=== PATIENT | female | born 1970 | race Caucasian/White ===

== ENCOUNTER 2016-04-10 | Emergency (ER) | payer MEDICARE, MEDICAID | END 2016-04-10 16:14 | disposition left against medical advice (07) | DX: Z53.21 Procedure and treatment not carried out due to patient leaving prior to being seen by health care provider (principal) ==

== ENCOUNTER 2016-04-19 | Outpatient (CLI) | payer MEDICARE, MEDICAID | END 2016-04-19 16:59 | disposition critical access hospital (66) | DX: M25.512 Pain in left shoulder (principal) | CPT/HCPCS: A0425; A0427 ==

== ENCOUNTER 2016-04-19 17:40 | Emergency (ER) | payer MEDICARE, MEDICAID | END 2016-04-19 18:24 | disposition home or self-care (01) | DX: S43.102D Unspecified dislocation of left acromioclavicular joint, subsequent encounter (principal); F10.120 Alcohol abuse with intoxication, uncomplicated; W19.XXXD Unspecified fall, subsequent encounter; I10 Essential (primary) hypertension; E11.9 Type 2 diabetes mellitus without complications; F17.200 Nicotine dependence, unspecified, uncomplicated ==

== ENCOUNTER 2016-05-22 16:43 | Emergency (ER) | payer MEDICARE, MEDICAID | END 2016-05-22 20:34 | disposition home or self-care (01) | DX: F10.10 Alcohol abuse, uncomplicated (principal); M25.512 Pain in left shoulder; G89.29 Other chronic pain; S43.102D Unspecified dislocation of left acromioclavicular joint, subsequent encounter; X58.XXXD Exposure to other specified factors, subsequent encounter; I10 Essential (primary) hypertension; E11.9 Type 2 diabetes mellitus without complications; E03.9 Hypothyroidism, unspecified; F17.200 Nicotine dependence, unspecified, uncomplicated ==

== ENCOUNTER 2016-09-06 09:54 | Emergency (ER) | payer MEDICARE, MEDICAID ==
[2016-09-06] MEDS ORDERED: ONDANSETRON 4 MG/2 ML VIAL IVP STA (10:12)
[2016-09-06] MEDS ORDERED: NITROGLYCERIN SL 0.4 MG TABLET SL STA (10:12)
[2016-09-06] MEDS ORDERED: MORPHINE 2 MG/ML SYRINGE IVP STA ×2 (10:12→11:52)
[2016-09-06] MEDS ORDERED: ASPIRIN CHEW 81 MG TABLET PO STA (10:12)
--- NOTE | 2016-09-06 10:20 | ED Physician Documentation ---
History of Present Illness - Stated complaint Stated Complaint: CHEST PX - Chief complaint Chief Complaint: Cardiac - Additonal information Additional information: hx from pt 45 female yesterday felt weak exhausted a little SOA at 2 Am developed severe pain between her shoulder blades and now the pain is in her chest she is unable to describe the nature/quality of the pain 10/10 severity worse laying down and breathing + SOA + nausea no vomit no abd pain no leg swelling Review of Systems Constitutional: denies: Fever, Chills Cardiac: reports: Chest pain / pressure Respiratory: reports: Dyspnea. denies: Cough GI: reports: Nausea. denies: Abdominal Pain, Vomiting : reports: Hysterectomy. denies: Now EGA Musculoskeletal: reports: Back pain. 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 : None HEENT: None Psych: Depression, Anxiety Musculoskeletal: None Derm: None - Past Surgical History Past Surgical History: Yes Ortho: Knee replacement /CLOTH SHRINKING SUPERVISOR: Hysterectomy - Present Medications Home Medications: Ambulatory Orders Medication Instructions Recorded Confirmed Propranolol [Inderal] 180 mg PO DAILY 04/04/16 09/06/16 Baclofen 1 tab PO TID 09/06/16 09/06/16 Indomethacin [Indocin] 25 mg PO TIDWM #21 capsule 09/06/16 - Allergies Allergies/Adverse Reactions: Allergies Allergy/AdvReac Type Severity Reaction Status Date / Time Penicillins Allergy Mild Itching Verified 04/10/16 14:29 adhesive Allergy Itching Verified 09/06/16 09:59 - Social History Does the pt smoke?: Yes Smoking Status: Current every day smoker Does the pt drink ETOH?: Yes Does the pt have substance abuse?: No - Immunizations Immunizations are current?: Yes - POLST Patient has POLST: No PD ED PE NORMAL - Vitals Vital signs reviewed: Yes - General General: Alert and oriented X 3 - HEENT HEENT: Atraumatic - Neck Neck: Supple, no meningeal sign - Cardiac Cardiac: RRR, No murmur - Respiratory Respiratory: No respiratory distress, Clear bilaterally - Abdomen Abdomen: Soft, Non tender - Derm Derm: Normal color - Extremities Extremities: No deformity, No tenderness to palpate, Normal ROM s pain, No edema , No calf tenderness / cord - Neuro Neuro: Alert and oriented X 3, sole blacker 2-12 intact, No motor deficit Results - Vitals Vitals: Vital Signs - 24 hr 09/06/16 09/06/16 09/06/16 09:57 11:05 11:53 Temperature 36.7 C Heart Rate 107 H 81 82 Respiratory 19 16 16 Rate Blood Pressure 142/92 H 126/81 H 113/73 O2 Saturation 100 98 98 Oxygen O2 Source Room air - EKG (time done) 1005 Rate: Rate (enter#) (87) Rhythm: NSR Intervals: Normal [place] Ischemia: Normal ST segments - Labs Labs: Laboratory Tests 09/06/16 09/06/16 09/06/16 10:05 10:05 10:05 WBC 8.0 RBC 4.08 L Hgb 14.5 Hct 41.8 MCV 102.3 H MCH 35.4 H MCHC 34.6 RDW 13.7 Plt Count 287 MPV 10.1 Neut # 5.3 Lymph # 1.9 [place] # 0.5 Eos # 0.1 Baso # 0.2 H Absolute Nucleated RBC 0.00 Nucleated RBCs 0.0 Sodium 136 Potassium 3.8 Chloride 98 L Carbon Dioxide 26 Anion Gap 12.0 BUN 15 Creatinine 0.6 Estimated GFR (MDRD) 107 Glucose 150 H Calcium 9.8 Total Bilirubin 0.8 AST 38 ALT 54 Alkaline Phosphatase 72 Troponin I < 0.04 Total Protein 8.6 H Albumin 4.6 Globulin 4.0 Albumin/Globulin Ratio 1.1 Lipase 21 L 09/06/16 13:00 WBC RBC Hgb Hct MCV MCH MCHC RDW Plt Count MPV Neut # Lymph # [place] # Eos # Baso # Absolute Nucleated RBC Nucleated RBCs Sodium Potassium Chloride Carbon Dioxide Anion Gap BUN Creatinine Estimated GFR (MDRD) Glucose Calcium Total Bilirubin AST ALT Alkaline Phosphatase Troponin I < 0.04 Total Protein Albumin Globulin Albumin/Globulin Ratio Lipase - Rads (name of study) CTPA Radiology: See rad report (no PE no dissection no aneurysm old rib fx) PD MEDICAL DECISION MAKING - ED course ED course: neg trop X 2 10 hr s/p onset of pain neg EKG CTA no PE or dissection etiology unclear but have ruled out the most life threatening issues pain is worse laying down and better sitting up so consider pericarditiis will reassure and dc with NSAIDS and PMD fup Departure - Departure Disposition: 01 Home, Self Care Clinical Impression: Chest pain Qualifiers: Chest pain type: unspecified Qualified Code(s): R07.9 - Chest pain, unspecified Condition: Good Instructions: ED Chest Pain Pericarditis Prescriptions: Indomethacin [Indocin] 25 mg PO TIDWM #21 capsule Comments: The tests for a heart attack were negative. The CT scan did not show a blood clot in your lungs nor an aneurysm or tear of your aorta. I suspect the pain may be due to inflammation around your heart called percarditis. The CT scan does not show fluid accumulating around your heart so it is OK for you to be treated at home. Take the anti-inflammatory medication I prescribed. Please follow up with your PMD for a recheck within the week - I recommend your PMD order an echocardiogram of your heart as an outpatient Forms: Activity restrictions
[2016-09-06] MEDS ORDERED: NITROGLYCERIN SL 0.4 MG TABLET SL ONE (10:23)
[2016-09-06] MEDS ORDERED: MORPHINE 2 MG/ML SYRINGE ONE ×2 (10:23→11:54)
[2016-09-06] MEDS ORDERED: ASPIRIN CHEW 81 MG TABLET ONE (10:23)
[2016-09-06] MEDS ORDERED: ONDANSETRON 4 MG/2 ML VIAL ONE (10:23)
[2016-09-06 10:35] LABS: BASOPHILS # (AUTO) 0.2 10^3/uL (0.0-0.1); BASOPHILS % (AUTO) 1.9 %; EOSINOPHILS # (AUTO) 0.1 10^3/uL (0.0-0.7); EOSINOPHILS % (AUTO) 0.8 %; HCT - HEMATOCRIT 41.8 % (37.0-47.0); HGB - HEMOGLOBIN 14.5 g/dL (12.0-16.0); LYMPHOCYTES # (AUTO) 1.9 10^3/uL (1.5-3.5); LYMPHOCYTES % (AUTO) 24.3 %; MEAN CORPUSCULAR HEMOGLOBIN 35.4 pg (27.0-31.0); MEAN CORPUSCULAR HGB CONC 34.6 g/dL (32.0-36.0); MEAN CORPUSCULAR VOLUME 102.3 fL (81.0-99.0); MEAN PLATELET VOLUME 10.1 fL (7.9-10.8); MONOCYTES # (AUTO) 0.5 10^3/uL (0.0-1.0); MONOCYTES % (AUTO) 6.7 %; NEUTROPHILS # (AUTO) 5.3 10^3/uL (1.5-6.6); NEUTROPHILS % (AUTO) 66.3 %; RED BLOOD COUNT 4.08 10^6/uL (4.20-5.40); RED CELL DISTRIBUTION WIDTH 13.7 % (12.0-15.0)
--- NOTE | 2016-09-06 10:44 | XRAY Preliminary Report ---
Exam: XR Chest 2 View PA/LAT IMPRESSION: Normal 2-view chest radiography. [facility] SITE ID: [id number]
--- NOTE | 2016-09-06 10:46 | XRAY Report ---
EXAM: CHEST RADIOGRAPHY EXAM DATE: 09/06/2016 10:08 AM. CLINICAL HISTORY: Chest pain. COMPARISON: 09/14/2015. TECHNIQUE: 2 views. FINDINGS: Lungs/Pleura: No focal opacities evident. No pleural effusion. No pneumothorax. Normal volumes. Mediastinum: Heart and mediastinal contours are unremarkable. Other: None. IMPRESSION: Normal 2-view chest radiography. [facility] Referring Provider Line: [phone] SITE ID: [id number]
[2016-09-06 10:49] LABS: ALBUMIN/GLOBULIN RATIO 1.1 (1.0-2.2); BILIRUBIN,TOTAL 0.8 mg/dL (0.2-1.0); CALCIUM 9.8 mg/dL (8.5-10.3); CREATININE 0.6 mg/dL (0.4-1.0); POTASSIUM 3.8 mmol/L (3.5-5.0); TOTAL PROTEIN 8.6 g/dL (6.7-8.2)
[2016-09-06] MEDS ORDERED: IOPAMIDOL-300 100 ML VIAL IVP ONE (12:43)
--- NOTE | 2016-09-06 13:26 | CT Preliminary Report ---
Exam: CT Chest Angio (AORTA) IMPRESSION: No evidence of an aortic aneurysm or dissection. No evidence of a pulmonary embolus. Old bilateral rib fractures. [facility] SITE ID: [id number]
--- NOTE | 2016-09-06 13:29 | CT Report ---
EXAM: CTA CHEST EXAM DATE: 09/06/2016 12:42 PM CLINICAL HISTORY: Cp back pain. TECHNIQUE: Prior to and following intravenous administration of , multiplanar 3D imaging of the chest was performed. In accordance with CT protocol optimization, one or more of the following dose reduction techniques w ere utilized for this exam: automated exposure control, adjustment of mA and/or KV based on patient s ize, or use of iterative reconstructive technique. COMPARISON: None. FINDINGS: THORACIC AORTA: The sinuses of Valsalva measures 2.9 cm. The sinotubular junction measures 2.5 cm. The proximal ascending thoracic aorta measures 2.8 cm. The distal ascending thoracic aorta measures 2.8 cm. The aortic arch measures 2.6 cm. The proximal descending thoracic aorta measures 2.2 cm. The middle descending thoracic aorta measures 2.3 cm. The distal descending thoracic aorta measures 2.1 cm. The thoracic aorta is without evidence of aneurysmal dilatation or dissection. THORACIC AORTA CALCIFICATIONS: There are no significant calcifications involving the thoracic aorta. GREAT VESSELS: The origins of the innominate, right subclavian, right common carotid, left common car otid and left subclavian arteries demonstrate a normal appearance. Both vertebral arteries are patent . LEFT ATRIAL APPENDAGE: The left atrial appendage is without evidence of a filling defect. PULMONARY ARTERIES: There is adequate opacification of the pulmonary arteries. There is no filling de fect to suggest the presence of a pulmonary embolus. UPPER ABDOMINAL AORTA: The upper abdominal aorta is without evidence of aneurysmal dilatation or diss ection. MESENTERIC ARTERIES: The origin of the celiac trunk is normal in appearance. The common hepatic, left gastric and splenic arteries demonstrates a normal course and caliber. The proximal SMA is normal in appearance. RENAL ARTERIES: There are 3 right renal arteries identified and a single left renal artery without ev idence of significant stenosis. CHEST CT: There is no evidence of a mediastinal mass or lymphadenopathy. There is no pulmonary mass, infiltrate, pleural effusion or pneumothorax seen. Old left third through fifth rib fractures are not ed. Old right seventh and eighth rib fractures are noted. The visualized upper abdominal organs are without evidence of an enhancing mass. There are degenerati ve changes of the thoracic and lumbar spine. IMPRESSION: No evidence of an aortic aneurysm or dissection. No evidence of a pulmonary embolus. Old bilateral rib fractures. [facility] Referring Provider Line: [phone] SITE ID: [id number]
[2016-09-06] MEDS ORDERED: INDOMETHACIN 25 MG CAPSULE PO STA (13:48)
[2016-09-06] MEDS ORDERED: INDOMETHACIN 25 MG CAPSULE PO ONE (13:50)
[2016-09-06 13:56] VITALS: BP 114/74
== END 2016-09-06 14:04 | disposition home or self-care (01) ==
LOC: ED 09:54
DX: R07.9 Chest pain, unspecified (principal); I10 Essential (primary) hypertension; E11.9 Type 2 diabetes mellitus without complications; E03.9 Hypothyroidism, unspecified; F17.200 Nicotine dependence, unspecified, uncomplicated
CPT/HCPCS: 36415; 71020; 71275; 80053; 83690; 84484; 85025; 93005; 93010; 96374; 96375; 96376; 99284; A9270; Q9967

== ENCOUNTER 2016-09-09 08:29 | Emergency (ER) | payer MEDICARE, MEDICAID ==
--- NOTE | 2016-09-09 08:38 | ED Physician Documentation ---
PD HPI CHEST PAIN - Stated complaint Stated Complaint: CHEST PAIN - Chief complaint Chief Complaint: Cardiac - History obtained from History obtained from: Patient - History of Present Illness Timing - onset: How many days ago (4-5) Timing - onset during: Rest (she has had sharp pain left anterior chest for at least 4-5 days, gradually worse. Seen 3 days ago for it and had CXR, ECG, troponin, labs, CT-A chest - which did not reveal obvious cause. Dx with possible pericarditis. She says the pain has stayed the same and today she is having nausea with vomiting and some loose stool. Started the Indomethacin 3 days ago. Had been on betablocker and Baclofen for 11 days to help with alcohol cessation.) Timing - details: Gradual onset, Still present Quality: Aching, Sharp, Pain Location: Left chest Radiation: Back Improved by: Rest Worsened by: Inspiration, Position (lying flat feel worse) Associated symptoms: Shortness of air, Nausea, Vomiting (today couple of times) . No: Diaphoresis, Feeling faint / dizzy Similar symptoms before: Has not had sx before Recently seen: Emergency Dept Review of Systems Constitutional: denies: Fever, Chills Nose: denies: Rhinorrhea / runny nose, Congestion Throat: denies: Sore throat Cardiac: reports: Chest pain / pressure. denies: Palpitations Respiratory: denies: Dyspnea, Cough, Wheezing GI: reports: Nausea, Vomiting (today), Diarrhea (twice today). denies: Abdominal Pain : denies: Dysuria, Frequency Neurologic: denies: Focal weakness, Numbness, Near syncope PD PAST MEDICAL HISTORY - Past Medical History Cardiovascular: Hypertension Respiratory: Shortness of breath Neuro: None Endocrine/Autoimmune: Type 2 diabetes, HyPOthyroidism GI: None SPECIFICATION WRITER: None : None HEENT: None Psych: Depression, Anxiety Musculoskeletal: None Derm: None - Past Surgical History Past Surgical History: Yes Ortho: Knee replacement /SPECIFICATION WRITER: Hysterectomy - Present Medications Home Medications: Ambulatory Orders Medication Instructions Recorded Confirmed Propranolol [Inderal] 180 mg PO DAILY 04/04/16 09/09/16 Baclofen 1 tab PO TID 09/06/16 09/09/16 Indomethacin [Indocin] 25 mg PO TIDWM #21 capsule 09/06/16 09/09/16 Hydrocodone/Acetaminophen [[place] 1 each PO Q6H PRN #20 tablet 09/09/16 5-325 Tablet] Ondansetron HCl [Zofran] 4 mg PO Q6H PRN #20 tablet 09/09/16 - Allergies Allergies/Adverse Reactions: Allergies Allergy/AdvReac Type Severity Reaction Status Date / Time Penicillins Allergy Mild Itching Verified 04/10/16 14:29 adhesive Allergy Itching Verified 09/06/16 09:59 - Social History Does the pt smoke?: Yes Smoking Status: Current every day smoker Does the pt drink ETOH?: Yes Does the pt have substance abuse?: No - Immunizations Immunizations are current?: Yes - POLST Patient has POLST: No PD ED PE NORMAL - Vitals Vital signs reviewed: Yes - General General: Alert and oriented X 3, No acute distress, Well developed/nourished, Other (very anxious) - Neck Neck: Supple, no meningeal sign, No adenopathy - Cardiac Cardiac: RRR, No murmur - Respiratory Respiratory: Clear bilaterally, Other (left chestwall tenderness about rib 5-6 mid axillary line without redness, sores. Bedside U/S showed no pericardial fluid.) - Abdomen Abdomen: Normal bowel sounds, Soft, Non tender - Derm Derm: Normal color, Warm and dry - Extremities Extremities: Normal ROM s pain, No edema, No calf tenderness / cord - Neuro Neuro: Alert and oriented X 3, No motor deficit, Normal speech - Psych Psych: No: Normal affect (anxious) Results - Vitals Vitals: Vital Signs - 24 hr 09/09/16 09/09/16 08:35 10:23 Temperature 36.5 C Heart Rate 62 62 Respiratory 24 16 Rate Blood Pressure 156/113 H 135/113 H O2 Saturation 100 100 Oxygen O2 Source Room air PD MEDICAL DECISION MAKING - ED course Complexity details: reviewed old records, re-evaluated patient, considered differential, d/w patient Departure - Departure Disposition: 01 Home, Self Care Clinical Impression: Pleuritic chest pain Condition: Stable Record reviewed to determine appropriate education?: Yes Instructions: ED Chest Pain Atypical Unkn Cause, ED Chest Pain Pleurisy Prescriptions: Hydrocodone/Acetaminophen [[place] 5-325 Tablet] 1 each PO Q6H PRN #20 tablet PRN Reason: Pain Ondansetron HCl [Zofran] 4 mg PO Q6H PRN #20 tablet PRN Reason: Nausea / Vomiting Comments: Continue current medications. Add Zofran for nausea and hydrocodone for pains as needed. Recheck if not improved over the next few more days. Discharge Date/Time: 09/09/16 10:36
[2016-09-09] MEDS ORDERED: HYDROmorphone 1 MG/ML SYRINGE IVP STA (08:57)
[2016-09-09] MEDS ORDERED: ONDANSETRON ODT 4 MG TABLET TL STA (08:57)
[2016-09-09] MEDS ORDERED: DEXAMETHASONE 10 MG/ML VIAL PO STA (08:58)
[2016-09-09] MEDS ORDERED: PROMETHAZINE 25 MG/1 ML VIAL IM STA (08:58)
[2016-09-09] MEDS ORDERED: DEXAMETHASONE 10 MG/ML VIAL ONE (09:04)
[2016-09-09] MEDS ORDERED: CHERRY SYRUP 10 ML UDC PO ONE (09:04)
[2016-09-09] MEDS ORDERED: HYDROmorphone 1 MG/ML SYRINGE ONE (09:04)
[2016-09-09] MEDS ORDERED: PROMETHAZINE 25 MG/1 ML VIAL ONE (09:04)
[2016-09-09] MEDS ORDERED: ONDANSETRON ODT 4 MG TABLET ONE (09:04)
[2016-09-09 10:24] VITALS: BP 135/113
--- NOTE | 2016-09-09 20:04 | ED Physician Documentation ---
ED Addendum - Addendum Addendum: 09/09/16 20:03 unscheduled return visit - chart accessed for follow up and educational purposes
== END 2016-09-09 10:36 | disposition home or self-care (01) ==
LOC: ED 08:29
DX: R07.81 Pleurodynia (principal); E11.9 Type 2 diabetes mellitus without complications; E03.9 Hypothyroidism, unspecified; F17.200 Nicotine dependence, unspecified, uncomplicated
CPT/HCPCS: 93005; 93010; 96372; 96374; 99283; 99284; A9270; J1170; Q0162

== ENCOUNTER 2016-10-06 03:22 | Outpatient (CLI) | payer MEDICARE, MEDICAID | END 2016-10-06 03:23 | disposition EMS.NT | LOC: EMS 03:22 | PROVIDERS: ATTEND Surgery | DX: R51 Headache (principal); R07.9 Chest pain, unspecified ==

== ENCOUNTER 2016-11-08 20:33 | Outpatient (CLI) | payer MEDICARE, MEDICAID | END 2016-11-08 20:34 | disposition critical access hospital (66) | LOC: EMS 20:33 | PROVIDERS: ATTEND Surgery | DX: T50.902A Poisoning by unspecified drugs, medicaments and biological substances, intentional self-harm, initial encounter (principal) | CPT/HCPCS: A0425; A0429 ==

== ENCOUNTER 2016-11-08 21:17 | Inpatient (IN) | payer MEDICARE, MEDICAID ==
[2016-11-08] MEDS ORDERED: WATER FOR INJECTION,STERILE 10 ML ONE (21:21)
[2016-11-08] MEDS ORDERED: OLANZapine 10 MG VIAL IM ONE (21:21)
[2016-11-08] MEDS ORDERED: OLANZapine 10 MG VIAL IM STA (21:24)
[2016-11-08 22:05] LABS: BASOPHILS % (AUTO) 0.3 %; EOSINOPHILS % (AUTO) 0.7 %; HCT - HEMATOCRIT 42.2 % (37.0-47.0); HGB - HEMOGLOBIN 14.5 g/dL (12.0-16.0); LYMPHOCYTES # (AUTO) 2.5 10^3/uL (1.5-3.5); LYMPHOCYTES % (AUTO) 42.5 %; MEAN CORPUSCULAR HEMOGLOBIN 34.8 pg (27.0-31.0); MEAN CORPUSCULAR HGB CONC 34.4 g/dL (32.0-36.0); MEAN CORPUSCULAR VOLUME 101.2 fL (81.0-99.0); MEAN PLATELET VOLUME 8.4 fL (7.9-10.8); MONOCYTES # (AUTO) 0.5 10^3/uL (0.0-1.0); MONOCYTES % (AUTO) 8.7 %; NEUTROPHILS # (AUTO) 2.8 10^3/uL (1.5-6.6); NEUTROPHILS % (AUTO) 47.8 %; RED BLOOD COUNT 4.17 10^6/uL (4.20-5.40); RED CELL DISTRIBUTION WIDTH 14.9 % (12.0-15.0); UNCORRECTED WHITE BLOOD COUNT 5.9 x10^3/uL; WHITE BLOOD COUNT 5.9 x10^3/uL (4.8-10.8)
[2016-11-08 22:20] LABS: ALBUMIN/GLOBULIN RATIO 1.1 (1.0-2.2); BILIRUBIN,TOTAL 0.4 mg/dL (0.2-1.0); BUN - BLOOD UREA NITROGEN 9 mg/dL (6-20); CALCIUM 8.9 mg/dL (8.5-10.3); CARBON DIOXIDE - CO2 18 mmol/L (21-32); CHLORIDE 105 mmol/L (101-111); CREATININE 0.8 mg/dL (0.4-1.0); GFR - MDRD 77 (>89); GLUCOSE 129 mg/dL (70-100); LIPASE 24 U/L (22-51); POTASSIUM 3.1 mmol/L (3.5-5.0); SALICYLATE < 6.0 mg/dL; SODIUM 139 mmol/L (135-145); TOTAL PROTEIN 8.8 g/dL (6.7-8.2)
[2016-11-08 22:29] LABS: ACETAMINOPHEN < 10 ug/mL (10-30)
[2016-11-09] MEDS ORDERED: OLANZapine 10 MG VIAL IM ONE ×3 (02:36→07:18)
[2016-11-09] MEDS ORDERED: WATER FOR INJECTION,STERILE 10 ML ONE ×3 (02:39→13:34)
[2016-11-09 02:54] LABS: BILIRUBIN,URINE NEGATIVE (NEGATIVE)
[2016-11-09 02:55] LABS: UA CHARGE (STRIP ONLY) YES; UR CULTURE IF IND NOT INDICATED
[2016-11-09] MEDS ORDERED: LORazepam 2 MG/ML SYRINGE ONE ×8 (05:08→16:28)
--- NOTE | 2016-11-09 05:30 | ED Physician Documentation ---
PD HPI MHE - Stated complaint Stated Complaint: SI - Chief complaint Chief Complaint: MHE - History obtained from History obtained from: EMS - History of Present Illness Primary symptom: Suicidal ideation, Psychosis Timing - onset: Today Similar symptoms before: Work up / diagnostics, Treatment, Follow up Recently seen: Not recently seen - Additional information Additional information: Patient is a 45 year old female with a history of psychiatric disorder and etoh abuse who is presenting to the emergency department for suicidal ideation and psychosis. according to ems and police they were called since patient was found down in the house, patient was aroused by found to be intoxicated and stating that she wanted to . when patient arrived in the emergency department she was yelling and uncontrollable. 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: Hysterectomy - Present Medications Home Medications: Ambulatory Orders Medication Instructions Recorded Confirmed Propranolol [Inderal] 120 mg PO DAILY 04/04/16 11/08/16 Ondansetron HCl [Zofran] 4 mg PO Q6H PRN #20 tablet 09/09/16 11/08/16 Baclofen 20 mg ORAL TID 11/08/16 11/08/16 Ibuprofen 600 mg ORAL PRN PRN 11/08/16 11/08/16 Levothyroxine [Synthroid] 50 mcg ORAL DAILY 11/08/16 11/08/16 Omeprazole 20 mg ORAL DAILY 11/08/16 11/08/16 - Allergies Allergies/Adverse Reactions: Allergies Allergy/AdvReac Type Severity Reaction Status Date / Time Penicillins Allergy Mild Itching Verified 04/10/16 14:29 adhesive Allergy Itching Verified 09/06/16 09:59 - Social History Does the pt smoke?: Yes Smoking Status: Current every day smoker Does the pt drink ETOH?: Yes Does the pt have substance abuse?: No - Immunizations Immunizations are current?: Yes - POLST Patient has POLST: No PD ED PE NORMAL - Vitals Vital signs reviewed: Yes - HEENT HEENT: Atraumatic - Derm Derm: No rash - Extremities Extremities: No deformity PD ED PE EXPANDED - General General: Alert, Disheveled, poorly kept - HEENT HEENT: PERRL. No: Head injury - Eyes Eyes: PERRL - Cardiac Cardiac: Tachy - Respiratory Respiratory: No: Labored, Stridor, Retractions, Wheezing - Extremities Extremities: No: Deformity, Tenderness - Psych Psych: Intoxicated / AOB, Combative Results - Vitals Vitals: Vital Signs - 24 hr 11/08/16 11/08/16 11/09/16 21:42 23:28 00:50 Temperature 36.5 C 36.5 C 36.0 C L Heart Rate 94 88 84 Respiratory 16 14 16 Rate Blood Pressure 137/65 H 141/85 H 100/68 O2 Saturation 94 95 98 11/09/16 11/09/16 11/09/16 01:44 03:02 03:54 Temperature 36.1 C L Heart Rate 73 94 99 Respiratory 15 17 16 Rate Blood Pressure 111/78 119/78 120/76 O2 Saturation 100 93 94 11/09/16 05:19 Temperature Heart Rate 110 H Respiratory Rate Blood Pressure 140/89 H O2 Saturation 95 Oxygen O2 Source Room air - Labs Labs: Laboratory Tests 11/08/16 11/08/16 11/08/16 21:59 21:59 21:59 WBC 5.9 RBC 4.17 L Hgb 14.5 Hct 42.2 MCV 101.2 H MCH 34.8 H MCHC 34.4 RDW 14.9 Plt Count 237 MPV 8.4 Neut # 2.8 Lymph # 2.5 [place] # 0.5 Eos # 0.0 Baso # 0.0 Absolute Nucleated RBC 0.00 Nucleated RBCs 0.0 Sodium 139 Potassium 3.1 L Chloride 105 Carbon Dioxide 18 L Anion Gap 16.0 H BUN 9 Creatinine 0.8 Estimated GFR (MDRD) 77 L Glucose 129 H Calcium 8.9 Total Bilirubin 0.4 AST 147 H ALT 116 H Alkaline Phosphatase 96 Total Protein 8.8 H Albumin 4.7 Globulin 4.1 Albumin/Globulin Ratio 1.1 Lipase 24 TSH 2.38 Urine Color Urine Clarity Urine pH Ur Specific [place] Urine Protein Urine Glucose (UA) Urine Ketones Urine Occult Blood Urine Nitrite Urine Bilirubin Urine Urobilinogen Ur Leukocyte Esterase Ur Microscopic Review Urine Culture Comments Salicylates < 6.0 Urine Opiates Screen Ur Oxycodone Screen Urine Methadone Screen Ur Propoxyphene Screen Acetaminophen < 10 L Ur Barbiturates Screen Ur Tricyclics Screen Ur Phencyclidine Scrn Ur Amphetamine Screen U Methamphetamines Scrn U Benzodiazepines Scrn Urine Cocaine Screen U Cannabinoids Screen Ethyl Alcohol 318.4 11/09/16 11/09/16 02:49 02:49 WBC RBC Hgb Hct MCV MCH MCHC RDW Plt Count MPV Neut # Lymph # [place] # Eos # Baso # Absolute Nucleated RBC Nucleated RBCs Sodium Potassium Chloride Carbon Dioxide Anion Gap BUN Creatinine Estimated GFR (MDRD) Glucose Calcium Total Bilirubin AST ALT Alkaline Phosphatase Total Protein Albumin Globulin Albumin/Globulin Ratio Lipase TSH Urine Color YELLOW Urine Clarity CLEAR Urine pH 6.0 Ur Specific [place] <=1.005 Urine Protein NEGATIVE Urine Glucose (UA) NEGATIVE Urine Ketones NEGATIVE Urine Occult Blood TRACE-LYSE Urine Nitrite NEGATIVE Urine Bilirubin NEGATIVE Urine Urobilinogen 0.2 (NORMAL) Ur Leukocyte Esterase NEGATIVE Ur Microscopic Review NOT INDICATED Urine Culture Comments NOT INDICATED Salicylates Urine Opiates Screen NEGATIVE Ur Oxycodone Screen NEGATIVE Urine Methadone Screen NEGATIVE Ur Propoxyphene Screen NEGATIVE Acetaminophen Ur Barbiturates Screen NEGATIVE Ur Tricyclics Screen NEGATIVE Ur Phencyclidine Scrn NEGATIVE Ur Amphetamine Screen NEGATIVE U Methamphetamines Scrn NEGATIVE U Benzodiazepines Scrn NEGATIVE Urine Cocaine Screen NEGATIVE U Cannabinoids Screen POSITIVE H Ethyl Alcohol PD MEDICAL DECISION MAKING - ED course Complexity details: reviewed old records, reviewed results, re-evaluated patient , considered differential ED course: Patient was seen and examined at bedside. patient was combative and a risk to herself and others. Patient was physically restrained and then chemically restrained with zyprexa 10mg IM. Patient's labs were then drawn and urine was collected. Patient was calm for about 4 hours and then had to be redosed with zyprexa 10mg. Patient was observed for another 2 hours and again became agitated and got 2mg of ativan. Patient was signed over Dr. Anne pending sobriety and psychiatric evaluation. Departure - Departure Clinical Impression: Polysubstance abuse
[2016-11-09] MEDS ORDERED: LORazepam 2 MG/ML SYRINGE IVP STA ×7 (05:37→16:46)
[2016-11-09] MEDS ORDERED: OLANZapine 10 MG VIAL IM STA ×2 (07:14→09:09)
[2016-11-09] MEDS ORDERED: SODIUM CHLORIDE FLUSH 0.9% 10 ML SYRINGE IVP ONE ×3 (07:18→14:40)
[2016-11-09] MEDS: SODIUM CHLORIDE 0.9% 1,000 ML IV ONE ×2 (08:48→13:54)
[2016-11-09] MEDS ORDERED: HALOPERIDOL 5 MG/ML VIAL IM STA ×2 (09:13→09:42)
[2016-11-09] MEDS ORDERED: HALOPERIDOL 5 MG/ML VIAL ONE ×2 (09:17→09:46)
[2016-11-09] MEDS ORDERED: diphenhydrAMINE INJ 50 MG/ML VIAL IM STA (10:14)
[2016-11-09] MEDS ORDERED: diphenhydrAMINE INJ 50 MG/ML VIAL ONE (10:28)
[2016-11-09] MEDS ORDERED: LORazepam 2 MG/ML SYRINGE IM STA (11:00)
[2016-11-09] MEDS ORDERED: KETAMINE 500 MG/10 ML VIAL IM STA (11:37)
[2016-11-09] MEDS ORDERED: KETAMINE 500 MG/10 ML VIAL ONE (11:47)
[2016-11-09] MEDS ORDERED: SUCCINYLCHOLINE 200 MG/10 ML VIAL ONE (12:26)
[2016-11-09] MEDS ORDERED: SUCCINYLCHOLINE 200 MG/10 ML VIAL IVP STA (12:30)
[2016-11-09] MEDS ORDERED: IPRATROPIUM/ALBUTEROL 3 ML NEB INH STA (12:45)
--- NOTE | 2016-11-09 13:15 | XRAY Preliminary Report ---
Exam: XR Chest 1 View IMPRESSION: Endotracheal tube tip 3 cm above quang. No pneumothorax [facility] SITE ID: [id number]
--- NOTE | 2016-11-09 13:18 | XRAY Report ---
EXAM: CHEST RADIOGRAPHY EXAM DATE: 11/09/2016 12:52 PM. CLINICAL HISTORY: Post intubation. COMPARISON: 09/06/2016. TECHNIQUE: 1 view. FINDINGS: Lungs/Pleura: No focal opacities evident. No pleural effusion. No pneumothorax. Mediastinum: Within exam limitations, cardiomediastinal contour is normal. Other: Endotracheal tube tip is located 3 cm above quang. IMPRESSION: Endotracheal tube tip 3 cm above quang. No pneumothorax [facility] Referring Provider Line: [phone] SITE ID: [id number]
--- NOTE | 2016-11-09 13:24 | ED Physician Documentation ---
History of Present Illness - Stated complaint Stated Complaint: SI - Chief complaint Chief Complaint: [facility] PAST MEDICAL HISTORY - Past Medical History Cardiovascular: Hypertension Respiratory: Shortness of breath Neuro: None Endocrine/Autoimmune: Type 2 diabetes, HyPOthyroidism GI: None [employer] SPECIALIST: None : None HEENT: None Psych: Depression, Anxiety Musculoskeletal: None Derm: None - Past Surgical History Past Surgical History: Yes Ortho: Knee replacement /[employer] SPECIALIST: Hysterectomy - Present Medications Home Medications: Ambulatory Orders Medication Instructions Recorded Confirmed Propranolol [Inderal] 120 mg PO DAILY 04/04/16 11/08/16 Ondansetron HCl [Zofran] 4 mg PO Q6H PRN #20 tablet 09/09/16 11/08/16 Baclofen 20 mg ORAL TID 11/08/16 11/08/16 Ibuprofen 600 mg ORAL PRN PRN 11/08/16 11/08/16 Levothyroxine [Synthroid] 50 mcg ORAL DAILY 11/08/16 11/08/16 Omeprazole 20 mg ORAL DAILY 11/08/16 11/08/16 - Allergies Allergies/Adverse Reactions: Allergies Allergy/AdvReac Type Severity Reaction Status Date / Time Penicillins Allergy Mild Itching Verified 04/10/16 14:29 adhesive Allergy Itching Verified 09/06/16 09:59 - Social History Does the pt smoke?: Yes Smoking Status: Current every day smoker Does the pt drink ETOH?: Yes Does the pt have substance abuse?: No - Immunizations Immunizations are current?: Yes - POLST Patient has POLST: No Results - Vitals Vitals: Vital Signs - 24 hr 11/08/16 11/08/16 11/09/16 21:42 23:28 00:50 Temperature 36.5 C 36.5 C 36.0 C L Heart Rate 94 88 84 Respiratory 16 14 16 Rate Blood Pressure 137/65 H 141/85 H 100/68 O2 Saturation 94 95 98 11/09/16 11/09/16 11/09/16 01:44 03:02 03:54 Temperature 36.1 C L Heart Rate 73 94 99 Respiratory 15 17 16 Rate Blood Pressure 111/78 119/78 120/76 O2 Saturation 100 93 94 11/09/16 11/09/16 11/09/16 05:19 09:02 09:34 Temperature Heart Rate 110 H 132 H 140 H Respiratory 30 H 38 H Rate Blood Pressure 140/89 H 168/88 H O2 Saturation 95 92 94 11/09/16 11/09/16 11/09/16 11:00 12:30 13:00 Temperature Heart Rate 188 H 160 H 152 H Respiratory Rate Blood Pressure 144/95 H 192/121 H O2 Saturation 85 L 94 11/09/16 11/09/16 11/09/16 13:30 14:00 14:28 Temperature Heart Rate 135 H 135 H 118 H Respiratory 16 Rate Blood Pressure 156/91 H 151/93 H O2 Saturation 97 99 11/09/16 14:58 Temperature Heart Rate 125 H Respiratory Rate Blood Pressure 148/94 H O2 Saturation 96 Oxygen O2 Source Mechanical ventilator Oxygen Flow Rate 10 - Labs Labs: Laboratory Tests 11/08/16 11/08/16 11/08/16 21:59 21:59 21:59 WBC 5.9 RBC 4.17 L Hgb 14.5 Hct 42.2 MCV 101.2 H MCH 34.8 H MCHC 34.4 RDW 14.9 Plt Count 237 MPV 8.4 Neut # 2.8 Lymph # 2.5 [place] # 0.5 Eos # 0.0 Baso # 0.0 Absolute Nucleated RBC 0.00 Nucleated RBCs 0.0 Bld Gas Analysis Time Sample Site ABG pH ABG pCO2 ABG pO2 ABG HCO3 ABG Total CO2 ABG O2 Saturation ABG Base Excess Dustin Test Respiration Rate O2 Delivery Device Vent Mode FiO2 Tidal Volume PEEP Pressure Support Vent Sodium 139 Potassium 3.1 L Chloride 105 Carbon Dioxide 18 L Anion Gap 16.0 H BUN 9 Creatinine 0.8 Estimated GFR (MDRD) 77 L Glucose 129 H Calcium 8.9 Total Bilirubin 0.4 AST 147 H ALT 116 H Alkaline Phosphatase 96 Total Protein 8.8 H Albumin 4.7 Globulin 4.1 Albumin/Globulin Ratio 1.1 Lipase 24 TSH 2.38 Urine Color Urine Clarity Urine pH Ur Specific [place] Urine Protein Urine Glucose (UA) Urine Ketones Urine Occult Blood Urine Nitrite Urine Bilirubin Urine Urobilinogen Ur Leukocyte Esterase Ur Microscopic Review Urine Culture Comments Salicylates < 6.0 Urine Opiates Screen Ur Oxycodone Screen Urine Methadone Screen Ur Propoxyphene Screen Acetaminophen < 10 L Ur Barbiturates Screen Ur Tricyclics Screen Ur Phencyclidine Scrn Ur Amphetamine Screen U Methamphetamines Scrn U Benzodiazepines Scrn Urine Cocaine Screen U Cannabinoids Screen Ethyl Alcohol 318.4 0811/09/16 11/09/16 02:49 02:49 06:49 WBC RBC Hgb Hct MCV MCH MCHC RDW Plt Count MPV Neut # Lymph # [place] # Eos # Baso # Absolute Nucleated RBC Nucleated RBCs Bld Gas Analysis Time Sample Site ABG pH ABG pCO2 ABG pO2 ABG HCO3 ABG Total CO2 ABG O2 Saturation ABG Base Excess Dustin Test Respiration Rate O2 Delivery Device Vent Mode FiO2 Tidal Volume PEEP Pressure Support Vent Sodium Potassium Chloride Carbon Dioxide Anion Gap BUN Creatinine Estimated GFR (MDRD) Glucose Calcium Total Bilirubin AST ALT Alkaline Phosphatase Total Protein Albumin Globulin Albumin/Globulin Ratio Lipase TSH Urine Color YELLOW Urine Clarity CLEAR Urine pH 6.0 Ur Specific [place] <=1.005 Urine Protein NEGATIVE Urine Glucose (UA) NEGATIVE Urine Ketones NEGATIVE Urine Occult Blood TRACE-LYSE Urine Nitrite NEGATIVE Urine Bilirubin NEGATIVE Urine Urobilinogen 0.2 (NORMAL) Ur Leukocyte Esterase NEGATIVE Ur Microscopic Review NOT INDICATED Urine Culture Comments NOT INDICATED Salicylates Urine Opiates Screen NEGATIVE Ur Oxycodone Screen NEGATIVE Urine Methadone Screen NEGATIVE Ur Propoxyphene Screen NEGATIVE Acetaminophen Ur Barbiturates Screen NEGATIVE Ur Tricyclics Screen NEGATIVE Ur Phencyclidine Scrn NEGATIVE Ur Amphetamine Screen NEGATIVE U Methamphetamines Scrn NEGATIVE U Benzodiazepines Scrn NEGATIVE Urine Cocaine Screen NEGATIVE U Cannabinoids Screen POSITIVE H Ethyl Alcohol 49.0 11/09/16 12:30 WBC RBC Hgb Hct MCV MCH MCHC RDW Plt Count MPV Neut # Lymph # [place] # Eos # Baso # Absolute Nucleated RBC Nucleated RBCs Bld Gas Analysis Time 1326 Sample Site LEFT RADIAL ABG pH 7.30 L ABG pCO2 36 ABG pO2 82 ABG HCO3 17.5 L ABG Total CO2 18.6 L ABG O2 Saturation 94 ABG Base Excess -8.1 L Dustin Test POSITIVE Respiration Rate 16 O2 Delivery Device VENTILATOR Vent Mode SIMV FiO2 60.00 Tidal Volume 450 PEEP 5 Pressure Support Vent 10 Sodium Potassium Chloride Carbon Dioxide Anion Gap BUN Creatinine Estimated GFR (MDRD) Glucose Calcium Total Bilirubin AST ALT Alkaline Phosphatase Total Protein Albumin Globulin Albumin/Globulin Ratio Lipase TSH Urine Color Urine Clarity Urine pH Ur Specific [place] Urine Protein Urine Glucose (UA) Urine Ketones Urine Occult Blood Urine Nitrite Urine Bilirubin Urine Urobilinogen Ur Leukocyte Esterase Ur Microscopic Review Urine Culture Comments Salicylates Urine Opiates Screen Ur Oxycodone Screen Urine Methadone Screen Ur Propoxyphene Screen Acetaminophen Ur Barbiturates Screen Ur Tricyclics Screen Ur Phencyclidine Scrn Ur Amphetamine Screen U Methamphetamines Scrn U Benzodiazepines Scrn Urine Cocaine Screen U Cannabinoids Screen Ethyl Alcohol - Rads (name of study) Portable CXR Radiology: Prelim report reviewed, EMP read contemporaneously, See rad report ( ET tube 3 cm above the quang. No pneumothorax.) Head CT w/o Radiology: Prelim report reviewed, EMP read contemporaneously, See rad report ( Mild cerebral atrophy, greater than expected for age. Stable, otherwise unremarkable exam.) Procedures - Intubation Provider: Emergency physician Medications: Ketamine (200 mg), Succinylcholine (80 mg) Blade: Guillermina Tube: Size-enter number (7.5 Fr), Cuffed, Marked at lips-enter cm (27) Route: Oral Confirmation: Direct visualization, Bilateral breath sounds, No abdominal breath sound, End tidal CO2, Pulse ox, Chest xray Complications: No compications PD MEDICAL DECISION MAKING - ED course Complexity details: reviewed old records, reviewed results, re-evaluated patient , considered differential, d/w ux consultant ED course: The patient's care was turned over to me at change of shift. Please see Dr. White's note for her initial presentation. The plan at the time was for her to sober up and undergo evaluation by the medical records library professor. She had been agitated from the time of her arrival, and the agitation continued despite treatment with Zyprexa and lorazepam. She was in four-point restraints at the time when I initially encountered her. She was incoherent, and not responding to requests to stop screaming inconsolably. She was given multiple injections of Zyprexa, up to a total of 30 mg over a period of 2 hours, as well as repeated injections of lorazepam, with no appreciable effect on her agitation. Haldol 5 mg administered IM to no avail. Because of her agitation an IV was not able to be established, and the patient was becoming tachycardic in the 130- 150 range, and remained delirious. Ketamine 200 mg was administered IM, and she subsequently exhibited less agitation and stopped screaming. However she remained tachycardic and her oxygen saturation dipped into the mid 70s. An IV was established, and the patient was intubated after administration of succinylcholine 80 mg IV. With the endotracheal tube at 27 cm at the lip she had equal breath sounds bilaterally and good colorometric change on CO2 detector. Her breath sounds are rhonchorous. A post intubation chest x-ray reveals the endotracheal tube tip 3 cm above the quang. There is no pneumothorax, and no acute pulmonary infiltrate. Subsequently a head CT was performed and it reveals no acute intracranial abnormality. With vent settings of SIMV rate 16, total volume 450 L/min, PEEP of 5, pressure support of 10, and 100% oxygen, the patient's initial arterial blood gas reveals a pH of 7.30, PCO2 36, and PO2 of 82, with oxygen saturation of 94%. She was given vecuronium 10 mg IV 2, along with additional 2 mg doses of lorazepam. A banana bag was administered IV due to her history of alcoholism. I discussed her condition with the hospitalist who will admit her to the intensive care unit. - Critical Care Time(min): 60 Time Includes: Direct patient care, Review records, Reassess patient, Document care, Coordinate care Data interpretation: Labs, Pulse ox, ABG, CXR Procedures excluded from critical care time: Intubation Departure - Departure Disposition: 66 [facility] DC/Xfer Clinical Impression: Polysubstance abuse, Delirium, Alcohol abuse Alcoholic intoxication Qualifiers: Complication of substance-induced condition: with delirium Qualified Code(s): F10.121 - Alcohol abuse with intoxication delirium Condition: Critical
[2016-11-09] MEDS ORDERED: VECURONIUM 10 MG VIAL IVP STA ×3 (13:27→16:48)
[2016-11-09] MEDS ORDERED: VECURONIUM 10 MG VIAL ONE ×3 (13:33→16:31)
[2016-11-09 13:34] LABS: ABG ANALYSIS TIME 1326; ABG BASE EXCESS -8.1 mmol/L (-2.0-3.0); ABG HCO3 17.5 mmol/L (22.0-26.0); ABG OXYGEN SATURATION 94 % (94-98); ABG PCO2 36 mmHg (34-45); ABG PO2 82 mmHg (80-100); ABG SITE OF DRAW LEFT RADIAL; ABG TCO2 18.6 MMOL/L (21.0-29.0); ALLEN TEST POSITIVE
[2016-11-09 13:35] LABS: ABG MODE OF VENTILATION SIMV; ABG O2 DEVICE VENTILATOR; ABG PEAK END EXPIRATORY PRESSU 5 cmH2O; ABG PRESSURE SUPPORT VENT 10 cmH2O; ABG RESPIRATORY RATE 16 b/min
[2016-11-09] MEDS ORDERED: IPRATROPIUM/ALBUTEROL 3 ML NEB INH ONE (14:01)
--- NOTE | 2016-11-09 14:03 | CT Preliminary Report ---
Exam: CT Head W/O IMPRESSION: 1. Mild cerebral atrophy, greater than expected for age. 2. Stable, otherwise unremarkable exam. [facility] SITE ID: [id number]
--- NOTE | 2016-11-09 14:11 | CT Report ---
EXAM: CT HEAD EXAM DATE: 11/09/2016 01:51 PM. CLINICAL HISTORY: Acutely altered mental status. Intubated. COMPARISON: 01/24/2016. TECHNIQUE: Multiaxial CT images were obtained from the foramen magnum to the vertex. IV contrast: Non e. Reformats: Coronal. In accordance with CT protocol optimization, one or more of the following dose reduction techniques w ere utilized for this exam: automated exposure control, adjustment of mA and/or KV based on patient s ize, or use of iterative reconstructive technique. FINDINGS: Parenchyma: No intraparenchymal hemorrhage. No evidence of mass, midline shift, or CT findings of inf arction. Str[place]-white differentiation is distinct. Extraaxial Spaces: Stable mild cerebral atrophy. No subdural or epidural collections identified. Ventricles: Normal in size and position. Sinuses: Imaged paranasal sinuses, orbits, and mastoids show no significant abnormality. Bones: No evidence of fracture or calvarial defect. Other: Intubated. IMPRESSION: 1. Mild cerebral atrophy, greater than expected for age. 2. Stable, otherwise unremarkable exam. [facility] Referring Provider Line: [phone] SITE ID: [id number]
[2016-11-09] MEDS ORDERED: FOLIC ACID INJ 1 MG, THIAMINE INJ 100 MG, MAGNESIUM SULFATE 2 GM, MULTIVITAMIN 10 ML in... IV STA ×5 (14:46)
[2016-11-09] MEDS ORDERED: PROCHLORPERAZINE 10 MG/2 ML VIAL IVP PRN (15:52)
[2016-11-09] MEDS: PROPOFOL 1000 MG/100 ML 100 ML IV SCH ×2 (17:14→23:00)
[2016-11-09] MEDS: MIDAZOLAM DRIP 100 ML IV SCH (18:16)
[2016-11-09 18:42] LABS: INR 1.1 (0.8-1.2)
[2016-11-09 18:44] LABS: CALCIUM 8.5 mg/dL (8.5-10.3); CREATININE 0.9 mg/dL (0.4-1.0); MAGNESIUM 1.9 mg/dL (1.7-2.8)
[2016-11-09] MEDS: SODIUM CHLORIDE 0.9% 1,000 ML IV SCH (18:51)
[2016-11-09] MEDS ORDERED: DEXTROSE 5%-0.9% NACL 1,000 ML IV SCH (19:00)
[2016-11-09] MEDS: CHLORHEXIDINE GLUCONATE 15 ML UDC PO SCH (22:03)
[2016-11-09] MEDS: PANTOPRAZOLE 40 MG VIAL IVP SCH (22:03)
[2016-11-09] MEDS: SODIUM CHLORIDE FLUSH 0.9% 10 ML SYRINGE IVP SCH (22:03)
--- NOTE | 2016-11-09 22:38 | XRAY Preliminary Report ---
Exam: XR Chest 1 View IMPRESSION: 1. ETT tip 1.8 cm above quang. 2. NG tube tip in body of stomach. 3. Possible atelectasis versus infiltrate in medial left base. [facility] SITE ID: [id number]
--- NOTE | 2016-11-09 22:41 | XRAY Report ---
EXAM: CHEST RADIOGRAPHY EXAM DATE: 11/09/2016 10:07 PM. CLINICAL HISTORY: OG tube placement. COMPARISON: An earlier study of this same date. TECHNIQUE: 1 view. FINDINGS: Lungs/Pleura: Hyperexpanded, with possible atelectasis versus infiltrate in left retrocardiac region. No consolidation, effusion, or pneumothorax. Mediastinum: Normal heart size, unchanged. Upper lobe vessels not distended. Other: Endotracheal tube tip at level of lower edge of the aortic arch, about 1.8 cm above quang. Na sogastric tube tip in body of stomach. IMPRESSION: 1. ETT tip 1.8 cm above quang. 2. NG tube tip in body of stomach. 3. Possible atelectasis versus infiltrate in medial left base. [facility] Referring Provider Line: [phone] SITE ID: [id number]
[2016-11-10] MEDS: SODIUM CHLORIDE FLUSH 0.9% 10 ML SYRINGE IVP SCH ×3 (00:41→20:56)
[2016-11-10] MEDS: MIDAZOLAM DRIP 100 ML IV SCH ×3 (02:05→19:10)
[2016-11-10] MEDS: SODIUM CHLORIDE 0.9% 1,000 ML IV SCH ×3 (02:08→19:09)
[2016-11-10] MEDS: PROPOFOL 1000 MG/100 ML 100 ML IV SCH ×6 (02:27→21:47)
[2016-11-10 04:40] LABS: ABG BASE EXCESS -1.4 mmol/L (-2.0-3.0); ABG HCO3 22.2 mmol/L (22.0-26.0); ABG MODE OF VENTILATION SIMV; ABG O2 DEVICE VENT; ABG OXYGEN SATURATION 98 % (94-98); ABG PCO2 34 mmHg (34-45); ABG PEAK END EXPIRATORY PRESSU 5 cmH2O; ABG PH 7.43 (7.35-7.45); ABG PO2 104 mmHg (80-100); ABG PRESSURE SUPPORT VENT 12 cmH2O; ABG RESPIRATORY RATE 16 b/min; ABG SITE OF DRAW RIGHT RADIAL; ABG TCO2 23.2 MMOL/L (21.0-29.0); ALLEN TEST POSITIVE
[2016-11-10] MEDS ORDERED: PANTOPRAZOLE 40 MG VIAL IVP SCH (07:00)
[2016-11-10] MEDS: PANTOPRAZOLE 40 MG VIAL IVP SCH ×2 (08:32→20:56)
[2016-11-10] MEDS: MULTIVITAMIN 10 ML, THIAMINE INJ 100 MG, FOLIC ACID INJ 1 MG in D5.45NS W/20 MEQ KCL 1,... IV SCH (08:33)
[2016-11-10] MEDS: CHLORHEXIDINE GLUCONATE 15 ML UDC PO SCH ×2 (08:33→20:56)
[2016-11-10] MEDS ORDERED: A & D OINTMENT 5 GM PACKET TOP ONE (08:39)
[2016-11-10] MEDS: NICOTINE 14 MG PATCH TOP SCH (12:34)
--- NOTE | 2016-11-10 13:58 | PROVIDER PROGRESS NOTE ---
Assessment/Plan - Problem List (1) Delirium Assessment/Plan: Continue ventilator support and sedation and follow blood alcohol level. Possible weaning of sedatives and vent tomorrow. (2) Alcohol abuse Assessment/Plan: As above (3) DVT prophylaxis Assessment/Plan: No Heparin or Lovenox due to risk of GI bleed with alcohol abuse history. Pt has stockings ordered. - Current Meds Current Meds: Current Medications Generic Name Dose Route Start Last Admin Trade Name Freq PRN Reason Stop Dose Admin Chlorhexidine Gluconate 15 ml 11/09/16 21:00 11/10/16 08:33 Peridex PO 15 ml BID VAIBHAV Administration Midazolam HCl 100 mls @ 4.173 mls/hr 11/09/16 16:00 11/10/16 10:38 Versed Drip IV 11 mls/hr .[id number] VAIBHAV Administration Protocol 0.04 MG/KG/HR Propofol 100 mls @ 1.565 mls/hr 11/09/16 16:00 11/10/16 10:15 Diprivan IV 24.75 mls/hr TITR VAIBHAV Administration Protocol 5 MCG/KG/MIN Multivitamins 10 ml/ Thiamine 1,011.2 mls @ 100 mls/hr 11/10/16 09:00 11/10/16 08:33 HCl 100 mg/ Folic Acid 1 mg/ IV 100 mls/hr Potassium Chloride/Dextrose/ DAILY VAIBHAV Administration Sod Cl Sodium Chloride 1,000 mls @ 125 mls/hr 11/09/16 19:00 11/10/16 10:53 Normal Saline 0.9% IV 125 mls/hr .Q8H VAIBHAV Administration Nicotine 1 patch 11/10/16 13:00 11/10/16 12:34 Nicoderm TOP 1 patch DAILY VAIBHAV Administration Pantoprazole Sodium 40 mg 11/09/16 21:00 11/10/16 08:32 Protonix IVP 40 mg BID VAIBHAV Administration Sodium Chloride 10 ml 11/09/16 22:00 11/10/16 00:41 Normal Saline Flush 0.9% IVP Not Given Q8HR VAIBHAV - Lab Result Fish Bone Diagrams: 11/08/16 21:59 11/09/16 18:29 - Additional Planning My Orders: My Active Orders 11/09/16 17:45 CUL, MRSA SCREEN [RM] Stat 11/09/16 18:01 Ventilator Bundle [RC] Q8H 11/09/16 19:00 Sodium Chloride 0.9% [Normal Saline 0.9%] 1,000 ml IV 125 mls/hr 11/09/16 21:00 Pantoprazole [Protonix] 40 mg IVP BID 11/10/16 09:00 Multivitamin [Infuvite] 10 ml Thiamine Inj [Vitamin B-1 Inj] 100 mg Folic Acid Inj 1 mg D5.45ns W/20 Meq KCl 1,000 ml IV DAILY 11/10/16 13:00 Nicotine 14 mg Patch [Nicoderm] 1 patch TOP DAILY Subjective - Subjective Nursing Reports: Other (Pt intubated and sedated) Objective Vital Signs: Vital Signs - 24 hr 11/09/16 11/09/16 11/09/16 16:30 16:45 17:52 Temperature Heart Rate 132 H 120 H Heart Rate [ 144 H Monitoring electrodes] Respiratory 16 Rate Blood Pressure 172/89 H Blood Pressure 173/119 H [Left Brachial artery] O2 Saturation 99 95 11/09/16 11/09/16 11/09/16 18:26 19:03 19:28 Temperature 37 C 37.2 C Heart Rate 139 H Heart Rate [ 155 H 145 H Monitoring electrodes] Respiratory 37 H 22 Rate Blood Pressure Blood Pressure 187/162 H 165/107 H [Left Brachial artery] O2 Saturation 95 97 11/09/16 11/09/16 11/09/16 20:00 20:52 21:11 Temperature 37.2 C Heart Rate 116 H Heart Rate [ 123 H 119 H Monitoring electrodes] Respiratory 24 24 Rate Blood Pressure Blood Pressure 120/79 119/80 [Left Brachial artery] O2 Saturation 99 99 11/09/16 11/09/16 11/09/16 22:29 22:58 23:00 Temperature 37.1 C Heart Rate 107 H Heart Rate [ 111 H 105 H Monitoring electrodes] Respiratory 16 18 Rate Blood Pressure Blood Pressure 115/76 116/79 [Left Brachial artery] O2 Saturation 99 100 11/10/16 11/10/16 11/10/16 00:00 00:55 01:00 Temperature 36.8 C Heart Rate 101 H Heart Rate [ 101 H 96 Monitoring electrodes] Respiratory 16 16 Rate Blood Pressure Blood Pressure 113/77 97/71 [Left Brachial artery] O2 Saturation 100 99 11/10/16 11/10/16 11/10/16 02:00 02:47 03:03 Temperature 36.6 C Heart Rate 92 Heart Rate [ 96 92 Monitoring electrodes] Respiratory 16 16 Rate Blood Pressure Blood Pressure 99/73 106/70 [Left Brachial artery] O2 Saturation 100 100 11/10/16 11/10/16 11/10/16 04:00 04:58 05:00 Temperature Heart Rate 87 Heart Rate [ 88 85 Monitoring electrodes] Respiratory 16 16 Rate Blood Pressure Blood Pressure 102/74 104/74 [Left Brachial artery] O2 Saturation 100 100 11/10/16 11/10/16 11/10/16 06:00 06:30 07:00 Temperature Heart Rate 77 Heart Rate [ 81 65 Monitoring electrodes] Respiratory 16 17 Rate Blood Pressure Blood Pressure 107/79 119/84 H [Left Brachial artery] O2 Saturation 100 100 11/10/16 11/10/16 11/10/16 08:00 08:24 09:00 Temperature 36.2 C L 36.3 C L Heart Rate 97 Heart Rate [ 99 99 Monitoring electrodes] Respiratory 21 21 Rate Blood Pressure Blood Pressure 104/76 102/74 [Left Brachial artery] O2 Saturation 100 100 11/10/16 11/10/16 11/10/16 10:00 11:00 11:02 Temperature Heart Rate 80 Heart Rate [ 87 82 Monitoring electrodes] Respiratory 19 22 Rate Blood Pressure Blood Pressure 104/74 126/88 H [Left Brachial artery] O2 Saturation 100 99 11/10/16 11/10/16 11/10/16 12:00 13:00 13:15 Temperature 36.6 C 37.0 C Heart Rate 87 Heart Rate [ 81 86 Monitoring electrodes] Respiratory 20 20 Rate Blood Pressure Blood Pressure 100/73 110/72 [Left Brachial artery] O2 Saturation 99 100 Oxygen O2 Source Mechanical ventilator I&O (Last 24 Hrs): Intake and Output Totals x24h 11/08/16 11/09/16 11/10/16 23:59 23:59 23:59 Intake Total 500 2634 Output Total 375 637 Balance 125 1996 General: Other (Sedated) HEENT: Atraumatic Neck: No JVD Cardiovascular: No murmurs Respiratory: No respiratory distress Abdomen: Soft Extremities: No edema - Results Results: Laboratory Results WBC 5.9 x10^3/uL (4.8-10.8) 11/08/16 21:59 RBC 4.17 10^6/uL (4.20-5.40) L 11/08/16 21:59 Hgb 14.5 g/dL (12.0-16.0) 11/08/16 21:59 Hct 42.2 % (37.0-47.0) 11/08/16 21:59 MCV 101.2 fL (81.0-99.0) H 11/08/16 21:59 MCH 34.8 pg (27.0-31.0) H 11/08/16 21:59 MCHC 34.4 g/dL (32.0-36.0) 11/08/16 21:59 RDW 14.9 % (12.0-15.0) 11/08/16 21:59 Plt Count 237 10^3/uL (130-450) 11/08/16 21:59 MPV 8.4 fL (7.9-10.8) 11/08/16 21:59 Neut # 2.8 10^3/uL (1.5-6.6) 11/08/16 21:59 Lymph # 2.5 10^3/uL (1.5-3.5) 11/08/16 21:59 [place] # 0.5 10^3/uL (0.0-1.0) 11/08/16 21:59 Eos # 0.0 10^3/uL (0.0-0.7) 11/08/16 21:59 Baso # 0.0 10^3/uL (0.0-0.1) 11/08/16 21:59 Absolute Nucleated RBC 0.00 x10^3/uL 11/08/16 21:59 Nucleated RBCs 0.0 /100WBC 11/08/16 21:59 PT 12.0 secs (9.9-12.6) 11/09/16 18:29 INR 1.1 (0.8-1.2) 11/09/16 18:29 Bld Gas Analysis Time 0438 11/10/16 04:30 Sample Site RIGHT RADIAL 11/10/16 04:30 ABG pH 7.43 (7.35-7.45) 11/10/16 04:30 ABG pCO2 34 mmHg (34-45) 11/10/16 04:30 ABG pO2 104 mmHg (80-100) H 11/10/16 04:30 ABG HCO3 22.2 mmol/L (22.0-26.0) 11/10/16 04:30 ABG Total CO2 23.2 MMOL/L (21.0-29.0) 11/10/16 04:30 ABG O2 Saturation 98 % (94-98) 11/10/16 04:30 ABG Base Excess -1.4 mmol/L (-2.0-3.0) 11/10/16 04:30 Dustin Test POSITIVE 11/10/16 04:30 Respiration Rate 16 b/min 11/10/16 04:30 O2 Delivery Device VENT 11/10/16 04:30 Vent Mode SIMV 11/10/16 04:30 FiO2 40.00 11/10/16 04:30 Tidal Volume 450 mL 11/10/16 04:30 PEEP 5 cmH2O 11/10/16 04:30 Pressure Support Vent 12 cmH2O 11/10/16 04:30 Sodium 149 mmol/L (135-145) H 11/09/16 18:29 Potassium 4.0 mmol/L (3.5-5.0) 11/09/16 18:29 Chloride 116 mmol/L (101-111) H 11/09/16 18:29 Carbon Dioxide 17 mmol/L (21-32) L 11/09/16 18:29 Anion Gap 16.0 (6-13) H 11/09/16 18:29 BUN 12 mg/dL (6-20) 11/09/16 18:29 Creatinine 0.9 mg/dL (0.4-1.0) 11/09/16 18:29 Estimated GFR (MDRD) 67 (>89) L 11/09/16 18:29 Glucose 186 mg/dL (70-100) H 11/09/16 18:29 Calcium 8.5 mg/dL (8.5-10.3) 11/09/16 18:29 Magnesium 1.9 mg/dL (1.7-2.8) 11/09/16 18:29 Total Bilirubin 0.4 mg/dL (0.2-1.0) 11/08/16 21:59 AST 147 IU/L (10-42) H 11/08/16 21:59 ALT 116 IU/L (10-60) H 11/08/16 21:59 Alkaline Phosphatase 96 IU/L (42-121) 11/08/16 21:59 Total Protein 8.8 g/dL (6.7-8.2) H 11/08/16 21:59 Albumin 4.7 g/dL (3.2-5.5) 11/08/16 21:59 Globulin 4.1 g/dL (2.1-4.2) 11/08/16 21:59 Albumin/Globulin Ratio 1.1 (1.0-2.2) 11/08/16 21:59 Lipase 24 U/L (22-51) 11/08/16 21:59 TSH 2.38 uIU/mL (0.34-5.60) 11/08/16 21:59 Urine Color YELLOW 11/09/16 02:49 Urine Clarity CLEAR (CLEAR) 11/09/16 02:49 Urine pH 6.0 PH (5.0-7.5) 11/09/16 02:49 Ur Specific [place] <=1.005 (1.002-1.030) 11/09/16 02:49 Urine Protein NEGATIVE mg/dL (NEGATIVE) 11/09/16 02:49 Urine Glucose (UA) NEGATIVE mg/dL (NEGATIVE) 11/09/16 02:49 Urine Ketones NEGATIVE mg/dL (NEGATIVE) 11/09/16 02:49 Urine Occult Blood TRACE-LYSE (NEGATIVE) 11/09/16 02:49 Urine Nitrite NEGATIVE (NEGATIVE) 11/09/16 02:49 Urine Bilirubin NEGATIVE (NEGATIVE) 11/09/16 02:49 Urine Urobilinogen 0.2 (NORMAL) E.U./dL (NORMAL) 11/09/16 02:49 Ur Leukocyte Esterase NEGATIVE (NEGATIVE) 11/09/16 02:49 Ur Microscopic Review NOT INDICATED 11/09/16 02:49 Urine Culture Comments NOT INDICATED 11/09/16 02:49 Salicylates < 6.0 mg/dL 11/08/16 21:59 Urine Opiates Screen NEGATIVE (NEGATIVE) 11/09/16 02:49 Ur Oxycodone Screen NEGATIVE (NEGATIVE) 11/09/16 02:49 Urine Methadone Screen NEGATIVE (NEGATIVE) 11/09/16 02:49 Ur Propoxyphene Screen NEGATIVE (NEGATIVE) 11/09/16 02:49 Acetaminophen < 10 ug/mL (10-30) L 11/08/16 21:59 Ur Barbiturates Screen NEGATIVE (NEGATIVE) 11/09/16 02:49 Ur Tricyclics Screen NEGATIVE (NEGATIVE) 11/09/16 02:49 Ur Phencyclidine Scrn NEGATIVE (NEGATIVE) 11/09/16 02:49 Ur Amphetamine Screen NEGATIVE (NEGATIVE) 11/09/16 02:49 U Methamphetamines Scrn NEGATIVE (NEGATIVE) 11/09/16 02:49 U Benzodiazepines Scrn NEGATIVE (NEGATIVE) 11/09/16 02:49 Urine Cocaine Screen NEGATIVE (NEGATIVE) 11/09/16 02:49 U Cannabinoids Screen POSITIVE (NEGATIVE) H 11/09/16 02:49 Ethyl Alcohol 49.0 mg/dL 11/09/16 06:49
--- NOTE | 2016-11-10 15:54 | HISTORY & PHYSICAL EXAMINATION ---
DATE OF ADMISSION: 11/09/2016 REASON FOR ADMISSION: Need for ventilator, apnea secondary to high doses of sedatives which were given for delirium in the ER. This is a 45-year-old white female with a history of DVT, alcohol abuse, anxiety and depression. The patient had an admission many years ago when she was homeless and required treatment for exposure. The patient has been from her and now lives with her significant other for the past 12 to 18 months. The entire history is obtained from her significant other. He states that the patient was very upset over an argument with the ex- and the patient told him to call 911 because she "took all of her medications to try to kill herself." She was brought to the emergency room where she was also agitated from requiring restraints and was yelling nearly continuously for 10 to 11 hours. Emergency room management included various sedatives for treatment and she was eventually sedated but then became apneic and required intubation. She is currently intubated and sedated with Versed and propofol. The significant other describes that she is a very heavy alcohol drinker and that she requires medications for a DVT and possibly other diagnoses , but that the patient is not compliant and consistent with taking these medications. In the emergency room her toxicology screen showed an elevated alcohol level and positive for cannabis but no other toxicity was seen. ALLERGIES: 1. PENICILLIN. 2. ADHESIVES. MEDICATIONS AT HOME: That the ER was aware of were: 1. Propranolol. 2. Zofran. 3. Baclofen. 4. Ibuprofen. 5. Synthroid. 6. Omeprazole. REVIEW OF SYSTEMS: As above and she smokes over a pack a day, there has been possibly a prior suicide attempt with overdose, no recent travel, fever, cough, cardiac, abdominal or neurologic symptoms. PHYSICAL EXAMINATION: GENERAL: Reveals a sedated white female. She is entirely with ventilator support. VITAL SIGNS: Heart rate 135 in sinus tachycardia, blood pressure 120/70, temperature afebrile. HEENT: Unremarkable. ET tube in place and NG tube in place. NECK: Showed no JVD at 30 degree upright angle. CHEST: Had clear breath sounds diffusely. HEART: Sounds tachycardic without audible murmur. There is no heave. ABDOMEN: Soft. EXTREMITIES: Show mild swelling of the left knee anteriorly as well as a bruise and no edema, normal lower extremity pulses. LABS: Sodium 139, potassium 3.1, BUN 9, creatinine 0.8, calcium 8.9, AST 147, ALT 116, TSH 2.38. White blood cell count 5.9, hemoglobin 14.5, MCV 101, platelet count normal. INR normal. Her first blood gas showed a pH of 7.3, with PO2 82 on 40% FIO2 and a bicarb of 17.5. Urine had a pH of 6.0 with negative ketones and trace occult blood. Toxicology screen was positive for alcohol and cannabis and low levels of Tylenol and aspirin. EKG: Sinus tachycardic, nonspecific ST-T changes diffusely. IMAGING: Chest x-ray: No active pulmonary disease and ET tube in correct position. Head CT: Mild cerebral atrophy, greater than expected for age and otherwise unremarkable. IMPRESSION: 1. Ventilator necessity secondary to apnea secondary to sedatives. 2. Possible suicide attempt. 3. Agitation and delirium requiring sedation. 4. Alcohol abuse. 5. Tobacco abuse. 6. Psychiatric history and possible old suicidal attempt. 7. Sinus tachycardia. 8. History of deep vein thrombosis per significant other. PLAN: Continue with ventilator support and manage her settings based on blood gas. Continue with sedatives for the next 24 to 48 hours in order to prevent alcohol withdrawal and follow her blood alcohol level. Eventually slow decrease in sedatives to allow weaning from the ventilator and for extubation. Watch for fever and culture if she spikes. Begin hydration for the tachycardia and follow her electrolytes and CBC. Obtain a magnesium level. Banana bag will be ordered for supplementation given her history of alcohol abuse. Topical Nicoderm patch will be started given her history of tobacco abuse. Bowel care and oral care during her ventilation will be ordered. Begin H2 blockers to prevent stress ulceration. JOB #: [id number] EXT JOB #:[id number] LINDSAY
[2016-11-10] MEDS: POLYETHYLENE GLYCOL 3350 17 GM PACKET PO SCH (17:19)
[2016-11-10] MEDS: SODIUM CHLORIDE FLUSH 0.9% 10 ML SYRINGE IVP PRN (17:57)
[2016-11-11] MEDS: PROPOFOL 1000 MG/100 ML 100 ML IV SCH ×3 (01:30→20:44)
[2016-11-11] MEDS: SODIUM CHLORIDE 0.9% 1,000 ML IV SCH (03:39)
[2016-11-11] MEDS: MIDAZOLAM DRIP 100 ML IV SCH ×2 (03:50→19:37)
[2016-11-11 04:26] LABS: BASOPHILS # (AUTO) 0.1 10^3/uL (0.0-0.1); BASOPHILS % (AUTO) 0.6 %; EOSINOPHILS % (AUTO) 0.4 %; HCT - HEMATOCRIT 32.5 % (37.0-47.0); LYMPHOCYTES # (AUTO) 1.8 10^3/uL (1.5-3.5); LYMPHOCYTES % (AUTO) 22.8 %; MEAN CORPUSCULAR HEMOGLOBIN 34.8 pg (27.0-31.0); MEAN CORPUSCULAR HGB CONC 33.8 g/dL (32.0-36.0); MEAN PLATELET VOLUME 9.6 fL (7.9-10.8); MONOCYTES # (AUTO) 0.2 10^3/uL (0.0-1.0); MONOCYTES % (AUTO) 2.9 %; NEUTROPHILS # (AUTO) 5.7 10^3/uL (1.5-6.6); NEUTROPHILS % (AUTO) 73.3 %; RED BLOOD COUNT 3.16 10^6/uL (4.20-5.40); RED CELL DISTRIBUTION WIDTH 15.4 % (12.0-15.0); UNCORRECTED WHITE BLOOD COUNT 7.8 x10^3/uL; WHITE BLOOD COUNT 7.8 x10^3/uL (4.8-10.8)
[2016-11-11 04:49] LABS: BUN - BLOOD UREA NITROGEN 6 mg/dL (6-20); CARBON DIOXIDE - CO2 20 mmol/L (21-32); CHLORIDE 119 mmol/L (101-111); CREATININE 0.4 mg/dL (0.4-1.0); GFR - MDRD 171 (>89); GLUCOSE 83 mg/dL (70-100); POTASSIUM 2.8 mmol/L (3.5-5.0); SODIUM 147 mmol/L (135-145)
[2016-11-11 04:54] LABS: VBG PH 7.498 (7.31-7.41)
[2016-11-11 04:55] LABS: CALCIUM, IONIZED 1.05 mmol/L (1.15-1.33)
[2016-11-11] MEDS: SODIUM CHLORIDE FLUSH 0.9% 10 ML SYRINGE IVP SCH ×3 (05:05→20:42)
[2016-11-11 05:16] LABS: ABG PH 7.46 (7.35-7.45)
[2016-11-11 05:17] LABS: ABG HCO3 22.2 mmol/L (22.0-26.0); ABG OXYGEN SATURATION 96 % (94-98); ABG PCO2 32 mmHg (34-45); ABG PO2 87 mmHg (80-100); ABG TCO2 23.2 MMOL/L (21.0-29.0); ALLEN TEST POSITIVE
[2016-11-11 05:18] LABS: ABG MODE OF VENTILATION SIMV; ABG O2 DEVICE VENTILATOR; ABG PEAK END EXPIRATORY PRESSU 5 cmH2O
[2016-11-11 05:19] LABS: ABG RESPIRATORY RATE 12 b/min
[2016-11-11] MEDS: POTASSIUM CHLORIDE 20 MEQ/15 ML UDC PO SCH ×2 (05:57→10:54)
[2016-11-11] MEDS ORDERED: POTASSIUM CHLOR 10 MEQ/100 ML 100 ML IV SCH (06:00)
[2016-11-11] MEDS: MULTIVITAMIN 10 ML, THIAMINE INJ 100 MG, FOLIC ACID INJ 1 MG in D5.45NS W/20 MEQ KCL 1,... IV SCH (08:45)
[2016-11-11] MEDS: NICOTINE 14 MG PATCH TOP SCH (09:24)
[2016-11-11] MEDS ORDERED: D5.45NS W/20 MEQ KCL 1,000 ML IV ONE (10:40)
[2016-11-11 10:49] LABS: MAGNESIUM 1.6 mg/dL (1.7-2.8); PHOSPHORUS 1.7 mg/dL (2.5-4.6)
[2016-11-11] MEDS: CHLORHEXIDINE GLUCONATE 15 ML UDC PO SCH ×2 (10:53→20:43)
[2016-11-11] MEDS: PANTOPRAZOLE 40 MG VIAL IVP SCH ×2 (10:54→20:42)
[2016-11-11] MEDS: POLYETHYLENE GLYCOL 3350 17 GM PACKET PO SCH (10:56)
[2016-11-11] MEDS: D5.45NS W/20 MEQ KCL 1,000 ML IV SCH (12:49)
[2016-11-11] MEDS: CALCIUM CITRATE 250 MG TABLET PO SCH ×3 (12:56→20:43)
[2016-11-11] MEDS: MAGNESIUM OXIDE 400 MG TABLET PO SCH ×2 (13:00→17:23)
[2016-11-11] MEDS: NEUTRA-PHOS 250 MG TABLET PO SCH ×2 (14:38→16:32)
[2016-11-11] MEDS: CARBOXYMETHYLCELLULOSE OPHTH DROPS EACHEYE PRN (15:09)
[2016-11-11] MEDS ORDERED: METOPROLOL 5 MG/5 ML VIAL IVP SCH (18:00)
--- NOTE | 2016-11-11 18:14 | XRAY Report ---
EXAM: CHEST RADIOGRAPHY EXAM DATE: 11/11/2016 05:52 PM. CLINICAL HISTORY: Fever. COMPARISON: 11/09/2016. TECHNIQUE: 1 view. FINDINGS: Lungs/Pleura: Mild patchy left basilar airspace opacity. No pleural effusion or pneumothorax. Mediastinum: Normal cardiomediastinal contour. Other: The patient remains intubated. The endotracheal tube terminates approximately 1.5 cm above the quang. An enteric tube courses below the diaphragm; tip is not seen on this view. IMPRESSION: Mild patchy left basilar airspace opacity, which could represent atelectasis, aspiration, or infection. [facility] Referring Provider Line: [phone] SITE ID: [id number]
--- NOTE | 2016-11-11 18:46 | PROVIDER PROGRESS NOTE ---
Assessment/Plan - Problem List (1) Delirium Assessment/Plan: Due to fever and tachycardia, will not aggressively wean sedation today. (2) Alcohol abuse Assessment/Plan: Watching for DTs, despite sedation. (3) DVT prophylaxis Assessment/Plan: Pt on prophylaxis. - Current Meds Current Meds: Current Medications Generic Name Dose Route Start Last Admin Trade Name Freq PRN Reason Stop Dose Admin Calcium Citrate 500 mg 11/11/16 13:00 11/11/16 17:22 PO 11/12/16 09:01 500 mg QID VAIBHAV Administration Protocol Carboxymethylcellulose 1 drops 11/11/16 11:34 11/11/16 15:09 Refresh 1% Ophth Drops EACHEYE 1 applic PRN PRN Administration Dry Eye Chlorhexidine Gluconate 15 ml 11/09/16 21:00 11/11/16 10:53 Peridex PO 15 ml BID VAIBHAV Administration Midazolam HCl 100 mls @ 4.173 mls/hr 11/09/16 16:00 11/11/16 03:50 Versed Drip IV 11 mls/hr .[id number] VAIBHAV Administration Protocol 0.04 MG/KG/HR Propofol 100 mls @ 1.565 mls/hr 11/09/16 16:00 11/11/16 17:35 Diprivan IV 75 mcg/kg/min TITR VAIBHAV Titration Protocol 5 MCG/KG/MIN Multivitamins 10 ml/ Thiamine 1,011.2 mls @ 100 mls/hr 11/10/16 09:00 11/11/16 08:45 HCl 100 mg/ Folic Acid 1 mg/ IV 100 mls/hr Potassium Chloride/Dextrose/ DAILY VAIBHAV Administration Sod Cl Potassium Chloride/Dextrose/Sod Cl 1,000 mls @ 80 mls/hr 11/11/16 10:00 12:49 D5.45ns W/20 Meq Kcl IV 80 mls/hr .[id number] VAIBHAV Administration Metoprolol Tartrate 3 mg 11/11/16 18:00 11/11/16 17:34 Lopressor Inj IVP 11/11/16 23:59 3 mg ONCE VAIBHAV Administration Nicotine 1 patch 11/10/16 13:00 11/11/16 09:24 Nicoderm TOP 1 patch DAILY VAIBHAV Administration Pantoprazole Sodium 40 mg 11/09/16 21:00 11/11/16 10:54 Protonix IVP 40 mg BID VAIBHAV Administration Polyethylene Glycol 17 gm 11/10/16 09:00 11/11/16 10:56 Miralax PO 17 gm DAILY VAIBHAV Administration Sodium Chloride 10 ml 11/09/16 15:52 11/10/16 17:57 Normal Saline Flush 0.9% IVP 10 ml PRN PRN Administration NEEDED PER PROVIDER ORDERS Sodium Chloride 10 ml 11/09/16 22:00 11/11/16 14:39 Normal Saline Flush 0.9% IVP 10 ml Q8HR VAIBHAV Administration - Lab Result Fish Bone Diagrams: 11/11/16 03:51 11/11/16 10:25 - Additional Planning My Orders: My Active Orders 11/10/16 21:40 ED Restraint - Safety ONCE 11/11/16 Blood Culture [CULTURE, BLOOD #1] [] Stat Blood Culture [CULTURE, BLOOD #2] [] Stat Wound Consult MAC [MAC] Routine 11/11/16 10:00 D5.45ns W/20 Meq KCl 1,000 ml IV 80 mls/hr 11/11/16 11:34 Carboxymethylcellulose 1% Opht [Refresh 1% Ophth Drops] 1 drops EACHEYE PRN PRN 11/11/16 13:00 Calcium Citrate 500 mg PO QID 11/11/16 18:00 Metoprolol Inj [Lopressor Inj] 3 mg IVP ONCE 11/12/16 05:00 POTASSIUM [CHEM] Timed Subjective - Subjective Nursing Reports: Other (Sedated, on ventillator. Today Pt developed a fever with increase in HR.) Objective Vital Signs: Vital Signs - 24 hr 11/10/16 11/10/16 11/10/16 19:00 19:02 19:18 Temperature 37.2 C Heart Rate 114 H Heart Rate [ 105 H Monitoring electrodes] Respiratory 28 H Rate Blood Pressure Blood Pressure 133/89 H [Left Brachial artery] O2 Saturation 98 11/10/16 11/10/16 11/10/16 20:00 21:00 21:05 Temperature 36.4 C L Heart Rate 103 H Heart Rate [ 105 H 101 H Monitoring electrodes] Respiratory 28 H 26 H Rate Blood Pressure Blood Pressure 136/93 H 120/82 H [Left Brachial artery] O2 Saturation 100 99 11/10/16 11/10/16 11/10/16 22:00 23:00 23:04 Temperature 36.8 C 36.8 C Heart Rate 94 Heart Rate [ 91 94 Monitoring electrodes] Respiratory 23 22 Rate Blood Pressure Blood Pressure 111/81 H 109/76 [Left Brachial artery] O2 Saturation 97 97 11/11/16 11/11/16 11/11/16 00:00 01:00 01:19 Temperature 36.9 C Heart Rate 83 Heart Rate [ 87 85 Monitoring electrodes] Respiratory 20 21 Rate Blood Pressure Blood Pressure 105/73 103/74 [Left Brachial artery] O2 Saturation 97 98 11/11/16 11/11/16 11/11/16 02:00 03:00 03:10 Temperature Heart Rate 77 Heart Rate [ 81 79 Monitoring electrodes] Respiratory 18 20 Rate Blood Pressure Blood Pressure 103/74 100/73 [Left Brachial artery] O2 Saturation 98 98 11/11/16 11/11/16 11/11/16 04:00 05:00 05:25 Temperature 36.6 C Heart Rate 72 Heart Rate [ 74 71 Monitoring electrodes] Respiratory 19 15 Rate Blood Pressure Blood Pressure 97/72 98/72 [Left Brachial artery] O2 Saturation 99 100 11/11/16 11/11/16 11/11/16 06:00 07:00 07:30 Temperature Heart Rate 722 H Heart Rate [ 70 72 Monitoring electrodes] Respiratory 19 20 Rate Blood Pressure Blood Pressure 101/74 119/89 H [Left Brachial artery] O2 Saturation 100 100 11/11/16 11/11/16 11/11/16 08:00 09:00 09:15 Temperature 36.4 C L 35.8 C L Heart Rate 75 Heart Rate [ 74 84 Monitoring electrodes] Respiratory 22 24 Rate Blood Pressure Blood Pressure 120/86 H 127/95 H [Left Brachial artery] O2 Saturation 97 98 11/11/16 11/11/16 11/11/16 10:00 11:00 11:30 Temperature 36.6 C 36.0 C L Heart Rate 86 Heart Rate [ 84 82 Monitoring electrodes] Respiratory 24 24 Rate Blood Pressure Blood Pressure 121/89 H 120/87 H [Left Brachial artery] O2 Saturation 99 95 11/11/16 11/11/16 11/11/16 12:00 13:00 13:15 Temperature 36.3 C L 36.4 C L Heart Rate 103 H Heart Rate [ 87 92 Monitoring electrodes] Respiratory 27 H 34 H Rate Blood Pressure Blood Pressure 114/82 H 116/85 H [Left Brachial artery] O2 Saturation 99 98 11/11/16 11/11/16 11/11/16 14:00 15:00 15:54 Temperature 36.2 C L 37.0 C 37.8 C H Heart Rate 104 H Heart Rate [ 94 101 H 107 H Monitoring electrodes] Respiratory 28 H 27 H 26 H Rate Blood Pressure Blood Pressure 127/88 H 119/79 119/79 [Left Brachial artery] O2 Saturation 96 97 97 11/11/16 11/11/16 11/11/16 16:57 17:00 17:34 Temperature 38 C H Heart Rate 112 H Heart Rate [ 108 H Monitoring electrodes] Respiratory 32 H Rate Blood Pressure 126/81 H Blood Pressure 126/81 H [Left Brachial artery] O2 Saturation 98 11/11/16 18:00 Temperature 38.2 C H Heart Rate Heart Rate [ 98 Monitoring electrodes] Respiratory 29 H Rate Blood Pressure Blood Pressure 123/85 H [Left Brachial artery] O2 Saturation 94 Oxygen O2 Source Mechanical ventilator I&O (Last 24 Hrs): Intake and Output Totals x24h 11/09/16 11/10/16 11/11/16 23:59 23:59 23:59 Intake Total 500 4864 3497 Output Total 375 1581 1656 Balance 125 3283 1841 General: Other (Sedated) HEENT: Mucous membr. moist/pink Neck: Supple Cardiovascular: Regular rate (Tachycardic) Extremities: No edema - Results Results: Laboratory Results WBC 7.8 x10^3/uL (4.8-10.8) 11/11/16 03:51 RBC 3.16 10^6/uL (4.20-5.40) L 11/11/16 03:51 Hgb 11.0 g/dL (12.0-16.0) L 11/11/16 03:51 Hct 32.5 % (37.0-47.0) L 11/11/16 03:51 MCV 103.0 fL (81.0-99.0) H 11/11/16 03:51 MCH 34.8 pg (27.0-31.0) H 11/11/16 03:51 MCHC 33.8 g/dL (32.0-36.0) 11/11/16 03:51 RDW 15.4 % (12.0-15.0) H 11/11/16 03:51 Plt Count 101 10^3/uL (130-450) L 11/11/16 03:51 MPV 9.6 fL (7.9-10.8) 11/11/16 03:51 Neut # 5.7 10^3/uL (1.5-6.6) 11/11/16 03:51 Lymph # 1.8 10^3/uL (1.5-3.5) 11/11/16 03:51 [place] # 0.2 10^3/uL (0.0-1.0) 11/11/16 03:51 Eos # 0.0 10^3/uL (0.0-0.7) 11/11/16 03:51 Baso # 0.1 10^3/uL (0.0-0.1) 11/11/16 03:51 Absolute Nucleated RBC 0.00 x10^3/uL 11/11/16 03:51 Nucleated RBCs 0.0 /100WBC 11/11/16 03:51 PT 12.0 secs (9.9-12.6) 11/09/16 18:29 INR 1.1 (0.8-1.2) 11/09/16 18:29 Bld Gas Analysis Time 0511/11/16 05:15 Sample Site UNK 11/11/16 05:15 ABG pH 7.46 (7.35-7.45) H 11/11/16 05:15 ABG pCO2 32 mmHg (34-45) L 11/11/16 05:15 ABG pO2 87 mmHg (80-100) 11/11/16 05:15 ABG HCO3 22.2 mmol/L (22.0-26.0) 11/11/16 05:15 ABG Total CO2 23.2 MMOL/L (21.0-29.0) 11/11/16 05:15 ABG O2 Saturation 96 % (94-98) 11/11/16 05:15 ABG Base Excess -1.0 mmol/L (-2.0-3.0) 11/11/16 05:15 Dustin Test POSITIVE 11/11/16 05:15 VBG pH 7.498 (7.31-7.41) H 11/11/16 03:51 Ionized Calcium 1.05 mmol/L (1.15-1.33) L 11/11/16 03:51 Respiration Rate 12 b/min 11/11/16 05:15 O2 Delivery Device VENTILATOR 11/11/16 05:15 Vent Mode SIMV 11/11/16 05:15 FiO2 30.00 11/11/16 05:15 Tidal Volume 450 mL 11/11/16 05:15 PEEP 5 cmH2O 11/11/16 05:15 Pressure Support Vent 12 cmH2O 11/10/16 04:30 Sodium 147 mmol/L (135-145) H 11/11/16 03:51 Potassium 3.0 mmol/L (3.5-5.0) L 11/11/16 10:25 Chloride 119 mmol/L (101-111) H 11/11/16 03:51 Carbon Dioxide 20 mmol/L (21-32) L 11/11/16 03:51 Anion Gap 7.0 (6-13) 11/11/16 03:51 BUN 6 mg/dL (6-20) 11/11/16 03:51 Creatinine 0.4 mg/dL (0.4-1.0) 11/11/16 03:51 Estimated GFR (MDRD) 171 (>89) 11/11/16 03:51 Glucose 83 mg/dL (70-100) 11/11/16 03:51 Calcium 8.0 mg/dL (8.5-10.3) L 11/11/16 03:51 Ionized Calcium YES 11/11/16 03:51 Phosphorus 1.7 mg/dL (2.5-4.6) L 11/11/16 10:25 Magnesium 1.6 mg/dL (1.7-2.8) L 11/11/16 10:25 Total Bilirubin 0.4 mg/dL (0.2-1.0) 11/08/16 21:59 AST 147 IU/L (10-42) H 11/08/16 21:59 ALT 116 IU/L (10-60) H 11/08/16 21:59 Alkaline Phosphatase 96 IU/L (42-121) 11/08/16 21:59 Total Protein 8.8 g/dL (6.7-8.2) H 11/08/16 21:59 Albumin 2.6 g/dL (3.2-5.5) L 11/11/16 10:25 Globulin 4.1 g/dL (2.1-4.2) 11/08/16 21:59 Albumin/Globulin Ratio 1.1 (1.0-2.2) 11/08/16 21:59 Lipase 24 U/L (22-51) 11/08/16 21:59 TSH 2.38 uIU/mL (0.34-5.60) 11/08/16 21:59 Urine Color YELLOW 11/09/16 02:49 Urine Clarity CLEAR (CLEAR) 11/09/16 02:49 Urine pH 6.0 PH (5.0-7.5) 11/09/16 02:49 Ur Specific [place] <=1.005 (1.002-1.030) 11/09/16 02:49 Urine Protein NEGATIVE mg/dL (NEGATIVE) 11/09/16 02:49 Urine Glucose (UA) NEGATIVE mg/dL (NEGATIVE) 11/09/16 02:49 Urine Ketones NEGATIVE mg/dL (NEGATIVE) 11/09/16 02:49 Urine Occult Blood TRACE-LYSE (NEGATIVE) 11/09/16 02:49 Urine Nitrite NEGATIVE (NEGATIVE) 11/09/16 02:49 Urine Bilirubin NEGATIVE (NEGATIVE) 11/09/16 02:49 Urine Urobilinogen 0.2 (NORMAL) E.U./dL (NORMAL) 11/09/16 02:49 Ur Leukocyte Esterase NEGATIVE (NEGATIVE) 11/09/16 02:49 Ur Microscopic Review NOT INDICATED 11/09/16 02:49 Urine Culture Comments NOT INDICATED 11/09/16 02:49 Salicylates < 6.0 mg/dL 11/08/16 21:59 Urine Opiates Screen NEGATIVE (NEGATIVE) 11/09/16 02:49 Ur Oxycodone Screen NEGATIVE (NEGATIVE) 11/09/16 02:49 Urine Methadone Screen NEGATIVE (NEGATIVE) 11/09/16 02:49 Ur Propoxyphene Screen NEGATIVE (NEGATIVE) 11/09/16 02:49 Acetaminophen < 10 ug/mL (10-30) L 11/08/16 21:59 Ur Barbiturates Screen NEGATIVE (NEGATIVE) 11/09/16 02:49 Ur Tricyclics Screen NEGATIVE (NEGATIVE) 11/09/16 02:49 Ur Phencyclidine Scrn NEGATIVE (NEGATIVE) 11/09/16 02:49 Ur Amphetamine Screen NEGATIVE (NEGATIVE) 11/09/16 02:49 U Methamphetamines Scrn NEGATIVE (NEGATIVE) 11/09/16 02:49 U Benzodiazepines Scrn NEGATIVE (NEGATIVE) 11/09/16 02:49 Urine Cocaine Screen NEGATIVE (NEGATIVE) 11/09/16 02:49 U Cannabinoids Screen POSITIVE (NEGATIVE) H 11/09/16 02:49 Ethyl Alcohol 49.0 mg/dL 11/09/16 06:49
--- NOTE | 2016-11-11 19:52 | PROVIDER PROGRESS NOTE ---
Hospitalist Cross-cover Note - Cross-Cover Note Cross-Cover Note: Pt with fever, tachycardia and secretions. CXR consistent with L basilar airspace opacity. While pt has polysubstance abuse, she has no known risk factors for MDR organisms, and MRSA screen has been neg x2 PCN reaction is itching, so will use cephalosporin as less likely to have reaction. Will avoid levofloxacin due to risk of Qt prolongation with propofol. - obtain sputum sample for culture now - start cefepime 2g iv q8hr - respiratory care / pulmonary toilet as tolerated
[2016-11-11] MEDS: CEFEPIME 2 GM in SODIUM CHLORIDE 0.9% MINIBAG 100 ML IV SCH ×2 (20:41→21:30)
[2016-11-11] MEDS: SODIUM CHLORIDE FLUSH 0.9% 10 ML SYRINGE IVP PRN (20:42)
[2016-11-11] MEDS ORDERED: ACETAMINOPHEN 325 MG TABLET PO PRN (23:20)
[2016-11-11] MEDS: ACETAMINOPHEN 160 MG/5 ML SUSP UDC PO PRN (23:34)
[2016-11-12] MEDS ORDERED: IPRATROPIUM/ALBUTEROL 3 ML NEB INH PRN (00:03)
[2016-11-12] MEDS ORDERED: [UNRECOGNIZED DRUG - OTHER] IV ONE (00:04)
[2016-11-12] MEDS: D5.45NS W/20 MEQ KCL 1,000 ML IV SCH ×2 (00:04→12:44)
[2016-11-12] MEDS: MORPHINE 2 MG/ML CARPUJECT IVP PRN ×2 (00:19→23:18)
[2016-11-12] MEDS: CARBOXYMETHYLCELLULOSE OPHTH DROPS EACHEYE PRN (00:34)
[2016-11-12] MEDS ORDERED: ALBUTEROL NEB 2.5 MG/3 ML INH PRN (00:40)
[2016-11-12] MEDS: PROPOFOL 1000 MG/100 ML 100 ML IV SCH ×2 (00:58→04:21)
[2016-11-12 03:17] LABS: ABG BASE EXCESS 0.9 mmol/L (-2.0-3.0); ABG HCO3 24.5 mmol/L (22.0-26.0); ABG OXYGEN SATURATION 93 % (94-98); ABG PCO2 36 mmHg (34-45); ABG PH 7.46 (7.35-7.45); ABG PO2 66 mmHg (80-100); ABG TCO2 25.6 MMOL/L (21.0-29.0)
[2016-11-12 03:18] LABS: ABG MODE OF VENTILATION ACCESSED/CONTROL; ABG O2 DEVICE VENTILATOR; ABG RESPIRATORY RATE 16 b/min; ABG SATURATION PULSE OXIMETRY% 92 %; ABG SITE OF DRAW RIGHT RADIAL; ALLEN TEST POSITIVE
[2016-11-12 03:19] LABS: ABG PEAK END EXPIRATORY PRESSU 5 cmH2O; ABG PRESSURE SUPPORT VENT 0 cmH2O
[2016-11-12] MEDS: SODIUM CHLORIDE FLUSH 0.9% 10 ML SYRINGE IVP SCH ×3 (03:53→20:30)
[2016-11-12] MEDS: CEFEPIME 2 GM in SODIUM CHLORIDE 0.9% MINIBAG 100 ML IV SCH ×3 (03:53→20:24)
[2016-11-12] MEDS: MIDAZOLAM DRIP 100 ML IV SCH ×2 (03:58→20:37)
[2016-11-12 05:50] LABS: MAGNESIUM 1.4 mg/dL (1.7-2.8); PHOSPHORUS 2.7 mg/dL (2.5-4.6)
[2016-11-12 05:59] LABS: CALCIUM 7.9 mg/dL (8.5-10.3)
[2016-11-12 06:04] LABS: CALCIUM, IONIZED 1.1 mmol/L (1.15-1.33); VBG PH 7.394 (7.31-7.41)
[2016-11-12] MEDS: MAGNESIUM OXIDE 400 MG TABLET PO SCH ×2 (06:53→13:24)
[2016-11-12] MEDS ORDERED: POTASSIUM CHLORIDE 20 MEQ/15 ML UDC PO ONE (07:00)
[2016-11-12] MEDS: MULTIVITAMIN 10 ML, THIAMINE INJ 100 MG, FOLIC ACID INJ 1 MG in D5.45NS W/20 MEQ KCL 1,... IV SCH (08:50)
[2016-11-12] MEDS: NICOTINE 14 MG PATCH TOP SCH (09:19)
[2016-11-12] MEDS: MINERAL OIL/PETROLAT OPHTH OINT EACHEYE PRN ×2 (09:19→13:25)
[2016-11-12] MEDS: POLYETHYLENE GLYCOL 3350 17 GM PACKET PO SCH (09:19)
[2016-11-12] MEDS: PANTOPRAZOLE 40 MG VIAL IVP SCH ×2 (09:20→20:29)
[2016-11-12] MEDS ORDERED: SODIUM CHLORIDE INHALATION 3 ML NEB ONE (09:29)
[2016-11-12] MEDS: CHLORHEXIDINE GLUCONATE 15 ML UDC PO SCH ×2 (10:44→20:29)
[2016-11-12] MEDS ORDERED: D5.45NS W/20 MEQ KCL 1,000 ML IV ONE (12:42)
--- NOTE | 2016-11-12 17:24 | PROVIDER PROGRESS NOTE ---
Assessment/Plan - Problem List (1) Delirium Assessment/Plan: Weaning off sedatives was not undertaken yesterday, when a pneumonia was diagnosed. Continue ventilator support today, no weaning. (2) Alcohol abuse Assessment/Plan: No further tachycardia, since defervesced, therfore tachycardia was probably not from alcohol withdrawl (3) DVT prophylaxis Assessment/Plan: Pt on prophylaxis. (4) Pneumonia Qualifiers: Laterality: left Assessment/Plan: Pt now on antibiotics and has defervesced and tachycardia resolved. Will continue iv antibiotics and hold on any weaning from ventilator. - Current Meds Current Meds: Current Medications Generic Name Dose Route Start Last Admin Trade Name Freq PRN Reason Stop Dose Admin Acetaminophen 650 mg 11/11/16 23:27 11/11/16 23:34 Tylenol PO 650 mg Q8HR PRN Administration Pain or Fever > 38C (100.4F) Carboxymethylcellulose 1 drops 11/11/16 11:34 11/12/16 00:34 Refresh 1% Ophth Drops EACHEYE 2 applic PRN PRN Administration Dry Eye Chlorhexidine Gluconate 15 ml 11/09/16 21:00 11/12/16 10:44 Peridex PO 15 ml BID VAIBHAV Administration Midazolam HCl 100 mls @ 4.173 mls/hr 11/09/16 16:00 11/12/16 03:58 Versed Drip IV 11 mls/hr .[id number] VAIBHAV Administration Protocol 0.04 MG/KG/HR Propofol 100 mls @ 1.565 mls/hr 11/09/16 16:00 11/12/16 04:21 Diprivan IV 24.75 mls/hr TITR VAIBHAV Administration Protocol 5 MCG/KG/MIN Multivitamins 10 ml/ Thiamine 1,011.2 mls @ 100 mls/hr 11/10/16 09:00 11/12/16 08:50 HCl 100 mg/ Folic Acid 1 mg/ IV 100 mls/hr Potassium Chloride/Dextrose/ DAILY VAIBHAV Administration Sod Cl Potassium Chloride/Dextrose/Sod Cl 1,000 mls @ 80 mls/hr 11/11/16 10:00 12:44 D5.45ns W/20 Meq Kcl IV 80 mls/hr .[id number] VAIBHAV Administration Cefepime HCl 2 gm/ Sodium 100 mls @ 200 mls/hr 11/11/16 20:00 11/12/16 11:16 Chloride IV 200 mls/hr Q8H VAIBHAV Administration Morphine Sulfate 2 mg 11/12/16 00:04 11/12/16 00:19 Morphine IVP 2 mg Q2HR PRN Administration PAIN Multi-Ingred Cream/Lotion/Oil/Oint 1 applic 11/12/16 04:01 11/12/16 13:25 Lubrifresh Pm Ophth Oint EACHEYE 1 applic QPM PRN Administration Dry Eye Nicotine 1 patch 11/10/16 13:00 11/12/16 09:19 Nicoderm TOP 1 patch DAILY VAIBHAV Administration Pantoprazole Sodium 40 mg 11/09/16 21:00 11/12/16 09:20 Protonix IVP 40 mg BID VAIBHAV Administration Polyethylene Glycol 17 gm 11/10/16 09:00 11/12/16 09:19 Miralax PO 17 gm DAILY VAIBHAV Administration Sodium Chloride 10 ml 11/09/16 15:52 11/11/16 20:42 Normal Saline Flush 0.9% IVP 20 ml PRN PRN Administration NEEDED PER PROVIDER ORDERS Sodium Chloride 10 ml 11/09/16 22:00 11/12/16 13:24 Normal Saline Flush 0.9% IVP 10 ml Q8HR VAIBHAV Administration - Lab Result Fish Bone Diagrams: 11/11/16 03:51 11/12/16 05:04 - Additional Planning My Orders: My Active Orders 11/11/16 19:56 Blood Culture [CULTURE, BLOOD #1] [RM] Stat 11/11/16 21:15 Blood Culture [CULTURE, BLOOD #2] [RM] Stat 11/12/16 00:13 Airway Suctioning [Suction] [RC] PRN 11/12/16 04:01 Mineral Oil/Petrola Ophth Oint [Lubrifresh Pm Ophth Oint] 1 applic EACHEYE QPM PRN 11/13/16 05:00 MAGNESIUM [CHEM] DAILYLAB POTASSIUM [CHEM] DAILYLAB Subjective - Subjective Patient Reports: Other (Pt still intubated and sedated) Nursing Reports: Sedated Objective Vital Signs: Vital Signs - 24 hr 11/11/16 11/11/16 11/11/16 17:34 18:00 18:53 Temperature 38.2 C H 38.3 C H Heart Rate Heart Rate [ 98 105 H Monitoring electrodes] Respiratory 29 H 27 H Rate Blood Pressure 126/81 H Blood Pressure 123/85 H 115/71 [Left Brachial artery] O2 Saturation 94 95 11/11/16 11/11/16 11/11/16 19:40 19:41 20:00 Temperature 38.4 C H Heart Rate 119 H Heart Rate [ 117 H Monitoring electrodes] Respiratory 31 H Rate Blood Pressure Blood Pressure 127/75 [Left Brachial artery] O2 Saturation 91 L 11/11/16 11/11/16 11/11/16 21:00 21:45 22:00 Temperature 37.4 C 37.7 C H Heart Rate 119 H Heart Rate [ 87 123 H Monitoring electrodes] Respiratory 32 H 31 H Rate Blood Pressure Blood Pressure 119/73 118/69 [Left Brachial artery] O2 Saturation 95 92 11/11/16 11/11/16 11/12/16 22:39 23:00 00:00 Temperature 37.7 C H 37.4 C 38.3 C H Heart Rate Heart Rate [ 119 H 121 H Monitoring electrodes] Respiratory 30 H 26 H Rate Blood Pressure Blood Pressure 121/73 116/74 [Left Brachial artery] O2 Saturation 93 91 L 11/12/16 11/12/16 11/12/16 00:10 00:20 01:00 Temperature 37.7 C H Heart Rate 126 H 118 H Heart Rate [ 108 H Monitoring electrodes] Respiratory 19 Rate Blood Pressure Blood Pressure 101/65 [Left Brachial artery] O2 Saturation 92 11/12/16 11/12/16 11/12/16 02:00 03:00 03:40 Temperature 37.0 C 36.5 C Heart Rate 84 Heart Rate [ 100 85 Monitoring electrodes] Respiratory 19 17 Rate Blood Pressure Blood Pressure 99/63 94/60 [Left Brachial artery] O2 Saturation 93 98 11/12/16 11/12/16 11/12/16 04:00 05:00 06:00 Temperature 36.1 C L 36.6 C Heart Rate Heart Rate [ 90 84 94 Monitoring electrodes] Respiratory 19 17 18 Rate Blood Pressure Blood Pressure 93/61 102/63 94/60 [Left Brachial artery] O2 Saturation 95 99 94 11/12/16 11/12/16 11/12/16 06:59 07:53 08:00 Temperature 36.6 C 36.9 C Heart Rate 17 L Heart Rate [ 81 84 Monitoring electrodes] Respiratory 16 18 Rate Blood Pressure Blood Pressure 101/69 100/66 [Left Brachial artery] O2 Saturation 96 97 11/12/16 11/12/16 11/12/16 09:00 09:15 10:00 Temperature 35.9 C L 36.3 C L Heart Rate 83 Heart Rate [ 83 90 Monitoring electrodes] Respiratory 17 20 Rate Blood Pressure Blood Pressure 100/66 99/66 [Left Brachial artery] O2 Saturation 96 94 11/12/16 11/12/16 11/12/16 11:00 11:15 12:00 Temperature 36.9 C 36.4 C L Heart Rate 89 Heart Rate [ 85 87 Monitoring electrodes] Respiratory 16 17 Rate Blood Pressure Blood Pressure 95/64 93/59 L [Left Brachial artery] O2 Saturation 97 95 11/12/16 11/12/16 11/12/16 13:00 13:30 14:00 Temperature 36.1 C L 37.6 C H Heart Rate 84 Heart Rate [ 82 84 Monitoring electrodes] Respiratory 16 17 Rate Blood Pressure Blood Pressure 99/66 100/63 [Left Brachial artery] O2 Saturation 97 95 11/12/16 11/12/16 11/12/16 15:00 15:30 16:00 Temperature 37.7 C H 36.7 C Heart Rate 85 Heart Rate [ 87 86 Monitoring electrodes] Respiratory 17 19 Rate Blood Pressure Blood Pressure 102/67 110/72 [Left Brachial artery] O2 Saturation 97 98 11/12/16 16:57 Temperature 36.9 C Heart Rate Heart Rate [ 93 Monitoring electrodes] Respiratory 16 Rate Blood Pressure Blood Pressure 109/69 [Left Brachial artery] O2 Saturation 97 Oxygen O2 Source Mechanical ventilator I&O (Last 24 Hrs): Intake and Output Totals x24h 11/10/16 11/11/16 11/12/16 23:59 23:59 23:59 Intake Total 4864 4517 3377 Output Total 1581 2686 1868 Balance 3283 1831 1509 General: Other (sedated) HEENT: Mucous membr. moist/pink Neck: Supple Cardiovascular: No murmurs Respiratory: Other (on vent) Abdomen: Soft Extremities: No edema - Results Results: Laboratory Results WBC 7.8 x10^3/uL (4.8-10.8) 11/11/16 03:51 RBC 3.16 10^6/uL (4.20-5.40) L 11/11/16 03:51 Hgb 11.0 g/dL (12.0-16.0) L 11/11/16 03:51 Hct 32.5 % (37.0-47.0) L 11/11/16 03:51 MCV 103.0 fL (81.0-99.0) H 11/11/16 03:51 MCH 34.8 pg (27.0-31.0) H 11/11/16 03:51 MCHC 33.8 g/dL (32.0-36.0) 11/11/16 03:51 RDW 15.4 % (12.0-15.0) H 11/11/16 03:51 Plt Count 101 10^3/uL (130-450) L 11/11/16 03:51 MPV 9.6 fL (7.9-10.8) 11/11/16 03:51 Neut # 5.7 10^3/uL (1.5-6.6) 11/11/16 03:51 Lymph # 1.8 10^3/uL (1.5-3.5) 11/11/16 03:51 Runnels # 0.2 10^3/uL (0.0-1.0) 11/11/16 03:51 Eos # 0.0 10^3/uL (0.0-0.7) 11/11/16 03:51 Baso # 0.1 10^3/uL (0.0-0.1) 11/11/16 03:51 Absolute Nucleated RBC 0.00 x10^3/uL 11/11/16 03:51 Nucleated RBCs 0.0 /100WBC 11/11/16 03:51 PT 12.0 secs (9.9-12.6) 11/09/16 18:29 INR 1.1 (0.8-1.2) 11/09/16 18:29 Bld Gas Analysis Time 0210 11/12/16 01:55 Sample Site RIGHT RADIAL 11/12/16 01:55 Patient Temperature 101.3 CELSIUS 11/12/16 01:55 ABG pH 7.46 (7.35-7.45) H 11/12/16 01:55 ABG pCO2 36 mmHg (34-45) 11/12/16 01:55 ABG pO2 66 mmHg (80-100) L 11/12/16 01:55 ABG HCO3 24.5 mmol/L (22.0-26.0) 11/12/16 01:55 ABG Total CO2 25.6 MMOL/L (21.0-29.0) 11/12/16 01:55 ABG O2 Saturation 93 % (94-98) L 11/12/16 01:55 ABG Oximetry Spot Check 92 % 11/12/16 01:55 ABG Base Excess 0.9 mmol/L (-2.0-3.0) 11/12/16 01:55 Dustin Test POSITIVE 11/12/16 01:55 VBG pH 7.394 (7.31-7.41) 11/12/16 05:04 Ionized Calcium 1.10 mmol/L (1.15-1.33) L 11/12/16 05:04 Respiration Rate 16 b/min 11/12/16 01:55 Room Air Cancelled 11/11/16 01:55 O2 Delivery Device VENTILATOR 11/12/16 01:55 O2 Liters/Min Cancelled 11/11/16 01:55 Vent Mode ACCESSED/CONTROL 11/12/16 01:55 FiO2 40.00 11/12/16 01:55 Tidal Volume 490 mL 11/12/16 01:55 PEEP 5 cmH2O 11/12/16 01:55 Pressure Support Vent 0 cmH2O 11/12/16 01:55 EPAP Cancelled 11/11/16 01:55 IPAP Cancelled 11/11/16 01:55 Sodium 147 mmol/L (135-145) H 11/11/16 03:51 Potassium 3.2 mmol/L (3.5-5.0) L 11/12/16 05:04 Chloride 119 mmol/L (101-111) H 11/11/16 03:51 Carbon Dioxide 20 mmol/L (21-32) L 11/11/16 03:51 Anion Gap 7.0 (6-13) 11/11/16 03:51 BUN 6 mg/dL (6-20) 11/11/16 03:51 Creatinine 0.4 mg/dL (0.4-1.0) 11/11/16 03:51 Estimated GFR (MDRD) 171 (>89) 11/11/16 03:51 Glucose 83 mg/dL (70-100) 11/11/16 03:51 Calcium 7.9 mg/dL (8.5-10.3) L 11/12/16 05:04 Ionized Calcium YES 11/12/16 05:04 Phosphorus 2.7 mg/dL (2.5-4.6) 11/12/16 04:53 Magnesium 1.4 mg/dL (1.7-2.8) L 11/12/16 04:53 Total Bilirubin 0.4 mg/dL (0.2-1.0) 11/08/16 21:59 AST 147 IU/L (10-42) H 11/08/16 21:59 ALT 116 IU/L (10-60) H 11/08/16 21:59 Alkaline Phosphatase 96 IU/L (42-121) 11/08/16 21:59 Total Protein 8.8 g/dL (6.7-8.2) H 11/08/16 21:59 Albumin 2.7 g/dL (3.2-5.5) L 11/12/16 05:04 Globulin 4.1 g/dL (2.1-4.2) 11/08/16 21:59 Albumin/Globulin Ratio 1.1 (1.0-2.2) 11/08/16 21:59 Lipase 24 U/L (22-51) 11/08/16 21:59 TSH 2.38 uIU/mL (0.34-5.60) 11/08/16 21:59 Urine Color YELLOW 11/09/16 02:49 Urine Clarity CLEAR (CLEAR) 11/09/16 02:49 Urine pH 6.0 PH (5.0-7.5) 11/09/16 02:49 Ur Specific Hartman <=1.005 (1.002-1.030) 11/09/16 02:49 Urine Protein NEGATIVE mg/dL (NEGATIVE) 11/09/16 02:49 Urine Glucose (UA) NEGATIVE mg/dL (NEGATIVE) 11/09/16 02:49 Urine Ketones NEGATIVE mg/dL (NEGATIVE) 11/09/16 02:49 Urine Occult Blood TRACE-LYSE (NEGATIVE) 11/09/16 02:49 Urine Nitrite NEGATIVE (NEGATIVE) 11/09/16 02:49 Urine Bilirubin NEGATIVE (NEGATIVE) 11/09/16 02:49 Urine Urobilinogen 0.2 (NORMAL) E.U./dL (NORMAL) 11/09/16 02:49 Ur Leukocyte Esterase NEGATIVE (NEGATIVE) 11/09/16 02:49 Ur Microscopic Review NOT INDICATED 11/09/16 02:49 Urine Culture Comments NOT INDICATED 11/09/16 02:49 Salicylates < 6.0 mg/dL 11/08/16 21:59 Urine Opiates Screen NEGATIVE (NEGATIVE) 11/09/16 02:49 Ur Oxycodone Screen NEGATIVE (NEGATIVE) 11/09/16 02:49 Urine Methadone Screen NEGATIVE (NEGATIVE) 11/09/16 02:49 Ur Propoxyphene Screen NEGATIVE (NEGATIVE) 11/09/16 02:49 Acetaminophen < 10 ug/mL (10-30) L 11/08/16 21:59 Ur Barbiturates Screen NEGATIVE (NEGATIVE) 11/09/16 02:49 Ur Tricyclics Screen NEGATIVE (NEGATIVE) 11/09/16 02:49 Ur Phencyclidine Scrn NEGATIVE (NEGATIVE) 11/09/16 02:49 Ur Amphetamine Screen NEGATIVE (NEGATIVE) 11/09/16 02:49 U Methamphetamines Scrn NEGATIVE (NEGATIVE) 11/09/16 02:49 U Benzodiazepines Scrn NEGATIVE (NEGATIVE) 11/09/16 02:49 Urine Cocaine Screen NEGATIVE (NEGATIVE) 11/09/16 02:49 U Cannabinoids Screen POSITIVE (NEGATIVE) H 11/09/16 02:49 Ethyl Alcohol 49.0 mg/dL 11/09/16 06:49
[2016-11-12] MEDS: SODIUM CHLORIDE FLUSH 0.9% 10 ML SYRINGE IVP PRN (20:29)
[2016-11-12] MEDS: ACETAMINOPHEN 160 MG/5 ML SUSP UDC PO PRN (20:52)
[2016-11-13] MEDS: PROPOFOL 1000 MG/100 ML 100 ML IV SCH ×5 (00:05→23:31)
[2016-11-13] MEDS: MINERAL OIL/PETROLAT OPHTH OINT EACHEYE PRN (00:05)
[2016-11-13] MEDS: D5.45NS W/20 MEQ KCL 1,000 ML IV SCH (01:41)
[2016-11-13] MEDS: CEFEPIME 2 GM in SODIUM CHLORIDE 0.9% MINIBAG 100 ML IV SCH ×3 (04:04→21:00)
[2016-11-13 04:34] LABS: MAGNESIUM 1.4 mg/dL (1.7-2.8); POTASSIUM 3.5 mmol/L (3.5-5.0)
[2016-11-13] MEDS: SODIUM CHLORIDE FLUSH 0.9% 10 ML SYRINGE IVP SCH ×3 (05:39→21:01)
[2016-11-13] MEDS: MIDAZOLAM DRIP 100 ML IV SCH ×2 (06:18→18:36)
[2016-11-13 07:36] LABS: ABG HCO3 22.9 mmol/L (22.0-26.0); ABG PCO2 37 mmHg (34-45); ABG PH 7.41 (7.35-7.45)
[2016-11-13 07:37] LABS: ABG BASE EXCESS -1.4 mmol/L (-2.0-3.0); ABG MODE OF VENTILATION ACCESSED/CONTROL; ABG O2 DEVICE VENTILATOR; ABG OXYGEN SATURATION 92 % (94-98); ABG PEAK END EXPIRATORY PRESSU 5 cmH2O; ABG RESPIRATORY RATE 16 b/min; ABG SATURATION PULSE OXIMETRY% 93 %; ABG SITE OF DRAW RIGHT RADIAL; ALLEN TEST POSITIVE
[2016-11-13 07:38] LABS: ABG PO2 66 mmHg (80-100)
[2016-11-13] MEDS: MULTIVITAMIN 10 ML, THIAMINE INJ 100 MG, FOLIC ACID INJ 1 MG in D5.45NS W/20 MEQ KCL 1,... IV SCH (08:19)
[2016-11-13] MEDS: NICOTINE 14 MG PATCH TOP SCH (08:19)
[2016-11-13] MEDS: POLYETHYLENE GLYCOL 3350 17 GM PACKET PO SCH (08:19)
[2016-11-13] MEDS: PANTOPRAZOLE 40 MG VIAL IVP SCH ×2 (08:19→21:00)
[2016-11-13] MEDS: CHLORHEXIDINE GLUCONATE 15 ML UDC PO SCH ×2 (08:19→21:00)
[2016-11-13] MEDS ORDERED: MAGNESIUM SULFATE 2 GRAM 50 ML IV SCH (09:00)
--- NOTE | 2016-11-13 11:50 | XRAY Report ---
FRONTAL CHEST: 11/13/2016 CLINICAL INDICATION: Followup pneumonia. COMPARISON: 11/11/2016. FINDINGS: Frontal view of the chest demonstrates an endotracheal tube terminating 1 cm above the car nathan. An enteric tube terminates in the stomach. The cardiac silhouette is not enlarged. Bibasilar inf iltrates are increasing. No definite effusion or pneumothorax is seen. IMPRESSION: INCREASING BIBASILAR INFILTRATES. JOB #: [id number] EXT JOB #:[id number]
[2016-11-13 14:57] LABS: BASOPHILS % (AUTO) 0.4 %; EOSINOPHILS % (AUTO) 1.2 %; HCT - HEMATOCRIT 32.9 % (37.0-47.0); HGB - HEMOGLOBIN 11.4 g/dL (12.0-16.0); LYMPHOCYTES % (AUTO) 16.9 %; MEAN CORPUSCULAR HEMOGLOBIN 35.1 pg (27.0-31.0); MEAN CORPUSCULAR HGB CONC 34.7 g/dL (32.0-36.0); MEAN PLATELET VOLUME 10.8 fL (7.9-10.8); MONOCYTES % (AUTO) 11.1 %; NEUTROPHILS % (AUTO) 70.4 %; RED BLOOD COUNT 3.26 10^6/uL (4.20-5.40); UNCORRECTED WHITE BLOOD COUNT 11.5 x10^3/uL; WHITE BLOOD COUNT 9.6 x10^3/uL (4.8-10.8)
[2016-11-13 15:00] LABS: BAND NEUTROPHILS % (MANUAL) 18 %; EOSINOPHILS % (MANUAL) 1 %; LYMPHOCYTES % (MANUAL) 17 %; NEUTROPHILS % (MANUAL) 49 %; NP AUTO DIFFERENTIAL? YES; NP MAN DIFFERENTIAL? NO; PLATELET ESTIMATE, MANUAL NORMAL (130-450,000) (NORMAL); PLATELET MORPHOLOGY PLATELET CLUMPING (NORMAL); TOTAL CELLS COUNTED 100; WBC MORPHOLOGY (MULTIPLE) 2+ VACUOLATION (NORMAL)
--- NOTE | 2016-11-13 18:44 | PROVIDER PROGRESS NOTE ---
Assessment/Plan - Problem List (3) Pneumonia Qualifiers: Laterality: left Assessment/Plan: Continue ventilator support til no longer sedated and til respiratory status indicates she can be extubated. Continue iv antibiotics Await cultures. (4) Delirium Assessment/Plan: Pt still on Propofol and Verdsed drips. Will begin taper of Propofol to off today, continue Versed and start titrating that down tomorrow - Current Meds Current Meds: Current Medications Generic Name Dose Route Start Last Admin Trade Name Freq PRN Reason Stop Dose Admin Acetaminophen 650 mg 11/11/16 23:27 11/12/16 20:52 Tylenol PO 650 mg Q8HR PRN Administration Pain or Fever > 38C (100.4F) Carboxymethylcellulose 1 drops 11/11/16 11:34 11/12/16 00:34 Refresh 1% Ophth Drops EACHEYE 2 applic PRN PRN Administration Dry Eye Chlorhexidine Gluconate 15 ml 11/09/16 21:00 11/13/16 08:19 Peridex PO 15 ml BID VAIBHAV Administration Midazolam HCl 100 mls @ 4.173 mls/hr 11/09/16 16:00 11/13/16 18:36 Versed Drip IV 8.47 mls/hr .[id number] VAIBHAV Administration Protocol 0.04 MG/KG/HR Propofol 100 mls @ 1.565 mls/hr 11/09/16 16:00 11/13/16 18:23 Diprivan IV 35 mcg/kg/min TITR VAIBHAV Titration Protocol 5 MCG/KG/MIN Multivitamins 10 ml/ Thiamine 1,011.2 mls @ 100 mls/hr 11/10/16 09:00 11/13/16 08:19 HCl 100 mg/ Folic Acid 1 mg/ IV 100 mls/hr Potassium Chloride/Dextrose/ DAILY VAIBHAV Administration Sod Cl Potassium Chloride/Dextrose/Sod Cl 1,000 mls @ 80 mls/hr 11/11/16 10:00 01:41 D5.45ns W/20 Meq Kcl IV 80 mls/hr .[id number] VAIBHAV Administration Cefepime HCl 2 gm/ Sodium 100 mls @ 200 mls/hr 11/11/16 20:00 11/13/16 11:11 Chloride IV 200 mls/hr Q8H VAIBHAV Administration Morphine Sulfate 2 mg 11/12/16 00:04 11/12/16 23:18 Morphine IVP 2 mg Q2HR PRN Administration PAIN Multi-Ingred Cream/Lotion/Oil/Oint 1 applic 11/12/16 04:01 11/13/16 00:05 Lubrifresh Pm Ophth Oint EACHEYE 1 applic QPM PRN Administration Dry Eye Nicotine 1 patch 11/10/16 13:00 11/13/16 08:19 Nicoderm TOP 1 patch DAILY VAIBHAV Administration Pantoprazole Sodium 40 mg 11/09/16 21:00 11/13/16 08:19 Protonix IVP 40 mg BID VAIBHAV Administration Polyethylene Glycol 17 gm 11/10/16 09:00 11/13/16 08:19 Miralax PO 17 gm DAILY VAIBHAV Administration Sodium Chloride 10 ml 11/09/16 15:52 11/12/16 20:29 Normal Saline Flush 0.9% IVP 10 ml PRN PRN Administration NEEDED PER PROVIDER ORDERS Sodium Chloride 10 ml 11/09/16 22:00 11/13/16 12:59 Normal Saline Flush 0.9% IVP 10 ml Q8HR VAIBHAV Administration - Lab Result Fish Bone Diagrams: 11/13/16 13:45 11/13/16 03:55 - Additional Planning My Orders: My Active Orders 11/13/16 BMP - BASIC METABOLIC PANEL [CHEM] Urgent MAGNESIUM [CHEM] Urgent 11/13/16 11:37 Miscellaenous Nursing Order [RC] QSVAFT 11/13/16 12:26 Daily Weight [RC] DAILY IO [RC] QSHIFT Tube Feeding [RC] QSVAFT 11/14/16 05:00 BMP - BASIC METABOLIC PANEL [CHEM] DAILYLAB CBC - COMP BLD CT W/AUTO DIFF [HEME] DAILYLAB COMPREHENSIVE METABOLIC PANEL [CHEM] Timed MAGNESIUM [CHEM] DAILYLAB MAGNESIUM [CHEM] Timed PHOSPHORUS [CHEM] DAILYLAB PHOSPHORUS [CHEM] Timed PREALBUMIN [CHEM] Timed 11/15/16 05:00 MAGNESIUM [CHEM] DAILYLAB PHOSPHORUS [CHEM] DAILYLAB 11/16/16 05:00 COMPREHENSIVE METABOLIC PANEL [CHEM] Timed MAGNESIUM [CHEM] Timed PHOSPHORUS [CHEM] Timed PREALBUMIN [CHEM] Timed 11/19/16 05:00 COMPREHENSIVE METABOLIC PANEL [CHEM] Timed MAGNESIUM [CHEM] Timed PHOSPHORUS [CHEM] Timed PREALBUMIN [CHEM] Timed Subjective - Subjective Nursing Reports: Other (Pt still sedated. Pt had a fever spike again overnight and was cultured during fever.) Objective Vital Signs: Vital Signs - 24 hr 11/12/16 11/12/16 11/12/16 19:00 20:00 21:00 Temperature 38.3 C H 38.9 C H 39.4 C H Heart Rate 113 H Heart Rate [ 108 H 97 117 H Monitoring electrodes] Respiratory 20 21 22 Rate Blood Pressure 124/76 131/82 H 133/76 H [Left Brachial artery] O2 Saturation 97 100 98 11/12/16 11/12/16 11/12/16 22:00 22:10 23:00 Temperature 39.5 C H 38.9 C H Heart Rate 131 H Heart Rate [ 86 135 H Monitoring electrodes] Respiratory 24 23 Rate Blood Pressure 135/69 H 113/74 [Left Brachial artery] O2 Saturation 91 L 94 11/12/16 11/13/16 11/13/16 23:55 00:00 01:00 Temperature 38.1 C H 38.1 C H Heart Rate Heart Rate [ 128 H 128 H 123 H Monitoring electrodes] Respiratory 21 23 20 Rate Blood Pressure 97/56 L 103/58 L [Left Brachial artery] O2 Saturation 95 95 92 11/13/16 11/13/16 11/13/16 01:15 02:00 03:00 Temperature 37.6 C H Heart Rate 120 H Heart Rate [ 119 H 108 H Monitoring electrodes] Respiratory 17 19 Rate Blood Pressure 105/65 106/66 [Left Brachial artery] O2 Saturation 92 94 11/13/16 11/13/16 11/13/16 04:00 05:00 06:00 Temperature 37.1 C Heart Rate Heart Rate [ 101 H 101 H 103 H Monitoring electrodes] Respiratory 17 17 17 Rate Blood Pressure 107/62 97/55 L 92/57 L [Left Brachial artery] O2 Saturation 98 96 94 11/13/16 11/13/16 11/13/16 07:40 08:00 09:00 Temperature 36.8 C Heart Rate 95 Heart Rate [ 93 81 Monitoring electrodes] Respiratory 17 20 Rate Blood Pressure 101/53 L 100/58 L [Left Brachial artery] O2 Saturation 97 100 11/13/16 11/13/16 11/13/16 09:11 10:00 10:59 Temperature Heart Rate 93 90 Heart Rate [ 91 Monitoring electrodes] Respiratory 17 Rate Blood Pressure 99/58 L [Left Brachial artery] O2 Saturation 95 11/13/16 11/13/16 11/13/16 11:00 12:00 13:00 Temperature 36.4 C L Heart Rate Heart Rate [ 84 87 95 Monitoring electrodes] Respiratory 16 16 17 Rate Blood Pressure 93/62 103/68 109/68 [Left Brachial artery] O2 Saturation 96 100 97 11/13/16 11/13/16 11/13/16 13:10 14:00 15:00 Temperature Heart Rate 95 Heart Rate [ 95 89 Monitoring electrodes] Respiratory 18 18 Rate Blood Pressure 109/66 99/58 L [Left Brachial artery] O2 Saturation 100 99 11/13/16 11/13/16 11/13/16 15:50 16:04 17:00 Temperature 97.2 C H Heart Rate 99 Heart Rate [ 100 97 Monitoring electrodes] Respiratory 21 20 Rate Blood Pressure 120/94 H 116/71 [Left Brachial artery] O2 Saturation 99 95 11/13/16 11/13/16 17:57 18:00 Temperature Heart Rate 100 Heart Rate [ 101 H Monitoring electrodes] Respiratory 21 Rate Blood Pressure 111/65 [Left Brachial artery] O2 Saturation 95 Oxygen O2 Source Mechanical ventilator I&O (Last 24 Hrs): Intake and Output Totals x24h 11/11/16 11/12/16 11/13/16 23:59 23:59 23:59 Intake Total 4517 4992 2847 Output Total 2686 3783 1601 Balance 1831 1209 1246 General: Other (Sefated, no mvm) Respiratory: Breath sounds nml Abdomen: Soft - Results Results: Laboratory Results WBC 9.6 x10^3/uL (4.8-10.8) 11/13/16 13:45 RBC 3.26 10^6/uL (4.20-5.40) L 11/13/16 13:45 Hgb 11.4 g/dL (12.0-16.0) L 11/13/16 13:45 Hct 32.9 % (37.0-47.0) L 11/13/16 13:45 MCV 101.0 fL (81.0-99.0) H 11/13/16 13:45 MCH 35.1 pg (27.0-31.0) H 11/13/16 13:45 MCHC 34.7 g/dL (32.0-36.0) 11/13/16 13:45 RDW 15.0 % (12.0-15.0) 11/13/16 13:45 Plt Count [employer] 11/13/16 13:45 MPV 10.8 fL (7.9-10.8) 11/13/16 13:45 Neut # Not Reportable 11/13/16 13:45 Lymph # Not Reportable 11/13/16 13:45 Mccurtain # Not Reportable 11/13/16 13:45 Eos # Not Reportable 11/13/16 13:45 Baso # Not Reportable 11/13/16 13:45 Absolute Nucleated RBC Not Reportable 11/13/16 13:45 Total Counted 100 11/13/16 13:45 Band Neuts % (Manual) 18 % (0-10) H 11/13/16 13:45 Neutrophils # (Manual) 6.4 10^3/uL (1.5-6.6) 11/13/16 13:45 Lymphocytes # (Manual) 1.6 10^3/uL (1.5-3.5) 11/13/16 13:45 Monocytes # (Manual) 1.4 10^3/uL (0.0-1.0) H 11/13/16 13:45 Eosinophils # (Manual) 0.1 10^3/uL (0-0.7) 11/13/16 13:45 Nucleated RBCs Not Reportable 11/13/16 13:45 Differential Comment MANUAL DIFFERENTIAL 11/13/16 13:45 WBC Morphology 2+ VACUOLATION (NORMAL) 11/13/16 13:45 Platelet Estimate NORMAL (130-450,000) (NORMAL) 11/13/16 13:45 Platelet Morphology PLATELET CLUMPING (NORMAL) 11/13/16 13:45 RBC Morph Micro Appear 2+ MACROCYTOSIS (NORMAL) 11/13/16 13:45 PT 12.0 secs (9.9-12.6) 11/09/16 18:29 INR 1.1 (0.8-1.2) 11/09/16 18:29 Bld Gas Analysis Time 0711/13/16 07:25 Sample Site RIGHT RADIAL 11/13/16 07:25 Patient Temperature 101.3 CELSIUS 11/12/16 01:55 ABG pH 7.41 (7.35-7.45) 11/13/16 07:25 ABG pCO2 37 mmHg (34-45) 11/13/16 07:25 ABG pO2 66 mmHg (80-100) L 11/13/16 07:25 ABG HCO3 22.9 mmol/L (22.0-26.0) 11/13/16 07:25 ABG Total CO2 24.0 MMOL/L (21.0-29.0) 11/13/16 07:25 ABG O2 Saturation 92 % (94-98) L 11/13/16 07:25 ABG Oximetry Spot Check 93 % 11/13/16 07:25 ABG Base Excess -1.4 mmol/L (-2.0-3.0) 11/13/16 07:25 Dustin Test POSITIVE 11/13/16 07:25 VBG pH 7.394 (7.31-7.41) 11/12/16 05:04 Ionized Calcium 1.10 mmol/L (1.15-1.33) L 11/12/16 05:04 Respiration Rate 16 b/min 11/13/16 07:25 Room Air Cancelled 11/11/16 01:55 O2 Delivery Device VENTILATOR 11/13/16 07:25 O2 Liters/Min Cancelled 11/11/16 01:55 Vent Mode ACCESSED/CONTROL 11/13/16 07:25 FiO2 35.00 11/13/16 07:25 Tidal Volume 490 mL 11/13/16 07:25 PEEP 5 cmH2O 11/13/16 07:25 Pressure Support Vent 0 cmH2O 11/12/16 01:55 EPAP Cancelled 11/11/16 01:55 IPAP Cancelled 11/11/16 01:55 Sodium 147 mmol/L (135-145) H 11/11/16 03:51 Potassium 3.5 mmol/L (3.5-5.0) 11/13/16 03:55 Chloride 119 mmol/L (101-111) H 11/11/16 03:51 Carbon Dioxide 20 mmol/L (21-32) L 11/11/16 03:51 Anion Gap 7.0 (6-13) 11/11/16 03:51 BUN 6 mg/dL (6-20) 11/11/16 03:51 Creatinine 0.4 mg/dL (0.4-1.0) 11/11/16 03:51 Estimated GFR (MDRD) 171 (>89) 11/11/16 03:51 Glucose 83 mg/dL (70-100) 11/11/16 03:51 Calcium 7.9 mg/dL (8.5-10.3) L 11/12/16 05:04 Ionized Calcium YES 11/12/16 05:04 Phosphorus 4.1 mg/dL (2.5-4.6) 11/13/16 03:55 Magnesium 1.4 mg/dL (1.7-2.8) L 11/13/16 03:55 Total Bilirubin 0.4 mg/dL (0.2-1.0) 11/08/16 21:59 AST 147 IU/L (10-42) H 11/08/16 21:59 ALT 116 IU/L (10-60) H 11/08/16 21:59 Alkaline Phosphatase 96 IU/L (42-121) 11/08/16 21:59 Total Creatine Kinase 138 IU/L (22-269) 11/12/16 22:41 Total Protein 8.8 g/dL (6.7-8.2) H 11/08/16 21:59 Albumin 2.7 g/dL (3.2-5.5) L 11/12/16 05:04 Globulin 4.1 g/dL (2.1-4.2) 11/08/16 21:59 Albumin/Globulin Ratio 1.1 (1.0-2.2) 11/08/16 21:59 Lipase 24 U/L (22-51) 11/08/16 21:59 TSH 2.38 uIU/mL (0.34-5.60) 11/08/16 21:59 Urine Color YELLOW 11/09/16 02:49 Urine Clarity CLEAR (CLEAR) 11/09/16 02:49 Urine pH 6.0 PH (5.0-7.5) 11/09/16 02:49 Ur Specific Lamar <=1.005 (1.002-1.030) 11/09/16 02:49 Urine Protein NEGATIVE mg/dL (NEGATIVE) 11/09/16 02:49 Urine Glucose (UA) NEGATIVE mg/dL (NEGATIVE) 11/09/16 02:49 Urine Ketones NEGATIVE mg/dL (NEGATIVE) 11/09/16 02:49 Urine Occult Blood TRACE-LYSE (NEGATIVE) 11/09/16 02:49 Urine Nitrite NEGATIVE (NEGATIVE) 11/09/16 02:49 Urine Bilirubin NEGATIVE (NEGATIVE) 11/09/16 02:49 Urine Urobilinogen 0.2 (NORMAL) E.U./dL (NORMAL) 11/09/16 02:49 Ur Leukocyte Esterase NEGATIVE (NEGATIVE) 11/09/16 02:49 Ur Microscopic Review NOT INDICATED 11/09/16 02:49 Urine Culture Comments NOT INDICATED 11/09/16 02:49 Salicylates < 6.0 mg/dL 11/08/16 21:59 Urine Opiates Screen NEGATIVE (NEGATIVE) 11/09/16 02:49 Ur Oxycodone Screen NEGATIVE (NEGATIVE) 11/09/16 02:49 Urine Methadone Screen NEGATIVE (NEGATIVE) 11/09/16 02:49 Ur Propoxyphene Screen NEGATIVE (NEGATIVE) 11/09/16 02:49 Acetaminophen < 10 ug/mL (10-30) L 11/08/16 21:59 Ur Barbiturates Screen NEGATIVE (NEGATIVE) 11/09/16 02:49 Ur Tricyclics Screen NEGATIVE (NEGATIVE) 11/09/16 02:49 Ur Phencyclidine Scrn NEGATIVE (NEGATIVE) 11/09/16 02:49 Ur Amphetamine Screen NEGATIVE (NEGATIVE) 11/09/16 02:49 U Methamphetamines Scrn NEGATIVE (NEGATIVE) 11/09/16 02:49 U Benzodiazepines Scrn NEGATIVE (NEGATIVE) 11/09/16 02:49 Urine Cocaine Screen NEGATIVE (NEGATIVE) 11/09/16 02:49 U Cannabinoids Screen POSITIVE (NEGATIVE) H 11/09/16 02:49 Ethyl Alcohol 49.0 mg/dL 11/09/16 06:49
[2016-11-13] MEDS: SODIUM CHLORIDE FLUSH 0.9% 10 ML SYRINGE IVP PRN (21:01)
[2016-11-14] MEDS: D5.45NS W/20 MEQ KCL 1,000 ML IV SCH ×3 (02:23→20:49)
[2016-11-14] MEDS: MORPHINE 2 MG/ML CARPUJECT IVP PRN ×5 (02:37→22:29)
[2016-11-14] MEDS: CEFEPIME 2 GM in SODIUM CHLORIDE 0.9% MINIBAG 100 ML IV SCH ×3 (04:48→20:49)
[2016-11-14] MEDS: SODIUM CHLORIDE FLUSH 0.9% 10 ML SYRINGE IVP SCH ×3 (04:48→20:51)
[2016-11-14 06:12] LABS: BASOPHILS % (AUTO) 0.5 %; EOSINOPHILS # (AUTO) 0.1 10^3/uL (0.0-0.7); EOSINOPHILS % (AUTO) 1.3 %; HCT - HEMATOCRIT 32.4 % (37.0-47.0); HGB - HEMOGLOBIN 10.9 g/dL (12.0-16.0); LYMPHOCYTES # (AUTO) 1.2 10^3/uL (1.5-3.5); MEAN CORPUSCULAR HEMOGLOBIN 34.7 pg (27.0-31.0); MEAN CORPUSCULAR HGB CONC 33.8 g/dL (32.0-36.0); MEAN CORPUSCULAR VOLUME 102.5 fL (81.0-99.0); MEAN PLATELET VOLUME 9.6 fL (7.9-10.8); MONOCYTES % (AUTO) 14.9 %; NEUTROPHILS # (AUTO) 4.5 10^3/uL (1.5-6.6); NEUTROPHILS % (AUTO) 65.3 %; NUCLEATED RED BLOOD CELLS AUTO 0.1 /100WBC; RED BLOOD COUNT 3.16 10^6/uL (4.20-5.40); RED CELL DISTRIBUTION WIDTH 15.2 % (12.0-15.0); UNCORRECTED WHITE BLOOD COUNT 6.8 x10^3/uL; WHITE BLOOD COUNT 6.8 x10^3/uL (4.8-10.8)
[2016-11-14] MEDS: MIDAZOLAM DRIP 100 ML IV SCH ×2 (06:14→14:32)
[2016-11-14 06:26] LABS: CREATININE 0.4 mg/dL (0.4-1.0); MAGNESIUM 1.5 mg/dL (1.7-2.8); PHOSPHORUS 1.5 mg/dL (2.5-4.6); POTASSIUM 3.1 mmol/L (3.5-5.0)
[2016-11-14 06:29] LABS: ALBUMIN/GLOBULIN RATIO 0.7 (1.0-2.2); BILIRUBIN,TOTAL 0.7 mg/dL (0.2-1.0); CREATININE 0.4 mg/dL (0.4-1.0); POTASSIUM 3.1 mmol/L (3.5-5.0); TOTAL PROTEIN 6.2 g/dL (6.7-8.2)
[2016-11-14] MEDS: MAGNESIUM OXIDE 400 MG TABLET PO SCH ×2 (06:57→12:38)
[2016-11-14] MEDS ORDERED: POTASSIUM CHLORIDE 20 MEQ/15 ML UDC PO ONE (07:00)
[2016-11-14] MEDS: PROPOFOL 1000 MG/100 ML 100 ML IV SCH (07:42)
[2016-11-14] MEDS ORDERED: POTASSIUM PHOSPHATE 21 MMOL in SODIUM CHLORIDE 0.9% 250 ML IV ONE (08:00)
[2016-11-14] MEDS: MULTIVITAMIN 10 ML, THIAMINE INJ 100 MG, FOLIC ACID INJ 1 MG in D5.45NS W/20 MEQ KCL 1,... IV SCH (08:11)
[2016-11-14] MEDS: CHLORHEXIDINE GLUCONATE 15 ML UDC PO SCH ×2 (08:11→20:51)
[2016-11-14] MEDS: POLYETHYLENE GLYCOL 3350 17 GM PACKET PO SCH (08:12)
[2016-11-14] MEDS: PANTOPRAZOLE 40 MG VIAL IVP SCH ×2 (08:12→20:51)
[2016-11-14] MEDS: NICOTINE 14 MG PATCH TOP SCH (08:12)
[2016-11-14] MEDS ORDERED: LORazepam 2 MG/ML SYRINGE IVP STA (16:19)
[2016-11-14] MEDS: ACETAMINOPHEN 160 MG/5 ML SUSP UDC PO PRN (16:28)
[2016-11-14] MEDS: DEXMEDETOMIDINE 400 MCG/100 ML 100 ML IV PRN ×2 (16:33→20:50)
[2016-11-14] MEDS: SODIUM CHLORIDE FLUSH 0.9% 10 ML SYRINGE IVP PRN ×2 (17:06→18:34)
[2016-11-14] MEDS ORDERED: SODIUM CHLORIDE INHALATION 3 ML NEB ONE (18:04)
[2016-11-15] MEDS: MORPHINE 2 MG/ML CARPUJECT IVP PRN ×7 (00:07→17:41)
[2016-11-15] MEDS ORDERED: HALOPERIDOL 5 MG/ML VIAL IM SCH (00:12)
[2016-11-15] MEDS: DEXMEDETOMIDINE 400 MCG/100 ML 100 ML IV PRN ×5 (01:03→17:40)
[2016-11-15] MEDS: D5.45NS W/20 MEQ KCL 1,000 ML IV SCH ×3 (01:49→20:34)
[2016-11-15] MEDS: CEFEPIME 2 GM in SODIUM CHLORIDE 0.9% MINIBAG 100 ML IV SCH ×3 (04:53→20:34)
[2016-11-15] MEDS: SODIUM CHLORIDE FLUSH 0.9% 10 ML SYRINGE IVP SCH ×2 (05:33→09:48)
[2016-11-15 05:38] LABS: MAGNESIUM 1.5 mg/dL (1.7-2.8); PHOSPHORUS 2.8 mg/dL (2.5-4.6)
[2016-11-15 05:40] LABS: POTASSIUM 3.2 mmol/L (3.5-5.0)
[2016-11-15 05:45] LABS: CALCIUM 8.3 mg/dL (8.5-10.3)
[2016-11-15 05:52] LABS: ABG BASE EXCESS 4.2 mmol/L (-2.0-3.0); ABG HCO3 27.1 mmol/L (22.0-26.0); ABG PCO2 34 mmHg (34-45); ABG PH 7.52 (7.35-7.45); ABG PO2 78 mmHg (80-100); ABG TCO2 28.1 MMOL/L (21.0-29.0)
[2016-11-15 05:53] LABS: ABG MODE OF VENTILATION SIMV; ABG OXYGEN SATURATION 96 % (94-98); ABG PEAK END EXPIRATORY PRESSU 5 cmH2O; ABG PRESSURE SUPPORT VENT 12 cmH2O; ABG RESPIRATORY RATE 16 b/min; ABG SITE OF DRAW RIGHT RADIAL; ALLEN TEST POSITIVE
[2016-11-15 05:58] LABS: CALCIUM, IONIZED 1.06 mmol/L (1.15-1.33); VBG PH 7.522 (7.31-7.41)
[2016-11-15] MEDS: MIDAZOLAM DRIP 100 ML IV SCH (06:45)
[2016-11-15] MEDS ORDERED: MAGNESIUM SULFATE 2 GRAM 50 ML IV ONE (07:00)
[2016-11-15] MEDS: POTASSIUM CHLOR 10 MEQ/100 ML 100 ML IV SCH ×4 (08:14→12:01)
[2016-11-15] MEDS ORDERED: DOCUSATE SODIUM 100 MG/10 ML UDC FT SCH (09:00)
[2016-11-15] MEDS: MULTIVITAMIN 10 ML, THIAMINE INJ 100 MG, FOLIC ACID INJ 1 MG in D5.45NS W/20 MEQ KCL 1,... IV SCH (09:47)
[2016-11-15] MEDS: PANTOPRAZOLE 40 MG VIAL IVP SCH (09:48)
[2016-11-15] MEDS: ACETAMINOPHEN 160 MG/5 ML SUSP UDC PO PRN ×2 (09:48→19:25)
[2016-11-15] MEDS: NICOTINE 14 MG PATCH TOP SCH (09:48)
[2016-11-15] MEDS: POLYETHYLENE GLYCOL 3350 17 GM PACKET PO SCH (09:48)
[2016-11-15] MEDS: CHLORHEXIDINE GLUCONATE 15 ML UDC PO SCH (09:49)
--- NOTE | 2016-11-15 10:30 | XRAY Report ---
FRONTAL CHEST: 11/15/2016 CLINICAL INDICATION: Pneumonia, intubated. COMPARISON: 11/13/2016 FINDINGS: Frontal view of the chest demonstrates an endotracheal tube terminating 1 cm above the car nathan. Enteric tube terminates in the stomach. The cardiac silhouette is within normal limits. Bibas ilar infiltrates are improving. No effusion or pneumothorax is seen. IMPRESSION: IMPROVING BIBASILAR INFILTRATES. JOB #: [id number] EXT JOB #:[id number]
[2016-11-15 11:00] LABS: BASOPHILS # (AUTO) 0.1 10^3/uL (0.0-0.1); BASOPHILS % (AUTO) 0.6 %; EOSINOPHILS # (AUTO) 0.2 10^3/uL (0.0-0.7); EOSINOPHILS % (AUTO) 1.3 %; HCT - HEMATOCRIT 34.1 % (37.0-47.0); HGB - HEMOGLOBIN 11.4 g/dL (12.0-16.0); LYMPHOCYTES # (AUTO) 1.6 10^3/uL (1.5-3.5); LYMPHOCYTES % (AUTO) 12.1 %; MEAN CORPUSCULAR HEMOGLOBIN 34.1 pg (27.0-31.0); MEAN CORPUSCULAR HGB CONC 33.4 g/dL (32.0-36.0); MEAN PLATELET VOLUME 10.7 fL (7.9-10.8); MONOCYTES # (AUTO) 1.9 10^3/uL (0.0-1.0); MONOCYTES % (AUTO) 14.1 %; NEUTROPHILS # (AUTO) 9.5 10^3/uL (1.5-6.6); NEUTROPHILS % (AUTO) 71.9 %; NUCLEATED RED BLOOD CELLS AUTO 0.1 /100WBC; RED BLOOD COUNT 3.34 10^6/uL (4.20-5.40); RED CELL DISTRIBUTION WIDTH 14.9 % (12.0-15.0); UNCORRECTED WHITE BLOOD COUNT 14.6 x10^3/uL; WHITE BLOOD COUNT 13.2 x10^3/uL (4.8-10.8)
[2016-11-15 11:02] LABS: ALBUMIN/GLOBULIN RATIO 0.8 (1.0-2.2); BILIRUBIN,TOTAL 0.8 mg/dL (0.2-1.0); BUN - BLOOD UREA NITROGEN 5 mg/dL (6-20); CALCIUM 8.7 mg/dL (8.5-10.3); CARBON DIOXIDE - CO2 23 mmol/L (21-32); CHLORIDE 105 mmol/L (101-111); CREATININE 0.4 mg/dL (0.4-1.0); GFR - MDRD 171 (>89); GLUCOSE 171 mg/dL (70-100); MAGNESIUM 1.8 mg/dL (1.7-2.8); PHOSPHORUS 3.2 mg/dL (2.5-4.6); POTASSIUM 3.8 mmol/L (3.5-5.0); SODIUM 137 mmol/L (135-145); TOTAL PROTEIN 6.7 g/dL (6.7-8.2)
[2016-11-15] MEDS: LORazepam 2 MG/ML SYRINGE IVP PRN ×5 (11:19→19:00)
[2016-11-15 11:23] LABS: PLATELET ESTIMATE, MANUAL NORMAL (130-450,000) (NORMAL); PLATELET MORPHOLOGY PLATELET CLUMPING (NORMAL)
[2016-11-15] MEDS ORDERED: VANCOMYCIN 1.5 GM/NS 500 ML 500 ML IV ONE (14:00)
[2016-11-15] MEDS: fentaNYL 100 MCG/2 ML VIAL IVP PRN ×3 (14:11→20:05)
[2016-11-15] MEDS: metroNIDAZOLE 500 MG/100 ML 100 ML IV SCH ×2 (14:15→17:30)
[2016-11-15] MEDS ORDERED: fentaNYL 100 MCG/2 ML VIAL IVP STA (14:58)
[2016-11-15] MEDS ORDERED: IOPAMIDOL-300 100 ML VIAL IVP ONE (16:13)
[2016-11-15] MEDS ORDERED: SODIUM CHLORIDE INHALATION 3 ML NEB INH PRN (16:30)
--- NOTE | 2016-11-15 17:07 | CT Report ---
EXAM: CT ANGIOGRAM CHEST EXAM DATE: 11/15/2016 04:04 PM. CLINICAL HISTORY: Hypoxic respiratory failure with h/o of DVT. COMPARISON: 09/06/2016. TECHNIQUE: Routine helical imaging was performed through the chest in the pulmonary arterial phase. I V Contrast: 80 cc Isovue 300. Reconstructions: Sagittal, coronal, and 3-D MIP. In accordance with CT protocol optimization, one or more of the following dose reduction techniques w ere utilized for this exam: automated exposure control, adjustment of mA and/or KV based on patient s ize, or use of iterative reconstructive technique. FINDINGS: Pulmonary Arteries: Diagnostic quality: Adequate through the segmental arteries. Multiple emboli in subsegmental vessels of the lower lobes, right more than left, and in the right upper lobe including clot in the distal up per lobe artery. No large or central lesions. RV/LV is within normal limits. There is no interventricular septal bowing. There is moderate reflux o f contrast material in the IVC indicating right heart dysfunction. Lungs/Pleura: Intubated Numerous irregular peripheral pleural based parenchymal densities, most likel y atelectatic, with larger areas of consolidation in the lung bases, left larger than right, with air bronchogram formation. Small pleural effusions, right larger than left. No pneumothorax. Mediastinum: Normal heart size. No pericardial effusion. No coronary artery calcifications. No lympha denopathy. Thoracic Aorta: Unremarkable. Upper Abdomen: Nasogastric tube extending into the stomach. Otherwise unremarkable. Other: None. IMPRESSION: 1. Positive for multiple pulmonary emboli, mostly in the subsegmental vessels, but with at least one clot in the right upper lobe extending to the upper lobe artery. 2. IVC reflux compatible with right heart dysfunction. 3. Multifocal peripheral pulmonary densities, most likely atelectatic, with more prominent consolidat ion in the medial lung bases. 4. Pleural effusions, right more than left. RADIA The above critical findings were discussed with Dr. Rothman by Dr. Markie Garay at 17:03 hrs on . Referring Provider Line: [phone] SITE ID: [id number]
[2016-11-15] MEDS ORDERED: ENOXAPARIN 80 MG/0.8 ML SYRINGE SUBQ SCH (18:00)
[2016-11-15] MEDS ORDERED: FUROSEMIDE 40 MG/4 ML VIAL IVP SCH (19:26)
[2016-11-15] MEDS ORDERED: ACETAMINOPHEN 1,000 MG/100 ML 100 ML IV PRN (19:33)
--- NOTE | 2016-11-15 19:36 | PROVIDER PROGRESS NOTE ---
Assessment/Plan - Problem List (1) Acute respiratory failure with hypoxemia Assessment/Plan: Initially patient became apneic secondary to over sedation in the ER The patients initial chest xray was negative Subsequent chest x rays showed bibasilar infiltrates after intubation which continue to worsen Patient also appears to be very tachypneic and agitated likely secondary to alcohol withdrawal Patient has been stable on 40% FI2 the last few days and appears to be doing ok from a respiratory standpoint but she is not able to follow commands and gets to agitated to be able to be extubated Plan: Continue minimal vent settings Continue IV abx with cefepime day 5 No leukocytosis but patient continues to spike low grade fevers Repeat blood cultures (2) VAP (ventilator-associated pneumonia) Assessment/Plan: Patient initially intubated for airway protection Developed bibasilar infiltrates Worsening on repeat chest xray Patient appears to have developed VAP Plan: COntinue patient on vent Continue IV cefepime (3) Acute encephalopathy Assessment/Plan: Initially appeared to be delirium secondary to psychosis or alcohol intoxication Patient became increasingly agitated and was requiring increasing amounts of sedation Eventually she became over sedated and apneic and required intubation Since being on vent patient has required high doses of sedation Every time sedation is turned down she becomes very agitated, hypertensive, tachycardic and tachypnic this all appears to be alcohol withdrawal Today we will attempt to wean down propofol as we are concerned that patients fevers maybe secondary to propofol and start her on precidex Patients encephalopathy at this point appears to be from alcohol withdrawal although infection could also be playing a role Patient not following commands even when sedation is turned down. Plan: Stop propofol Start precidex and versed COntinue to monitor (4) Alcohol abuse Assessment/Plan: Patient is a daily drinker and according to boyfriend drinks from the time she wakes up in morning to time she passes out at night He cannot quantify her drinking but states it has become heavier since her splitting up with her Patient did see her and was quite upset the day she came into the ER We will continue sedation to keep patient from going into DTs as she appears to get agitated, hypertensive, tachycardic when we decrease sedation Will change propofol to precidex today as patient continues to spike fevers. (5) Protein calorie malnutrition Assessment/Plan: Patient on NG tube feedings with jevity at 40 ml/hour Continue tube feedings (6) Hypokalemia Assessment/Plan: Replace K (7) DVT prophylaxis Assessment/Plan: On SCDs - Current Meds Current Meds: Current Medications Generic Name Dose Route Start Last Admin Trade Name Freq PRN Reason Stop Dose Admin Acetaminophen 650 mg 11/11/16 23:27 11/15/16 19:25 Tylenol PO 650 mg Q8HR PRN Administration Pain or Fever > 38C (100.4F) Carboxymethylcellulose 1 drops 11/11/16 11:34 11/12/16 00:34 Refresh 1% Ophth Drops EACHEYE 2 applic PRN PRN Administration Dry Eye Chlorhexidine Gluconate 15 ml 11/09/16 21:00 11/15/16 09:49 Peridex PO 15 ml BID VAIBHAV Administration Docusate Sodium 100 mg 11/15/16 09:00 11/15/16 09:49 Colace Oral Soln FT 100 mg DAILY VAIBHAV Administration Enoxaparin Sodium 65 mg 11/15/16 18:00 11/15/16 18:08 Lovenox SUBQ 65 mg BID VAIBHAV Administration Fentanyl 25 mcg 11/15/16 13:05 11/15/16 17:41 Fentanyl IVP 25 mcg Q2HR PRN Administration PAIN Midazolam HCl 100 mls @ 4.173 mls/hr 11/09/16 16:00 11/15/16 11:42 Versed Drip IV 0 mg/kg/hr .[id number] VAIBHAV Titration Protocol 0.04 MG/KG/HR Multivitamins 10 ml/ Thiamine 1,011.2 mls @ 100 mls/hr 11/10/16 09:00 11/15/16 09:47 HCl 100 mg/ Folic Acid 1 mg/ IV 100 mls/hr Potassium Chloride/Dextrose/ DAILY VAIBHAV Administration Sod Cl Potassium Chloride/Dextrose/Sod Cl 1,000 mls @ 80 mls/hr 11/11/16 10:00 17:26 D5.45ns W/20 Meq Kcl IV Not Given .[id number] VAIBHAV Cefepime HCl 2 gm/ Sodium 100 mls @ 200 mls/hr 11/11/16 20:00 11/15/16 13:30 Chloride IV 200 mls/hr Q8H VAIBHAV Administration Dexmedetomidine/Sodium Chloride 100 mls @ 4.613 mls/hr 11/14/16 16:17 11/15/16 17:40 Precedex Premix IV 24 mls/hr .[id number] PRN Administration Agitation Protocol 0.3 MCG/KG/HR Metronidazole 100 mls @ 100 mls/hr 11/15/16 14:00 11/15/16 17:30 Flagyl 500 Mg/100 Ml IV 100 mls/hr Q6HR VAIBHAV Administration Lorazepam 2 mg 11/15/16 11:05 11/15/16 19:00 Ativan Inj IVP 2 mg Q2HR PRN Administration Anxiety Morphine Sulfate 2 mg 11/12/16 00:04 11/15/16 17:41 Morphine IVP 2 mg Q2HR PRN Administration PAIN Multi-Ingred Cream/Lotion/Oil/Oint 1 applic 11/12/16 04:01 11/13/16 00:05 Lubrifresh Pm Ophth Oint EACHEYE 1 applic QPM PRN Administration Dry Eye Nicotine 1 patch 11/10/16 13:00 11/15/16 09:48 Nicoderm TOP 1 patch DAILY VAIBHAV Administration Pantoprazole Sodium 40 mg 11/09/16 21:00 11/15/16 09:48 Protonix IVP 40 mg BID VAIBHAV Administration Polyethylene Glycol 17 gm 11/10/16 09:00 11/15/16 09:48 Miralax PO 17 gm DAILY VAIBHAV Administration Sodium Chloride 10 ml 11/09/16 15:52 11/14/16 18:34 Normal Saline Flush 0.9% IVP 10 ml PRN PRN Administration NEEDED PER PROVIDER ORDERS Sodium Chloride 10 ml 11/09/16 22:00 11/15/16 09:48 Normal Saline Flush 0.9% IVP 10 ml Q8HR VAIBHAV Administration - Lab Result Lab results reviewed: Yes Fish Bone Diagrams: 11/15/16 10:43 11/15/16 10:43 - EKG Results EKG Interpreted Independently: Yes - Diagnostic Imaging Results Diagnostic Imaging Results: Final report reviewed - Additional Planning Condition/Complexity: Critical My Orders: My Active Orders 11/15/16 Blood Culture [CULTURE, BLOOD #1] [RM] Stat Blood Culture [CULTURE, BLOOD #2] [] Stat TROPONIN I [IAI] Stat 11/15/16 05:50 Arterial Blood Gases - RT [RC] .ONCE 11/15/16 11:05 LORazepam INJ [Ativan Inj] 2 mg IVP Q2HR PRN 11/15/16 13:05 fentaNYL 25 mcg IVP Q2HR PRN 11/15/16 14:00 metroNIDAZOLE 500 MG/100 ML [Flagyl 500 mg/100 ml] 100 ml IV Q6HR 11/15/16 18:00 Enoxaparin [Lovenox] 65 mg SUBQ BID 11/15/16 19:26 FUROSEMIDE INJ 40mg VIAL [LASIX INJ 40 mg VIAL] 40 mg IVP ONCE 11/15/16 19:33 Acetaminophen 1,000 mg/100 ml [Ofirmev] 100 ml IV Q6HR 11/16/16 02:00 Vancomycin 1.25 gm/Ns 250 ml [Vanco/Sod Chloride 0.9%] 250 ml IV Q12H 11/16/16 05:00 ALBUMIN [CHEM] DAILYLAB CALCIUM, RFLX TO IONIZED CA IF [CHEM] DAILYLAB CBC - COMP BLD CT W/AUTO DIFF [HEME] DAILYLAB CMP, RFLX TO IONIZED CA IF [CHEM] DAILYLAB MAGNESIUM [CHEM] DAILYLAB PHOSPHORUS [CHEM] DAILYLAB POTASSIUM [CHEM] DAILYLAB PT WITH INR [COAG] DAILYLAB 11/16/16 14:00 Warfarin [Coumadin] 5 mg PO QDWARFARIN 11/17/16 05:00 CBC - COMP BLD CT W/AUTO DIFF [HEME] DAILYLAB CMP, RFLX TO IONIZED CA IF [CHEM] DAILYLAB MAGNESIUM [CHEM] DAILYLAB PHOSPHORUS [CHEM] DAILYLAB PT WITH INR [COAG] DAILYLAB 11/17/16 13:30 VANCOMYCIN TROUGH [CHEM] Timed 11/18/16 05:00 CBC - COMP BLD CT W/AUTO DIFF [HEME] DAILYLAB CMP, RFLX TO IONIZED CA IF [CHEM] DAILYLAB MAGNESIUM [CHEM] DAILYLAB PHOSPHORUS [CHEM] DAILYLAB PT WITH INR [COAG] DAILYLAB 11/19/16 05:00 CBC - COMP BLD CT W/AUTO DIFF [HEME] DAILYLAB CMP, RFLX TO IONIZED CA IF [CHEM] DAILYLAB MAGNESIUM [CHEM] DAILYLAB PHOSPHORUS [CHEM] DAILYLAB PT WITH INR [COAG] DAILYLAB 11/20/16 05:00 CBC - COMP BLD CT W/AUTO DIFF [HEME] DAILYLAB CMP, RFLX TO IONIZED CA IF [CHEM] DAILYLAB MAGNESIUM [CHEM] DAILYLAB PHOSPHORUS [CHEM] DAILYLAB PT WITH INR [COAG] DAILYLAB Plan Discussed with:: Patient, Family Time Spent: Greater than 60 minutes Subjective - Subjective Patient Reports: Other (Still agitated and delirious. Despite weaning off sedation patient not following commands.) Nursing Reports: Confused Objective Vital Signs: Vital Signs - 24 hr 11/14/16 11/14/16 11/14/16 20:06 21:18 21:27 Temperature 37.5 C 37.4 C Heart Rate 85 Heart Rate [ 87 87 Monitoring electrodes] Respiratory 17 20 Rate Blood Pressure 123/93 H 129/84 H [Left Brachial artery] O2 Saturation 99 98 11/14/16 11/14/16 11/14/16 22:00 23:12 23:13 Temperature Heart Rate 91 Heart Rate [ 84 115 H Monitoring electrodes] Respiratory 21 20 Rate Blood Pressure 125/77 143/83 H [Left Brachial artery] O2 Saturation 95 92 11/15/16 11/15/16 11/15/16 00:00 01:00 01:10 Temperature 37.0 C Heart Rate 88 Heart Rate [ 91 86 Monitoring electrodes] Respiratory 27 H 25 H Rate Blood Pressure 133/79 H 126/77 [Left Brachial artery] O2 Saturation 89 L 97 11/15/16 11/15/16 11/15/16 02:00 03:00 03:22 Temperature Heart Rate 86 Heart Rate [ 84 85 Monitoring electrodes] Respiratory 24 19 Rate Blood Pressure 123/76 141/81 H [Left Brachial artery] O2 Saturation 97 96 11/15/16 11/15/16 11/15/16 04:00 05:00 06:00 Temperature 36.6 C Heart Rate 82 Heart Rate [ 84 83 81 Monitoring electrodes] Respiratory 21 21 23 Rate Blood Pressure 125/78 131/81 H 120/68 [Left Brachial artery] O2 Saturation 98 97 95 11/15/16 11/15/16 11/15/16 07:00 07:43 08:00 Temperature 37.8 C H Heart Rate 107 H Heart Rate [ 80 113 H Monitoring electrodes] Respiratory 21 32 H Rate Blood Pressure 107/65 116/74 [Left Brachial artery] O2 Saturation 97 95 11/15/16 11/15/16 11/15/16 09:00 09:57 10:00 Temperature Heart Rate 91 Heart Rate [ 95 90 Monitoring electrodes] Respiratory 14 30 H Rate Blood Pressure 129/76 129/79 [Left Brachial artery] O2 Saturation 95 95 11/15/16 11/15/16 11/15/16 11:00 12:00 12:04 Temperature 37.1 C Heart Rate 98 Heart Rate [ 115 H 95 Monitoring electrodes] Respiratory 32 H 28 H Rate Blood Pressure 147/88 H 121/68 [Left Brachial artery] O2 Saturation 97 93 11/15/16 11/15/16 11/15/16 13:00 13:56 14:00 Temperature 38.0 C H Heart Rate 140 H Heart Rate [ 127 H 126 H Monitoring electrodes] Respiratory 26 H 24 Rate Blood Pressure 163/91 H 101/51 L [Left Brachial artery] O2 Saturation 92 92 11/15/16 11/15/16 11/15/16 15:00 16:00 16:34 Temperature 37.9 C H Heart Rate 143 H Heart Rate [ 95 100 Monitoring electrodes] Respiratory 26 H 25 H Rate Blood Pressure 118/69 143/102 H [Left Brachial artery] O2 Saturation 100 97 11/15/16 11/15/16 11/15/16 17:00 17:56 18:00 Temperature 37.8 C H 39.6 C H Heart Rate 106 H Heart Rate [ 116 H 131 H Monitoring electrodes] Respiratory 33 H 29 H Rate Blood Pressure 172/105 H 222/191 H [Left Brachial artery] O2 Saturation 94 11/15/16 19:00 Temperature 39.5 C H Heart Rate Heart Rate [ 152 H Monitoring electrodes] Respiratory 26 H Rate Blood Pressure 151/86 H [Left Brachial artery] O2 Saturation 96 Oxygen O2 Source Mechanical ventilator I&O (Last 24 Hrs): Intake and Output Totals x24h 11/13/16 11/14/16 11/15/16 23:59 23:59 23:59 Intake Total 3722 4180 2985 Output Total 2191 4162 3040 Balance 1531 18 -55 General: Moderate distress (tachypneic), Other (Not following commands, agitated , no purposeful movements) HEENT: Atraumatic, PERRLA, EOMI Neck: Supple, No JVD, No thyromegaly, +2 carotid pulse wo bruit, No LAD Lymphatic: no adenopathy Neuro: Disoriented, Other (Agitated) Cardiovascular: Normal S1, Normal S2, Other (Tachycardic) Respiratory: Wheezes (bilateral rhonchi, crackles, tachypnic), Rales, Rhonchi Abdomen: Normal bowel sounds, Soft, No tenderness Extremities: No clubbing, No cyanosis, No edema, Normal pulses Skin: No rashes, No breakdown - Results Results: Laboratory Results WBC 13.2 x10^3/uL (4.8-10.8) H 11/15/16 10:43 RBC 3.34 10^6/uL (4.20-5.40) L 11/15/16 10:43 Hgb 11.4 g/dL (12.0-16.0) L 11/15/16 10:43 Hct 34.1 % (37.0-47.0) L 11/15/16 10:43 MCV 102.0 fL (81.0-99.0) H 11/15/16 10:43 MCH 34.1 pg (27.0-31.0) H 11/15/16 10:43 MCHC 33.4 g/dL (32.0-36.0) 11/15/16 10:43 RDW 14.9 % (12.0-15.0) 11/15/16 10:43 Plt Count 161 10^3/uL (130-450) 11/15/16 10:43 MPV 10.7 fL (7.9-10.8) 11/15/16 10:43 Neut # 9.5 10^3/uL (1.5-6.6) H 11/15/16 10:43 Lymph # 1.6 10^3/uL (1.5-3.5) 11/15/16 10:43 Kimble # 1.9 10^3/uL (0.0-1.0) H 11/15/16 10:43 Eos # 0.2 10^3/uL (0.0-0.7) 11/15/16 10:43 Baso # 0.1 10^3/uL (0.0-0.1) 11/15/16 10:43 Absolute Nucleated RBC 0.02 x10^3/uL 11/15/16 10:43 Total Counted 100 11/13/16 13:45 Band Neuts % (Manual) 18 % (0-10) H 11/13/16 13:45 Neutrophils # (Manual) 6.4 10^3/uL (1.5-6.6) 11/13/16 13:45 Lymphocytes # (Manual) 1.6 10^3/uL (1.5-3.5) 11/13/16 13:45 Monocytes # (Manual) 1.4 10^3/uL (0.0-1.0) H 11/13/16 13:45 Eosinophils # (Manual) 0.1 10^3/uL (0-0.7) 11/13/16 13:45 Nucleated RBCs 0.1 /100WBC 11/15/16 10:43 Differential Comment MANUAL DIFFERENTIAL 11/13/16 13:45 Manual Slide Review Indicated 11/15/16 10:43 WBC Morphology 2+ VACUOLATION (NORMAL) 11/13/16 13:45 Platelet Estimate NORMAL (130-450,000) (NORMAL) 11/15/16 10:43 Platelet Morphology PLATELET CLUMPING (NORMAL) 11/15/16 10:43 RBC Morph Micro Appear NORMAL APPEARANCE (NORMAL) 11/15/16 10:43 PT 12.0 secs (9.9-12.6) 11/09/16 18:29 INR 1.1 (0.8-1.2) 11/09/16 18:29 Bld Gas Analysis Time 0548 11/15/16 05:30 Sample Site RIGHT RADIAL 11/15/16 05:30 Patient Temperature 101.3 CELSIUS 11/12/16 01:55 ABG pH 7.52 (7.35-7.45) H 11/15/16 05:30 ABG pCO2 34 mmHg (34-45) 11/15/16 05:30 ABG pO2 78 mmHg (80-100) L 11/15/16 05:30 ABG HCO3 27.1 mmol/L (22.0-26.0) H 11/15/16 05:30 ABG Total CO2 28.1 MMOL/L (21.0-29.0) 11/15/16 05:30 ABG O2 Saturation 96 % (94-98) 11/15/16 05:30 ABG Oximetry Spot Check 93 % 11/13/16 07:25 ABG Base Excess 4.2 mmol/L (-2.0-3.0) H 11/15/16 05:30 Dustin Test POSITIVE 11/15/16 05:30 VBG pH 7.522 (7.31-7.41) H 11/15/16 05:08 Ionized Calcium 1.06 mmol/L (1.15-1.33) L 11/15/16 05:08 Respiration Rate 16 b/min 11/15/16 05:30 Room Air Cancelled 11/11/16 01:55 O2 Delivery Device VENTILATOR 11/13/16 07:25 O2 Liters/Min Cancelled 11/11/16 01:55 Vent Mode SIMV 11/15/16 05:30 FiO2 0.60 11/15/16 05:30 Tidal Volume 450 mL 11/15/16 05:30 PEEP 5 cmH2O 11/15/16 05:30 Pressure Support Vent 12 cmH2O 11/15/16 05:30 EPAP Cancelled 11/11/16 01:55 IPAP Cancelled 11/11/16 01:55 Sodium 137 mmol/L (135-145) 11/15/16 10:43 Potassium 3.8 mmol/L (3.5-5.0) 11/15/16 10:43 Chloride 105 mmol/L (101-111) 11/15/16 10:43 Carbon Dioxide 23 mmol/L (21-32) 11/15/16 10:43 Anion Gap 9.0 (6-13) 11/15/16 10:43 BUN 5 mg/dL (6-20) L 11/15/16 10:43 Creatinine 0.4 mg/dL (0.4-1.0) 11/15/16 10:43 Estimated GFR (MDRD) 171 (>89) 11/15/16 10:43 Glucose 171 mg/dL (70-100) H 11/15/16 10:43 Calcium 8.7 mg/dL (8.5-10.3) 11/15/16 10:43 Ionized Calcium NO 11/15/16 10:43 Phosphorus 3.2 mg/dL (2.5-4.6) 11/15/16 10:43 Magnesium 1.8 mg/dL (1.7-2.8) 11/15/16 10:43 Total Bilirubin 0.8 mg/dL (0.2-1.0) 11/15/16 10:43 AST 83 IU/L (10-42) H 11/15/16 10:43 ALT 86 IU/L (10-60) H 11/15/16 10:43 Alkaline Phosphatase 99 IU/L (42-121) 11/15/16 10:43 Total Creatine Kinase 138 IU/L (22-269) 11/12/16 22:41 Total Protein 6.7 g/dL (6.7-8.2) 11/15/16 10:43 Albumin 2.9 g/dL (3.2-5.5) L 11/15/16 10:43 Globulin 3.8 g/dL (2.1-4.2) 11/15/16 10:43 Albumin/Globulin Ratio 0.8 (1.0-2.2) L 11/15/16 10:43 Prealbumin 12 mg/dL (18-45) L 11/14/16 06:06 Lipase 24 U/L (22-51) 11/08/16 21:59 TSH 2.38 uIU/mL (0.34-5.60) 11/08/16 21:59 Urine Color YELLOW 11/09/16 02:49 Urine Clarity CLEAR (CLEAR) 11/09/16 02:49 Urine pH 6.0 PH (5.0-7.5) 11/09/16 02:49 Ur Specific [place] <=1.005 (1.002-1.030) 11/09/16 02:49 Urine Protein NEGATIVE mg/dL (NEGATIVE) 11/09/16 02:49 Urine Glucose (UA) NEGATIVE mg/dL (NEGATIVE) 11/09/16 02:49 Urine Ketones NEGATIVE mg/dL (NEGATIVE) 11/09/16 02:49 Urine Occult Blood TRACE-LYSE (NEGATIVE) 11/09/16 02:49 Urine Nitrite NEGATIVE (NEGATIVE) 11/09/16 02:49 Urine Bilirubin NEGATIVE (NEGATIVE) 11/09/16 02:49 Urine Urobilinogen 0.2 (NORMAL) E.U./dL (NORMAL) 11/09/16 02:49 Ur Leukocyte Esterase NEGATIVE (NEGATIVE) 11/09/16 02:49 Ur Microscopic Review NOT INDICATED 11/09/16 02:49 Urine Culture Comments NOT INDICATED 11/09/16 02:49 Salicylates < 6.0 mg/dL 11/08/16 21:59 Urine Opiates Screen NEGATIVE (NEGATIVE) 11/09/16 02:49 Ur Oxycodone Screen NEGATIVE (NEGATIVE) 11/09/16 02:49 Urine Methadone Screen NEGATIVE (NEGATIVE) 11/09/16 02:49 Ur Propoxyphene Screen NEGATIVE (NEGATIVE) 11/09/16 02:49 Acetaminophen < 10 ug/mL (10-30) L 11/08/16 21:59 Ur Barbiturates Screen NEGATIVE (NEGATIVE) 11/09/16 02:49 Ur Tricyclics Screen NEGATIVE (NEGATIVE) 11/09/16 02:49 Ur Phencyclidine Scrn NEGATIVE (NEGATIVE) 11/09/16 02:49 Ur Amphetamine Screen NEGATIVE (NEGATIVE) 11/09/16 02:49 U Methamphetamines Scrn NEGATIVE (NEGATIVE) 11/09/16 02:49 U Benzodiazepines Scrn NEGATIVE (NEGATIVE) 11/09/16 02:49 Urine Cocaine Screen NEGATIVE (NEGATIVE) 11/09/16 02:49 U Cannabinoids Screen POSITIVE (NEGATIVE) H 11/09/16 02:49 Ethyl Alcohol 49.0 mg/dL 11/09/16 06:49
[2016-11-15] MEDS ORDERED: MIDAZOLAM 50 MG/10 ML VIAL ONE (20:43)
--- NOTE | 2016-11-15 20:58 | PROVIDER PROGRESS NOTE ---
Hospitalist Cross-cover Note - Cross-Cover Note Cross-Cover Note: Patient became increasingly hypoxic during the afternoon and persistently tachycardic with fevers. Ordered CTA of thorax to rule out PE and patient found to have bilateral PEs on CTA of thorax. Started on lovenox treatment dose.
[2016-11-15 21:53] VITALS: BP 117/85
[2016-11-16] MEDS ORDERED: VANCOMYCIN 1.25 GM/NS 250 ML 250 ML IV SCH (02:00)
--- NOTE | 2016-11-16 10:44 | DISCHARGE SUMMARY ---
DATE OF ADMISSION: 11/09/2016 DATE OF DISCHARGE: 11/15/2016 DISCHARGE DIAGNOSES 1. Acute respiratory failure with hypoxemia. 2. Ventilator associated pneumonia. 3. Acute encephalopathy. 4. Alcohol abuse. 5. Protein-calorie malnutrition. 6. Hypokalemia. 7. Pulmonary emboli. 8. Alcohol withdrawal. MEDICATIONS ON TRANSFER TO [facility] 1. Cefepime. 2. Vancomycin. 3. Flagyl. 4. Haldol. 5. Precedex. 6. Ativan. 7. Nicotine patch. 8. D5.45, normal saline with 20 mEq of potassium. HOSPITAL COURSE: The patient is a 45-year-old female whose history is obtained from the . She has a history of DVTs, alcohol abuse, anxiety and depression. She had an admission many years ago whe n she was homeless and required treatment for exposure. She is from her and now jen es with a significant other for the last 12-18 months. The history is obtained from the significant o ther. She was very upset over an argument with her ex- and the patient told him to call 911 be cause she took all of her medications to kill herself. She was very agitated, requiring restraints an d yelling continuously for 10-11 hours. She also has a known history of severe alcohol abuse. Emergen cy room management included various sedatives for treatment and she was eventually sedated. However, it was felt that she may become over-sedated and became apneic and required intubation. As such, she was admitted to the ICU service under hospitalist care, currently intubated and sedated with Versed a nd propofol. Significant other also stated that the patient is noncompliant with any of her medicatio ns and he does not know her medication list. Urine tox screen showed an elevated alcohol level and po sitive for cannabis. No other toxicity. HOSPITAL COURSE: The patient was felt to be apneic secondary to over-sedation. Her initial chest x-ra y when she was evaluated in the emergency room was negative. Subsequent chest x-rays after intubation showed bibasilar infiltrates that occurred after intubation and continued to worsen throughout her s padilla. She was very cachectic and agitated, likely secondary to alcohol withdrawal. She was treated emp irically with cefepime and was stable on 40% FIO2 for several days. The infiltrates were felt to be v entilator-associated pneumonia. Acute encephalopathy with acute alcohol abuse and acute alcohol withd cecelia, as well as whatever medication she may have taken, even though tox screens were all negative. Every time sedation was turned down, she became very agitated, hypertensive and tachycardic, which wa s felt to be in line with alcohol withdrawal. No true drug withdrawal. She was treated with a banana bag and protein-calorie malnutrition was treated with NG tube feedings with Jevity [address] of the head at admission was negative. Electrolyte abnormalities in the form of hypokalemia were lauri dyllan with replacement therapy. DVT prophylaxis was ongoing with SCDs. On the day of transfer to [place], the patient was felt to be slowly improving. Her FIO2 remained stable and a chest x-ray showed improving infiltrates. However, in the late morning, early afternoon, she began spiking temperatures to 39. Consistently more tachycardic in the one-teens. Blood pressure was intermittently hypertensive between 150-220 systolic. Respiratory rate was up into the 27s, 34s, and FIO2 was increased to 100% to maintain an O2 saturation of 94%. MAP pressures were not high, tid al volume was maintained at 450. Blood gas on the morning of transfer was 7.52, pCO2 34, pO2 78. This was on SIMV with an FIO2 of 60%. Antibiotics were changed suspecting that pneumonia was worse and because of hypoxia. CT pulmonary ang iogram was obtained and she has multiple pulmonary emboli with 1 large clot in the right upper lobe. This patient has now been here for 5 days. We are a critical access hospital and feel that we have ex ceeded our limits with regards to provide adequate care for this patient who has not responded to our treatment and has worsened. As such, we asked for transfer to an outside facility and we approached [facility]. Dr. Maryuri Dumont, graciously accepted the patient in transfer after discussion. She is transferred in guarded condition, still on a ventilator, still with tube feedings on a Versed dri p of Precedex. Before transfer, she was paralyzed because of continued intermittent agitation in spit e of drips. At the time of transfer, temperature was 38.2, blood pressure 117/85. Her blood cultures have been negative. MRSA cultures of nares have been negative twice. Sputum aspirate showed normal fl ora. Today's white cell count has come up from 6 to 13. Hemoglobin 11.4 and stable. Liver enzymes hav e improved in that she was 147 on admission. AST, today she is 83. ALT was 116 on admission, now 86. Protein status improved from a total protein that was initially high at 8.8 with dehydration and now 6.7. Albumin was 2.6 and now 2.9. JOB #: [id number] EXT JOB #:[id number]
[2016-11-16] MEDS ORDERED: WARFARIN 5 MG TABLET PO SCH (14:00)
== END 2016-11-15 21:45 | disposition short-term general hospital (02) | DRG 207 ==
LOC: EDBD → EDUNIT# → ED 21:17 → ICU 11-09 15:53
PROVIDERS: ADMIT Internal Medicine; ATTEND Specialist
PROC: 5A1955Z Respiratory Ventilation, Greater than 96 Consecutive Hours (ICD-10-PCS; principal; 2016-11-09)
DX: J96.01 Acute respiratory failure with hypoxia (principal); F10.121 Alcohol abuse with intoxication delirium; R45.851 Suicidal ideations; I26.99 Other pulmonary embolism without acute cor pulmonale; I10 Essential (primary) hypertension; E11.9 Type 2 diabetes mellitus without complications; E03.9 Hypothyroidism, unspecified; J95.851 Ventilator associated pneumonia; E46 Unspecified protein-calorie malnutrition; F17.200 Nicotine dependence, unspecified, uncomplicated; Z96.659 Presence of unspecified artificial knee joint; F10.231 Alcohol dependence with withdrawal delirium; Z68.1 Body mass index [BMI] 19.9 or less, adult; T42.75XA Adverse effect of unspecified antiepileptic and sedative-hypnotic drugs, initial encounter; Y92.238 Other place in hospital as the place of occurrence of the external cause; E87.6 Hypokalemia; E86.0 Dehydration; F19.10 Other psychoactive substance abuse, uncomplicated; F32.9 Major depressive disorder, single episode, unspecified; F41.9 Anxiety disorder, unspecified; Z78.1 Physical restraint status; Z91.14 Patient's other noncompliance with medication regimen; Z86.718 Personal history of other venous thrombosis and embolism; Z72.0 Tobacco use; Z88.0 Allergy status to penicillin
CPT/HCPCS: 31500; 36415; 36600; 51701; 70450; 71010; 71275; 80048; 80053; 80306; 80307; 80320; 80329; 81001; 81003; 82040; 82310; 82330; 82550; 82803; 83690; 83735; 84100; 84132; 84134; 84443; 84484; 85025; 85610; 87040; 87070; 87081; 87086; 87150; 87205; 87640; 93005; 94002; 94003; 94640; 96372; 96374; 96375; 96376; 99285; 99291

== ENCOUNTER 2017-04-11 15:23 | Outpatient (CLI) | payer MEDICARE, MEDICAID | END 2017-04-11 15:24 | disposition EMS.NT | LOC: EMS 15:23 | PROVIDERS: ATTEND Surgery | DX: R06.02 Shortness of breath (principal) ==

== ENCOUNTER 2018-10-13 14:52 | Emergency (ER) | payer MEDICARE, MEDICAID ==
[2018-10-13 14:59] VITALS: BP 103/59
[2018-10-13] MEDS ORDERED: IBUPROFEN 800 MG TABLET PO STA (15:03)
[2018-10-13] MEDS ORDERED: oxyCODONE 5 MG TABLET PO STA (15:03)
[2018-10-13] MEDS ORDERED: SULFAMETH/TRIMETH DS 800/160 MG TABLET PO STA (15:03)
[2018-10-13] MEDS ORDERED: BUFFERED LIDOCAINE 10 ML SYRINGE SUBQ STA (15:03)
--- NOTE | 2018-10-13 15:05 | ED Physician Documentation ---
PD HPI SKIN - Stated complaint Stated Complaint: R ARM SWELLING - Chief complaint Chief Complaint: Wound - History obtained from History obtained from: Patient - History of Present Illness Timing - onset: Other (47-year-old woman with history of alcoholism, has not had a drink in about 3 months presents with abscesses in both axilla, right worse than left with a low-grade fever last night. No history of MRSA per her. No longer on warfarin.) Review of Systems Constitutional: reports: Fever, Chills Cardiac: reports: Reviewed and negative GI: denies: Abdominal Pain, Nausea, Vomiting : reports: Reviewed and negative PD PAST MEDICAL HISTORY - Past Medical History Cardiovascular: Hypertension Respiratory: Shortness of breath Endocrine/Autoimmune: Type 2 diabetes, HyPOthyroidism GI: None UX DESIGN LEAD: None : None HEENT: None Psych: Depression, Anxiety Musculoskeletal: None Derm: None - Past Surgical History Past Surgical History: Yes Ortho: Knee replacement /UX DESIGN LEAD: Hysterectomy - Present Medications Home Medications: Ambulatory Orders Medication Instructions Recorded Confirmed Propranolol [Inderal] 120 mg PO DAILY 04/04/16 01/31/17 Baclofen 20 mg ORAL TID 11/08/16 01/31/17 Ibuprofen 600 mg ORAL PRN PRN 11/08/16 01/31/17 Levothyroxine [Synthroid] 75 mcg ORAL DAILY 11/08/16 01/31/17 Albuterol Sulf [Ventolin Hfa 2 puffs INH Q4H PRN 11/09/16 01/31/17 Inhaler] Buspirone HCl 20 mg PO TID 01/31/17 01/31/17 Mirtazapine 15 mg PO DAILY 01/31/17 01/31/17 Warfarin [Coumadin] 0 mg PO DAILY 01/31/17 01/31/17 Ziprasidone HCl [Geodon] 20 mg PO BID 01/31/17 01/31/17 Oxycodone HCl/Acetaminophen 1 - 2 each PO Q6H PRN #10 tablet 10/13/18 [Percocet 5-325 mg Tablet] Sulfamethoxazole/Trimethoprim 1 each PO BID #14 tablet 10/13/18 [Sulfamethoxazole-Tmp Ds Tablet] - Allergies Allergies/Adverse Reactions: Allergies Allergy/AdvReac Type Severity Reaction Status Date / Time Penicillins Allergy Mild Itching Verified 04/10/16 14:29 adhesive Allergy Itching Verified 09/06/16 09:59 - Social History Does the pt smoke?: Yes Smoking Status: Current every day smoker Does the pt drink ETOH?: Yes Does the pt have substance abuse?: No - Immunizations Immunizations are current?: Yes - POLST Patient has POLST: No PD ED PE NORMAL - Vitals Vital signs reviewed: Yes - General General: Alert and oriented X 3, No acute distress - Extremities Extremities: Other (There is a golf ball sized abscess in the right axilla with significant surrounding cellulitis. 2 small nontender abscesses the size of a pea each in the left axilla without cellulitis.) - Neuro Neuro: Alert and oriented X 3, Normal speech Results - Vitals Vitals: Vital Signs - 24 hr 10/13/18 14:56 Temperature 37.2 C Heart Rate 81 Respiratory 18 Rate Blood Pressure 103/59 L O2 Saturation 99 Oxygen O2 Source Room air Procedures - Abscess I&D (location) L axilla Preparation: Lidocaine 1% Incision: Needle aspiration (2 v small), Purulent drainage Other: Pt tolerated well, Dressing applied, Antibiotic prescribed R axilla Preparation: Betadine, Lidocaine 1% Incision: Incised with scalpel, Purulent drainage, Loculations broken, Culture obtained Other: Pt tolerated well, Dressing applied, Antibiotic prescribed Departure - Departure Disposition: 01 Home, Self Care Clinical Impression: Abscess Condition: Good Record reviewed to determine appropriate education?: Yes Health Concerns: abscesses Plan of Treatment: We are performing a wound culture, the results should be done in 48-72 hours. If antibiotic change is necessary we will call you. Return if worse in the meantime, especially if you develop increased pain, fevers, cannot keep down the medication. Otherwise follow-up with your physician in approximately 2-3 days. Care Goals: Do not drink or drive while taking narcotic pain medication. Note that many narcotic pain relievers also contain Tylenol/acetaminophen. Please ensure that your total dose of acetaminophen from all sources does not exceed 3 g (3000 mg) per day. You may get constipated while on this medication. Take a stool softener such as Colace twice a day while you are on it. Also add an [id number] laxative such as senna or MiraLAX on any day that you do not have a bowel movement. If you received a narcotic pain medication or sedative while in the emergency department, do not drive for the next 24 hours. Assessment: as above Instructions: ED Abscess IandD Prescriptions: Oxycodone HCl/Acetaminophen [Percocet 5-325 mg Tablet] 1 - 2 each PO Q6H PRN #10 tablet PRN Reason: pain Sulfamethoxazole/Trimethoprim [Sulfamethoxazole-Tmp Ds Tablet] 1 each PO BID #14 tablet
== END 2018-10-13 15:44 | disposition home or self-care (01) ==
LOC: ED 14:52
DX: L02.412 Cutaneous abscess of left axilla (principal); L02.411 Cutaneous abscess of right axilla; L03.111 Cellulitis of right axilla; I10 Essential (primary) hypertension; E03.9 Hypothyroidism, unspecified; E11.9 Type 2 diabetes mellitus without complications; F17.200 Nicotine dependence, unspecified, uncomplicated; Z79.84 Long term (current) use of oral hypoglycemic drugs; Z96.659 Presence of unspecified artificial knee joint; Z79.01 Long term (current) use of anticoagulants
CPT/HCPCS: 10060; 10160; 87070; 87181; 87205; 99283; A9270

== ENCOUNTER 2019-05-20 08:00 | Outpatient (CLI) | payer MEDICARE, MEDICAID ==
[2019-05-20 17:26] LABS: CALCIUM 9.5 mg/dL (8.5-10.3); CREATININE 0.7 mg/dL (0.4-1.0)
[2019-05-20 17:33] LABS: CREATININE,URINE 44.1 mg/dL; MICROALBUM/CREATININE RATIO,UR 4.5 ug/mg (<30.0); MICROALBUMIN,URINE 0.2 mg/dL (0-300.0)
[2019-05-20 17:36] LABS: HB2 TOTAL 13.8 g/dL; HEMOGLOBIN A1C 0.54 g/dL; HEMOGLOBIN A1C % 5.7 % (4.6-6.2)
== END 2019-05-20 23:59 | disposition home or self-care (01) ==
LOC: LAB.S 08:00
PROVIDERS: ATTEND Physician Assistant
DX: E11.9 Type 2 diabetes mellitus without complications (principal)
CPT/HCPCS: 36415; 80048; 82043; 82570; 83036

== ENCOUNTER 2022-01-31 08:00 | Outpatient (CLI) | payer MEDICARE, MEDICAID | END 2022-01-31 23:59 | disposition home or self-care (01) | LOC: LAB.S 08:00 | PROVIDERS: ATTEND Physician Assistant Medical | DX: L03.115 Cellulitis of right lower limb (principal) | CPT/HCPCS: 87070; 87181; 87205 ==

== ENCOUNTER 2022-07-04 14:30 | Outpatient (CLI) | payer MEDICARE, MEDICAID ==
--- NOTE | 2022-07-04 16:12 | XRAY Report ---
PROCEDURE: Shoulder 3 View LT INDICATIONS: PAIN IN LEFT SHOULDER TECHNIQUE: 3 views of the shoulder were acquired. COMPARISON: None. 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 Ostial lysis noted in the distal left clavicle. No suspicious bony lesions. Visualized ribs appear intact. Soft tissues: No suspicious soft tissue calcifications. 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 Reviewed by: Yancy Scanlon MD, PhD on 07/04/2022 4:10 PM PDT Approved by: Yancy Scanlon MD, PhD on 07/04/2022 4:10 PM PDT Station ID: [id number]
== END 2022-07-04 23:59 | disposition home or self-care (01) ==
LOC: DI.S 14:30
PROVIDERS: ATTEND Physician Assistant
DX: M24.412 Recurrent dislocation, left shoulder (principal)

== ENCOUNTER 2022-11-02 11:35 | Emergency (ER) | payer MEDICARE, MEDICAID ==
[2022-11-02 12:08] LABS: BASOPHILS # (AUTO) 0.1 10^3/uL (0.0-0.1); BASOPHILS % (AUTO) 0.7 %; EOSINOPHILS # (AUTO) 0.1 10^3/uL (0.0-0.7); EOSINOPHILS % (AUTO) 1.2 %; HCT - HEMATOCRIT 38.9 % (37.0-47.0); HGB - HEMOGLOBIN 12.6 g/dL (12.0-16.0); LYMPHOCYTES # (AUTO) 2.8 10^3/uL (1.5-3.5); LYMPHOCYTES % (AUTO) 37.1 %; MEAN CORPUSCULAR HGB CONC 32.4 g/dL (32.0-36.0); MEAN CORPUSCULAR VOLUME 95.8 fL (81.0-99.0); MEAN PLATELET VOLUME 10.2 fL (7.9-10.8); MONOCYTES # (AUTO) 0.6 10^3/uL (0.0-1.0); MONOCYTES % (AUTO) 7.3 %; NEUTROPHILS # (AUTO) 4.1 10^3/uL (1.5-6.6); NEUTROPHILS % (AUTO) 53.6 %; PLT - PLATELET COUNT 297 10^3/uL (130-450); RED BLOOD COUNT 4.06 10^6/uL (4.20-5.40); RED CELL DISTRIBUTION WIDTH 13.1 % (12.0-15.0); WHITE BLOOD COUNT 7.7 x10^3/uL (4.8-10.8)
[2022-11-02 12:23] LABS: ALBUMIN 4.1 g/dL (3.2-5.5); ALBUMIN/GLOBULIN RATIO 1.4 (1.0-2.2); BILIRUBIN,TOTAL 0.4 mg/dL (0.2-1.0); CALCIUM 9.4 mg/dL (8.5-10.3); CREATININE 0.6 mg/dL (0.6-1.3); POTASSIUM 4.3 mmol/L (3.5-4.5); TOTAL PROTEIN 7.1 g/dL (6.4-8.9)
--- NOTE | 2022-11-02 12:38 | ED Physician Documentation ---
PD HPI CHEST PAIN - Stated complaint Stated Complaint: CHEST PX,SOA - Chief complaint Chief Complaint: Cardiac - History obtained from History obtained from: Patient - History of Present Illness Timing - onset: How many days ago (2) Timing - onset during: Light activity (She states she tripped and fell forward onto her left chest/abdomen and also struck her chin. She has bruising of her chin. Pain in the left abdomen/ribs wrapping around to the back continues.) Timing - duration: Days (2) Timing - details: Abrupt onset, Still present Quality: Aching, Sharp, Pain Location: Left chest, Other (left upper abd) Radiation: Back (wraps around to left flank/lower ribs area.), Abdominal. No: Neck Improved by: Rest. No: Other medication (has been taking Ibuprofen without notable improvement.) Worsened by: Inspiration, Movement, Palpation Associated symptoms: Shortness of air, Nausea. No: Vomiting, Feeling faint / dizzy, Palpitations Similar symptoms before: Has not had sx before Recently seen: Not recently seen Review of Systems Constitutional: denies: Fever, Chills Respiratory: denies: Dyspnea, Cough GI: reports: Abdominal Pain, Nausea. 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 AGENT: None : None HEENT: None Psych: Depression, Anxiety Musculoskeletal: None Derm: None - Past Surgical History Past Surgical History: Yes Ortho: Knee replacement /AT HOME INDEPENDENT CALL CENTER AGENT: Hysterectomy - Present Medications Home Medications: Ambulatory Orders Medication Instructions Recorded Confirmed Propranolol [Inderal] 120 mg PO DAILY 04/04/16 01/31/17 Baclofen 20 mg ORAL TID 11/08/16 01/31/17 Ibuprofen 600 mg ORAL PRN PRN 11/08/16 01/31/17 Levothyroxine [Synthroid] 75 mcg ORAL DAILY 11/08/16 01/31/17 Albuterol Sulf [Ventolin Hfa 2 puffs INH Q4H PRN 11/09/16 01/31/17 Inhaler] Buspirone HCl 20 mg PO TID 01/31/17 01/31/17 Mirtazapine 15 mg PO DAILY 01/31/17 01/31/17 Warfarin [Coumadin] 0 mg PO DAILY 01/31/17 01/31/17 ziprasidone HCL [Geodon] 20 mg PO BID 01/31/17 01/31/17 Oxycodone HCl/Acetaminophen 1 - 2 each PO Q6H PRN #10 tablet 10/13/18 [Percocet 5-325 mg Tablet] Sulfamethoxazole/Trimethoprim 1 each PO BID #14 tablet 10/13/18 [Sulfamethoxazole-Tmp Ds Tablet] Docusate Sodium 100Mg Capsule 100 mg PO DAILY #20 cap 11/02/22 [Colace 100Mg Capsule] HYDROcod/ACETAM 5/325 [[place] 5/325] 1 ea PO Q6H PRN #18 tablet 11/02/22 Meloxicam [Mobic] 7.5 mg PO BID 10 Days #20 tablet 11/02/22 Ondansetron Odt [Zofran] 4 mg TL Q6H PRN #10 tablet 11/02/22 - Allergies Allergies/Adverse Reactions: Allergies Allergy/AdvReac Type Severity Reaction Status Date / Time Penicillins Allergy Mild Itching Verified 04/10/16 14:29 adhesive Allergy Itching Verified 09/06/16 09:59 - Social History Does the pt smoke?: Yes Smoking Status: Current every day smoker Does the pt drink ETOH?: Yes Does the pt have substance abuse?: No - Immunizations Immunizations are current?: Yes - POLST Patient has POLST: No PD ED PE NORMAL - Vitals Vital signs reviewed: Yes - General General: Alert and oriented X 3, Well developed/nourished - HEENT HEENT: Atraumatic, Other (bruising left chin without tenderness nor deformity. Normal occlusion of teeth. ) - Neck Neck: Supple, no meningeal sign, No adenopathy - Cardiac Cardiac: RRR, No murmur - Respiratory Respiratory: No respiratory distress, Clear bilaterally - Abdomen Abdomen: Normal bowel sounds, Soft, Non distended, No organomegaly, Other (tender left upper abd/lower chest, ribs without deformity. ) - Derm Derm: Normal color, Warm and dry - Extremities Extremities: Normal ROM s pain - Neuro Neuro: Alert and oriented X 3, No motor deficit, Normal speech Results - Vitals Vitals: Oxygen O2 Source Room air - Labs Labs: Laboratory Tests 11/02/22 11/02/22 11/02/22 12:04 12:04 12:04 WBC 7.7 RBC 4.06 L Hgb 12.6 Hct 38.9 MCV 95.8 MCH 31.0 MCHC 32.4 RDW 13.1 Plt Count 297 MPV 10.2 Neut # (Auto) 4.1 Lymph # (Auto) 2.8 [place] # (Auto) 0.6 Eos # (Auto) 0.1 Baso # (Auto) 0.1 Absolute Nucleated RBC 0.00 Nucleated RBC % 0.0 Sodium 137 Potassium 4.3 Chloride 104 Carbon Dioxide 30 Anion Gap 3.0 L BUN 12 Creatinine 0.6 Estimated GFR (MDRD) 105 Glucose 97 Calcium 9.4 Total Bilirubin 0.4 AST 17 ALT 17 Alkaline Phosphatase 76 Troponin I High Sens 2.8 Total Protein 7.1 Albumin 4.1 Globulin 3.0 Albumin/Globulin Ratio 1.4 Lipase 6 L PD Medical Decision Making - ED course Complexity details: re-evaluated patient (She is having considerably improved pain after some IV fluids, Toradol, Dilaudid.) Reviewed Lab Results: The patient has normal blood count and chemistry panel. In particular lipase and LFTs are normal. White count is normal. She did have a chest x-ray initially which had concern for some density in the left upper lobe and some possible rib bony erosions. Radiologist recommended a CT scan. Her abdominal and chest tenderness is more in the lower ribs to upper abdomen area. As such I did a CT of the chest and abdomen pelvis to evaluate not only the current symptoms but also the upper left lobe findings. Subsequently the CT scans did not show any lung or bony abnormalities in the chest area. I talked with the radiologist and he presumes a just faults shadows noted on the plain film. The CT of the abdomen did not show any acute abnormalities. I presume her pain is musculoskeletal related to the recent fall. We can try different anti-inflammatory and add an Zofran for nausea and Tylenol for pain every 4-6 hours. I wrote for hydrocodone to use for worse pain. She has a remote history of blood clots. She has not been on anticoagulants for several years. Departure - Departure Disposition: 01 Home, Self Care Clinical Impression: Left sided abdominal pain, History of recent fall Condition: Stable Record reviewed to determine appropriate education?: Yes Prescriptions: Docusate Sodium 100Mg Capsule [Colace 100Mg Capsule] 100 mg PO DAILY #20 cap Meloxicam [Mobic] 7.5 mg PO BID 10 Days #20 tablet HYDROcod/ACETAM 5/325 [[place] 5/325] 1 ea PO Q6H PRN #18 tablet PRN Reason: Pain Ondansetron Odt [Zofran] 4 mg TL Q6H PRN #10 tablet PRN Reason: Nausea / Vomiting Comments: Your blood test as well as the chest x-ray and CT scans did not show any obvious acute abnormalities. No signs of organ injury, rib fractures, lung injury etc. Obviously there is still pain in the area and I presume its more musculoskeletal pain related injury from the fall. As such I would expect it to improve with continued time and can be aided by anti-inflammatories, activity level, and treat symptoms with nausea medicine and pain medicine. Also add a stool softener daily for the next week or 2 to reduce the chance of constipation from the medicines. I sent your prescriptions to [facility] in [place]. Follow-up with your primary care if not really improved over the next several days and resolved by 4 to 6 days. I am prescribing a short course of narcotic pain medication for you. These are potentially dangerous and addictive medications that should be used carefully. These medications may constipate you. Take an ibsd-tyk-jewhpry stool softener such as docusate twice daily with plenty of water while taking these medications. If you go 24 hours without a bowel movement, take ynxo-jgc-kjojxmr MiraLAX, per package instructions. Do not drink or drive while taking these medications. If you received narcotic or sedating medications while in the emergency department do not drive for 24 hours. Store this medication in a safe, secure place and out of reach of children. It is a violation of federal law to give or sell this medication to another person or to use in a manner other than prescribed. The ED will not refill narcotic prescriptions, including prescriptions lost or stolen. You can dispose of unwanted medications at the [facility]'s office or at several pharmacies such as [facility]. Forms: PCP List Discharge Date/Time: 11/02/22 15:24
--- NOTE | 2022-11-02 12:54 | XRAY Report ---
PROCEDURE: Chest 1 View X-Ray INDICATIONS: Chest pain TECHNIQUE: One view of the chest was acquired. COMPARISON: CT angiogram of the chest dated 11/15/2016. FINDINGS: Surgical changes and devices: None. Lungs and pleura: There is asymmetric increased density in the left apex with destructive change in the left third posterior lateral rib. Possible pancreas tumor. Mediastinum: Mediastinal contours appear normal. Heart size is normal. Bones and chest wall: Destructive change in the left posterior lateral third rib. Overlying soft tis sues appear unremarkable. IMPRESSION: Question pancreas tumor, left apex with associated rib destruction. Comment: Recommend CT chest with contrast. Above discussed with Dr. David at the time of dictation. Reviewed by: Abbe Ca MD on 11/02/2022 12:53 PM PDT Approved by: Abbe Ca MD on 11/02/2022 12:53 PM PDT Station ID: [id number]
[2022-11-02] MEDS ORDERED: SODIUM CHLORIDE 0.9% 1,000 ML IV STA (13:08)
[2022-11-02] MEDS ORDERED: ONDANSETRON 4 MG/2 ML VIAL IVP STA (13:08)
[2022-11-02] MEDS ORDERED: HYDROmorphone 1 MG/ML CARPUJECT IVP STA (13:09)
[2022-11-02] MEDS ORDERED: iohexoL-300 100 ML VIAL ONE (13:21)
[2022-11-02] MEDS ORDERED: iohexoL-300 100 ML VIAL IVP ONE (14:26)
--- NOTE | 2022-11-02 14:44 | CT Report ---
PROCEDURE: CHEST W INDICATIONS: left chest/upper abd pain CONTRAST: Omni 300, 100ml TECHNIQUE: After the administration of intravenous contrast, 1 mm axial images were acquired from the pulmonary apices through the posterior costophrenic angles. Axial 5 mm soft tissue kernel reconstructions were performed as well as 8 mm axial MIP and coronal and sagittal 5 mm reformations. For radiation dose reduction, the following was used: automated exposure control, adjustment of mA and/or kV according to patient size. COMPARISON: Chest film from today,, CTA chest dated 11/15/2016 FINDINGS: Image quality: Excellent. Lungs and pleura: There is no left apical mass. The previously markedly abnormal posterior lateral le ft third rib actually represented a subacute fracture. It is now a chronic nonunited mildly displaced fracture. No pleural effusions. No pneumothorax. There are multiple very small nodular densities in the lungs. Findings include a 3 mm ill-defined nodule in the posterior subpleural right upper lobe o n image 58/3, a fissural nodular density measuring 3 mm in the left upper chest on image 59/3, a calc ified granuloma in the left upper lobe on image 135/3, a thrill millimeter noncalcified left lower lo be pulmonary nodule on image 208/3, and a 2 mm noncalcified pulmonary nodule in the right upper lobe on image 80/3.. Mediastinum: Heart size is normal. No pericardial effusion. No large vessel abnormality. No mediastin al adenopathy by size criteria. Chest wall and lower neck: Thyroid is unremarkable. No axillary or supraclavicular adenopathy by size . Bones: No aggressive osseous abnormality. Chronic mild L2 compression. Upper Abdomen: Unremarkable. IMPRESSION: 1. There is no finding suspicious for malignancy. 2. No acute pulmonary process. 3. Chronic granulomatous disease. 4. Scattered 3 mm noncalcified pulmonary nodules. Comment: If this patient has risk factors for malignancy, consider repeat CT chest in 12 months. Reviewed by: Abbe Ca MD on 11/02/2022 2:42 PM PDT Approved by: Abbe Ca MD on 11/02/2022 2:42 PM PDT Station ID: [id number]
--- NOTE | 2022-11-02 14:54 | CT Report ---
PROCEDURE: ABDOMEN/PELVIS W INDICATIONS: upper left abd pain to chest CONTRAST: Omni 300, 100ml TECHNIQUE: After the administration of intravenous contrast, 5 mm thick sections acquired from the diaphragms to the symphysis. 5 mm thick coronal and sagittal reformats were acquired. For radiation dose reducti on, the following was used: automated exposure control, adjustment of mA and/or kV according to robert ent size. COMPARISON: Chest CT from today FINDINGS: Image quality: Excellent. Lung bases and heart: Unremarkable. Liver: No solid mass. Gallbladder and biliary tree: Contracted, unremarkable Spleen: No splenomegaly. Pancreas: No pancreatic ductal dilation. Adrenals: No adrenal nodule. Kidneys and ureters: No hydronephrosis. No renal cystic lesion which requires follow up. No solid mas s. Bowel and peritoneum: No bowel distension. No pathologic free fluid. Lymph nodes: No central or retroperitoneal adenopathy. Vessels: No infrarenal aortic aneurysm. Atherosclerotic calcifications involving the aorta and iliacs . PELVIS Reproductive organs: Uterus is surgically absent. Bladder: No abnormal wall thickening, accounting for underdistension. Pelvic lymph nodes: No pelvic adenopathy by size criteria. Bones: No aggressive osseous abnormality. Old L2 compression. Other: No significant ventral or inguinal hernia. IMPRESSION: 1. No acute abdominal process. 2. Atherosclerosis. 3. Old L2 compression fracture. Reviewed by: Abbe Ca MD on 11/02/2022 2:52 PM PDT Approved by: Abbe Ca MD on 11/02/2022 2:52 PM PDT Station ID: [id number]
[2022-11-02 15:08] VITALS: BP 126/85
== END 2022-11-02 15:24 | disposition home or self-care (01) ==
LOC: ED 11:35
DX: R10.9 Unspecified abdominal pain (principal); S00.83XA Contusion of other part of head, initial encounter; W01.0XXA Fall on same level from slipping, tripping and stumbling without subsequent striking against object, initial encounter; F17.200 Nicotine dependence, unspecified, uncomplicated
CPT/HCPCS: 36415; 71045; 71260; 74177; 80053; 83690; 84484; 85025; 93005; 96374; 99284; J1170; Q9967

== ENCOUNTER 2022-12-18 15:53 | Emergency (ER) | payer MEDICARE, MEDICAID ==
[2022-12-18 16:04] VITALS: O2SAT 100
[2022-12-18 17:26] LABS: BASOPHILS % (AUTO) 0.5 %; EOSINOPHILS # (AUTO) 0.1 10^3/uL (0.0-0.7); HCT - HEMATOCRIT 38.2 % (37.0-47.0); HGB - HEMOGLOBIN 12.9 g/dL (12.0-16.0); LYMPHOCYTES # (AUTO) 2.7 10^3/uL (1.5-3.5); LYMPHOCYTES % (AUTO) 33.3 %; MEAN CORPUSCULAR HEMOGLOBIN 31.2 pg (27.0-31.0); MEAN CORPUSCULAR HGB CONC 33.8 g/dL (32.0-36.0); MEAN CORPUSCULAR VOLUME 92.5 fL (81.0-99.0); MEAN PLATELET VOLUME 9.7 fL (7.9-10.8); MONOCYTES # (AUTO) 0.6 10^3/uL (0.0-1.0); NEUTROPHILS # (AUTO) 4.7 10^3/uL (1.5-6.6); PLT - PLATELET COUNT 388 10^3/uL (130-450); RED BLOOD COUNT 4.13 10^6/uL (4.20-5.40); RED CELL DISTRIBUTION WIDTH 12.7 % (12.0-15.0); WHITE BLOOD COUNT 8.1 x10^3/uL (4.8-10.8)
[2022-12-18 17:40] LABS: ALBUMIN 4.2 g/dL (3.2-5.5); ALBUMIN/GLOBULIN RATIO 1.4 (1.0-2.2); BILIRUBIN,TOTAL 0.6 mg/dL (0.2-1.0); CALCIUM 9.6 mg/dL (8.5-10.3); CREATININE 0.8 mg/dL (0.6-1.3); POTASSIUM 3.6 mmol/L (3.5-4.5); TOTAL PROTEIN 7.3 g/dL (6.4-8.9)
--- NOTE | 2022-12-18 19:29 | ED Physician Documentation ---
PD HPI SKIN - Stated complaint Stated Complaint: RASH - Chief complaint Chief Complaint: Wound - History obtained from History obtained from: Patient - Additional information Additional information: 52-year-old female presents for a wound on her body. She states that for the last 3 to 4 days she has had an itching rash all over her body. She has been trying to put Benadryl cream on it but it does not help. Denies fevers, chills, amphetamine use, insect bites Review of Systems Constitutional: denies: Fever, Chills Cardiac: denies: Chest pain / pressure, Palpitations, Calf pain Respiratory: denies: Dyspnea, Cough GI: denies: Abdominal Pain, Nausea, Vomiting Skin: reports: Rash. 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 : None HEENT: None Psych: Depression, Anxiety Musculoskeletal: None Derm: None - Past Surgical History Past Surgical History: Yes Ortho: Knee replacement /LEAD WEB DEVELOPER: Hysterectomy - Present Medications Home Medications: Ambulatory Orders Medication Instructions Recorded Confirmed Propranolol [Inderal] 120 mg PO DAILY 04/04/16 12/18/22 Ibuprofen 600 mg ORAL PRN PRN 11/08/16 12/18/22 Levothyroxine [Synthroid] 75 mcg ORAL DAILY 11/08/16 12/18/22 Albuterol Sulf [Ventolin Hfa 2 puffs INH Q4H PRN 11/09/16 12/18/22 Inhaler] Cyclobenzaprine [Flexeril] 10 mg PO TID PRN 12/18/22 12/18/22 - Allergies Allergies/Adverse Reactions: Allergies Allergy/AdvReac Type Severity Reaction Status Date / Time Penicillins Allergy Mild Itching Verified 12/18/22 16:00 adhesive Allergy Itching Verified 12/18/22 16:00 - Social History Does the pt smoke?: No Smoking Status: Former smoker Does the pt drink ETOH?: No Does the pt have substance abuse?: Yes Substance Use and Type: Marijuana - Immunizations Immunizations are current?: Yes - POLST Patient has POLST: No PD ED PE NORMAL - Vitals Vital signs reviewed: Yes - General General: Alert and oriented X 3, No acute distress - HEENT HEENT: Atraumatic, PERRL - Neck Neck: Supple, no meningeal sign - Cardiac Cardiac: RRR, Strong equal pulses - Respiratory Respiratory: No respiratory distress, Clear bilaterally - Abdomen Abdomen: Soft, Non tender, Non distended - Derm Derm: Warm and dry, Other (multiple excoriations over face, arms, abdomen, legs. no surrounding cellulitis, no abscess) - Extremities Extremities: No deformity, No tenderness to palpate, Normal ROM s pain, No edema - Neuro Neuro: Alert and oriented X 3, slot key person 2-12 intact, No motor deficit, Normal speech Results - Vitals Vitals: Vital Signs - 24 hr 12/18/22 12/18/22 12/18/22 15:57 18:05 19:20 Temperature 37.1 C 37.4 C 37 C Heart Rate 94 97 82 Respiratory 16 16 20 Rate Blood Pressure 113/73 119/83 H 131/74 H O2 Saturation 100 100 100 Oxygen O2 Source Room air - Labs Labs: Laboratory Tests 12/18/22 12/18/22 17:16 17:16 WBC 8.1 RBC 4.13 L Hgb 12.9 Hct 38.2 MCV 92.5 MCH 31.2 H MCHC 33.8 RDW 12.7 Plt Count 388 MPV 9.7 Neut # (Auto) 4.7 Lymph # (Auto) 2.7 [place] # (Auto) 0.6 Eos # (Auto) 0.1 Baso # (Auto) 0.0 Absolute Nucleated RBC 0.00 Nucleated RBC % 0.0 Sodium 135 Potassium 3.6 Chloride 102 Carbon Dioxide 26 Anion Gap 7.0 BUN 21 H Creatinine 0.8 Estimated GFR (MDRD) 75 L Glucose 173 H Calcium 9.6 Total Bilirubin 0.6 AST 40 ALT 35 Alkaline Phosphatase 83 Total Protein 7.3 Albumin 4.2 Globulin 3.1 Albumin/Globulin Ratio 1.4 Lipase 10 L PD Medical Decision Making - ED course Complexity details: reviewed results, re-evaluated patient, considered differential, d/w patient ED course: Nontoxic-appearing patient presenting for rash over body. These appear to be excoriations similar to skin picking behavior. Patient denies amphetamine use, however when asked to provide a urine sample she told nursing staff "you guys don't know what the fuck you are doing, I want to leave" and eloped from the emergency department. I was informed by nursing staff of the patient's departure. Departure - Departure Disposition: ED El[place] Clinical Impression: Rash, Eloped from emergency department Condition: Stable Forms: PCP List Discharge Date/Time: 12/18/22 19:30
[2022-12-18 19:35] VITALS: BP 131/74
== END 2022-12-18 19:30 | disposition left against medical advice (07) ==
LOC: ED 15:53
DX: R21 Rash and other nonspecific skin eruption (principal); Z87.891 Personal history of nicotine dependence
CPT/HCPCS: 36415; 80053; 83690; 85025; 99283

== ENCOUNTER 2023-01-16 10:34 | Outpatient (CLI) | payer MEDICARE, MEDICAID ==
--- NOTE | 2023-01-16 14:30 | XRAY Report ---
PROCEDURE: Ribs w/PA Chest RT INDICATIONS: RIGHT SIDED RIB PAIN TECHNIQUE: 3 views of the right ribs were acquired, along with a single view chest. COMPARISON: None. FINDINGS: Surgical changes and devices: None. Bones and chest wall: There is a minimally displaced fracture at the lateral right eighth rib, as we ll as slight cortical irregularity of the seventh rib.. No suspicious bony lesions. Overlying soft tissues appear unremarkable. Lungs and pleura: No pleural effusions or pneumothorax. Lungs appear clear. Mediastinum: Mediastinal contours appear normal. Heart size is normal. IMPRESSION: Minimally displaced lateral right eighth and nondisplaced seventh rib fractures. Reviewed by: Brigitte Velasco MD on 01/16/2023 2:29 PM PDT Approved by: Brigitte Velasco MD on 01/16/2023 2:29 PM PDT Station ID: [id number]
== END 2023-01-16 23:59 | disposition home or self-care (01) ==
LOC: DI.S 10:34
PROVIDERS: ATTEND Physician Assistant
DX: S22.41XA Multiple fractures of ribs, right side, initial encounter for closed fracture (principal)

== ENCOUNTER 2023-05-07 02:06 | Emergency (ER) | payer MEDICARE, MEDICAID ==
[2023-05-07] MEDS ORDERED: oxyCODONE 5 MG TABLET PO STA (02:39)
--- NOTE | 2023-05-07 02:41 | ED Physician Documentation ---
PD KATHE HEENT - Stated complaint Stated Complaint: TOOTH PX - Chief complaint Chief Complaint: Heent - History obtained from History obtained from: Patient - Additional information Additional information: 52-year-old female presents for dental pain. She states that she had been on antibiotics at the care home for a dental infection, but has been off of antibiotics for the last 3 days. She is going tomorrow to the care home to scrap picker her prescription, but her pain is worsening and not improved with Tylenol. She is making an appointment with a dentist tomorrow Review of Systems Constitutional: denies: Fever, Chills Throat: reports: Dental pain / toothache. denies: Oral lesions / sores, Sore throat, Swollen tonsils Cardiac: denies: Chest pain / pressure, Palpitations Respiratory: denies: Dyspnea, Cough PD PAST MEDICAL HISTORY - Past Medical History Past Medical History: Yes Cardiovascular: Hypertension Respiratory: Shortness of breath Neuro: None Endocrine/Autoimmune: Type 2 diabetes, HyPOthyroidism GI: None REFRACTORY TECHNICIAN: None : None HEENT: None Psych: Depression, Anxiety Musculoskeletal: None Derm: None - Past Surgical History Past Surgical History: Yes Ortho: Knee replacement /REFRACTORY TECHNICIAN: Hysterectomy - Present Medications Home Medications: Ambulatory Orders Medication Instructions Recorded Confirmed Propranolol [Inderal] 120 mg PO DAILY 04/04/16 05/07/23 Ibuprofen 600 mg ORAL PRN PRN 11/08/16 05/07/23 Levothyroxine [Synthroid] 75 mcg ORAL DAILY 11/08/16 05/07/23 Albuterol Sulf [Ventolin Hfa 2 puffs INH Q4H PRN 11/09/16 05/07/23 Inhaler] Cyclobenzaprine [Flexeril] 10 mg PO TID PRN 12/18/22 05/07/23 HYDROcod/ACETAM 5/325 [Harvey 5/325] 1 tab PO Q6H PRN #10 tablet 05/07/23 - Allergies Allergies/Adverse Reactions: Allergies Allergy/AdvReac Type Severity Reaction Status Date / Time Penicillins Allergy Mild Itching Verified 05/07/23 02:20 adhesive Allergy Itching Verified 05/07/23 02:20 - Social History Does the pt smoke?: No Smoking Status: Never smoker Does the pt drink ETOH?: No ETOH Use: Beer Does the pt have substance abuse?: Yes - Immunizations Immunizations are current?: Yes - POLST Patient has POLST: No PD ED PE NORMAL - Vitals Vital signs reviewed: Yes - General General: Alert and oriented X 3, No acute distress, Well developed/nourished - HEENT HEENT: Moist mucous membranes, Pharynx benign, Other (Extensive, extremely poor dentition. No trismus, no pooling of secretions, no swelling, no abscess) - Cardiac Cardiac: Strong equal pulses - Respiratory Respiratory: No respiratory distress, Clear bilaterally - Derm Derm: Normal color, Warm and dry, No rash - Extremities Extremities: No deformity, No tenderness to palpate - Neuro Neuro: Alert and oriented X 3, reporting process consultant 2-12 intact, No motor deficit, Normal speech Results - Vitals Vitals: Vital Signs - 24 hr 05/07/23 05/07/23 02:10 02:50 Temperature 36.4 C L Heart Rate 118 H 102 H Respiratory 18 16 Rate Blood Pressure 140/111 H 111/91 H O2 Saturation 99 100 Oxygen O2 Source Room air PD Medical Decision Making - ED course Complexity details: reviewed results, re-evaluated patient, considered differential, d/w patient ED course: Dental pain. Previously on antibiotics, has been off for the last several days but is going tomorrow to scrap picker her antibiotic prescription from the care home. Patient primarily here for pain control. There is extensive poor dentition on exam but benign pharynx and tongue. Patient given a dose of pain medication and short course of medication sent to pharmacy. Departure - Departure Disposition: 01 Home, Self Care Clinical Impression: Pain due to dental caries Condition: Stable Instructions: ED Tooth Pain, NARCOTIC, Oral Prescriptions: HYDROcod/ACETAM 5/325 [Harvey 5/325] 1 tab PO Q6H PRN #10 tablet PRN Reason: Pain Comments: Continue your antibiotics when you pick them up from the care home tomorrow as previously prescribed. The medications prescribed may cause constipation so take a stool softener with these medications. Do not take these medications with alcohol or before operating heavy machinery. Forms: PCP List Discharge Date/Time: 05/07/23 02:56
[2023-05-07 03:05] VITALS: BP 111/91; O2SAT 100
== END 2023-05-07 02:56 | disposition home or self-care (01) ==
LOC: ED 02:06
DX: K02.9 Dental caries, unspecified (principal); I10 Essential (primary) hypertension; E11.9 Type 2 diabetes mellitus without complications
CPT/HCPCS: 99282; 99283; A9270